=== PATIENT | male | born 1950 | race Caucasian/White ===

== ENCOUNTER 2020-07-09 13:08 | Observation (INO) | payer MEDICARE ==
[2020-07-09] MEDS ORDERED: Sodium Chloride 0.9% 10 ML Syringe FLUSH PRN (13:20)
[2020-07-09] MEDS ORDERED: Pantoprazole 40 MG in Sodium Chloride 0.9% 10 ML IV ONE (13:20)
[2020-07-09] MEDS ORDERED: Sodium Chloride 0.9% 2.5 ML Syringe FLUSH PRN (13:20)
--- NOTE | 2020-07-09 13:23 | EDM.PDOC ---
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 EMS found him wanting to refuse transport but admitting that he has lost blood per rectum and feels unsteady and like he might pass out. He wanted to get back in his truck and drive. He was told he was not going to be safe to do so and agreed to come into the emergency department to be evaluated and cleared if possible. The patient thinks his blood is from hemorrhoids. He says also it is dark and he has a history only of gastroesophageal reflux disease for which he is on no medicine. He is lightheaded and unsteady when he stands. Review of systems: As per history of present illness and below otherwise all systems reviewed and negative. Past medical history: As per history of present illness and as reviewed below otherwise noncontributory. Surgical history: As per history of present illness and as reviewed below otherwise noncontrib utory. Social history: No reported history of drug or alcohol abuse. Family history: As per history of present illness and as reviewed below otherwise noncontributory. Physical exam: Constitutional - well developed, well-nourished and in no acute distress HEENT - normocephalic, no evidence of trauma - external nose and mouth normal - no mass in neck and no JVD - mucosae moist EYES - full EOM, PERRL, no icterus - no evidence of inflammation, injection, or drainage Respiratory - no respiratory distress, equal bilateral expansion, lungs clear to auscultation and no abnormal lung sounds Cardiovascular - Regular Rhythm with S1 and S2 appreciated and no murmur, gallop or rub. GI - abdomen soft without distension or organomegaly - normal bowel sounds - no guard or rebound Musculoskeletal no gross deformity of long bones or joints - no tenderness, swelling or edema Neurologic - Alert and oriented times four - CN II-XII grossly intact - motor sensory and coordination symmetrically normal Psychiatric - appropriate mood and affect with normal thought content Hematologic - No petechiae or purpura - mucosa appropriate color and sclera not pale - normal nail bed color and refill Integument - no rash or evidence of trauma - normal turgor Diagnostics: [] Therapeutics: [] Impression: [] Plan: [] Definitive disposition and diagnosis as appropriate pending reevaluation and re view of above. - Related Data Allergies Allergy/AdvReac Type Severity Reaction Status Date / Time No Known Allergies Allergy Verified 07/09/20 13:30 Home Meds: Home Meds Omeprazole 20 mg PO DAILY 07/09/20 [History] ED ROS GENERAL - Review of Systems Review Of Systems: Comprehensive ROS is negative, except as noted in HPI. ED EXAM, GENERAL - Physical Exam Exam: See Below Free Text/Narrative:: My physical exam is in the HPI Course - Vital Signs Text/Narrative:: 1340 7 PM rectal exam the perianal soft tissues are soiled with incontinence of a few cc of melena. The rectal exam itself is normal. The melena is heme positive. Patient gets dizzy while he stands for orthostatic vital signs. His pressure drops but his pulse does not go up. 1558 hrs. blood pressure 177/99 pulse 69 patient is asymptomatic. Review of his labs and CT revealed that he has an active process-itis. Discussed with Dr. Wu who is on-call for surgery and also does endoscopy. Dr. Wu agreed to scope the patient if he needs it while he is here and will be participating in the care with Dr. Esquivel as needed or requested. Discussed again with Dr. Esquivel and she most graciously agreed to admit the patient to observation status. Last Recorded V/S: Last Vital Signs Temp 35.6 C L 07/09/20 13:25 Pulse 76 07/09/20 13:25 Resp 16 07/09/20 13:25 BP 150/80 H 07/09/20 13:25 Pulse Ox 95 07/09/20 13:25 Orthostatic Blood Pressure [ 110/75 Sitting] Orthostatic Blood Pressure [ 148/104 Supine] - Orders/Labs/Meds Orders: Active Orders 24 hr Category Date Time Status Admission Status [Patient Status] [ADT] Stat ADT 07/09/20 16:12 Ordered Cardiac Monitoring [RC] . DIRECTED Care 07/09/20 15:25 Active Cardiac Monitoring [RC] . DIRECTED Care 07/09/20 16:12 Ordered Orthostatic Vital Signs [RC] ASDIRECTED Care 07/09/20 13:21 Active CORONAVIRUS COVID-19 ARI [MOLEC] Stat Lab 07/09/20 14:51 Ordered CULTURE BLOOD [BC] Stat Lab 07/09/20 16:10 Ordered CULTURE BLOOD [BC] Stat Lab 07/09/20 16:10 Ordered Piperacillin/Tazobactam [Piperacil-Tazobact] 4.5 gm Med 07/09/20 16:10 Ordered Sodium Chloride 0.9% [Normal Saline] 100 ml IV ONETIME Sodium Chloride 0.9% [Saline Flush] Med 07/09/20 13:20 Active 10 ml FLUSH ASDIRECTED PRN Sodium Chloride 0.9% [Saline Flush] Med 07/09/20 13:20 Active 2.5 ml FLUSH ASDIRECTED PRN Sodium Chloride 0.9% with KCl [Normal Saline with 40 Med 07/09/20 14:15 Active mEq KCl] 1,000 ml IV ASDIRECTED metroNIDAZOLE/Normal Saline [Flagyl in NS 500 MG/100 ML Med 07/09/20 16:11 Ordered ] 500 mg Premix Bag 1 bag IV ONETIME Blood Culture x2 Reflex Set [OM.PC] Stat Oth 07/09/20 16:10 Ordered Saline Lock Insert [OM.PC] Stat Oth 07/09/20 13:20 Ordered Medication Orders Potassium Chloride/Sodium Chloride (Normal Saline With 40 Meq Kcl) 1,000 mls @ 250 mls/hr IV ASDIRECTED HUNG Last Admin: 07/09/20 14:18 Dose: 250 mls/hr Documented by: [id number] Piperacillin Sod/Tazobactam (Sod 4.5 gm/ Sodium Chloride) 100 mls @ 100 mls/hr IV ONETIME ONE Stop: 07/09/20 17:09 Metronidazole 500 mg/ Premix 100 mls @ 100 mls/hr IV ONETIME ONE Stop: 07/09/20 17:10 Sodium Chloride (Sodium Chloride 0.9% 10 Ml Syringe) 10 ml FLUSH ASDIRECTED PRN PRN Reason: Keep Vein Open Last Admin: 07/09/20 13:33 Dose: 10 ml Documented by: [id number] Sodium Chloride (Sodium Chloride 0.9% 2.5 Ml Syringe) 2.5 ml FLUSH ASDIRECTED PRN PRN Reason: Keep Vein Open Last Admin: 07/09/20 13:33 Dose: 2.5 ml Documented by: [id number] Labs: Laboratory Tests 07/09/20 07/09/20 Range/Units 13:26 13:26 WBC 15.19 H (4.0-11.0) K/uL RBC 4.01 L (4.50-5.90) M/uL Hgb 12.5 L (13.0-17.0) g/dL Hct 37.0 L (38.0-50.0) % MCV 92.3 (80.0-98.0) fL MCH 31.2 (27.0-32.0) pg MCHC 33.8 (31.0-37.0) g/dL RDW Std Deviation 54.5 (28.0-62.0) fl RDW Coeff of Teo 16 H (11.0-15.0) % Plt Count 375 (150-400) K/uL MPV 10.40 (7.40-12.00) fL Neut % (Auto) 75.9 (48.0-80.0) % Lymph % (Auto) 18.0 (16.0-40.0) % Jenkins % (Auto) 5.9 (0.0-15.0) % Eos % (Auto) 0.1 (0.0-7.0) % Baso % (Auto) 0.1 (0.0-1.5) % Neut # (Auto) 11.5 H (1.4-5.7) K/uL Lymph # (Auto) 2.7 H (0.6-2.4) K/uL Jenkins # (Auto) 0.9 H (0.0-0.8) K/uL Eos # (Auto) 0.0 (0.0-0.7) K/uL Baso # (Auto) 0.0 (0.0-0.1) K/uL Nucleated RBC % 0.0 /100WBC Nucleated RBCs # 0 K/uL Sodium 131 L (136-148) mmol/L Potassium 2.5 L (3.5-5.1) mmol/L Chloride 89 L (98-107) mmol/L Carbon Dioxide 29.7 (21.0-32.0) mmol/L BUN 19 H (7.0-18.0) mg/dL Creatinine 1.8 H (0.8-1.3) mg/dL Est Cr Clr Drug Dosing 47.60 mL/min Estimated GFR (MDRD) 37.8 ml/min Glucose 135 H (74-106) mg/dL Calcium 8.6 (8.5-10.1) mg/dL Total Bilirubin 1.4 H (0.2-1.0) mg/dL AST 45 H (15-37) IU/L ALT 33 (14-63) IU/L Alkaline Phosphatase 145 H (46-116) U/L Total Protein 7.1 (6.4-8.2) g/dL Albumin 3.3 L (3.4-5.0) g/dL Globulin 3.8 (2.6-4.0) g/dL Albumin/Globulin Ratio 0.9 (0.9-1.6) Lipase 56 L (73-393) U/L Meds: Medications Generic Name Dose Route Start Last Admin Trade Name Freq PRN Reason Stop Dose Admin Potassium Chloride/Sodium Chloride 1,000 mls @ 250 mls/hr 07/09/20 14:15 07/09/20 14:18 Normal Saline With 40 Meq Kcl IV 250 mls/hr ASDIRECTED HUNG Administration Piperacillin Sod/Tazobactam 100 mls @ 100 mls/hr 07/09/20 16:10 Sod 4.5 gm/ Sodium Chloride IV 07/09/20 17:09 ONETIME ONE Metronidazole 500 mg/ Premix 100 mls @ 100 mls/hr 07/09/20 16:11 IV 07/09/20 17:10 ONETIME ONE Sodium Chloride 10 ml 07/09/20 13:20 07/09/20 13:33 Sodium Chloride 0.9% 10 Ml Syringe FLUSH 10 ml ASDIRECTED PRN Administration Keep Vein Open Sodium Chloride 2.5 ml 07/09/20 13:20 07/09/20 13:33 Sodium Chloride 0.9% 2.5 Ml Syringe FLUSH 2.5 ml ASDIRECTED PRN Administration Keep Vein Open Discontinued Medications Generic Name Dose Route Start Last Admin Trade Name Freq PRN Reason Stop Dose Admin Pantoprazole Sodium 40 mg/ 10 mls @ 300 mls/hr 07/09/20 13:20 07/09/20 13:32 Sodium Chloride IV 07/09/20 13:21 300 mls/hr NOW ONE Administration Sodium Chloride 1,000 mls @ 1,000 mls/hr 07/09/20 13:49 07/09/20 14:11 Normal Saline IV 07/09/20 14:48 0 mls/hr .Bolus ONE Infusion Iopamidol 75 ml 07/09/20 15:13 07/09/20 15:14 Iopamidol 755 Mg/Ml 500 Ml Multipack Bottle IVPUSH 07/09/20 15:14 75 ml ONETIME STA Administration Departure - Departure Time of Disposition: 16:14 Disposition: Refer to Observation Condition: Good Clinical Impression: GI bleed, Proctitis, Hypokalemia, Hyponatremia, Volume depletion - Discharge Information Referrals: PCP,None [Primary Care Provider] - Forms: ED Department Discharge Sepsis Event Note (ED) - Focused Exam Vital Signs: Vital Signs Temp Pulse Resp BP Pulse Ox 07/09/20 13:25 35.6 C L 76 16 150/80 H 95 - My Orders Last 24 Hours: My Active Orders 07/09/20 13:20 Sodium Chloride 0.9% [Saline Flush] 10 ml FLUSH ASDIRECTED PRN Sodium Chloride 0.9% [Saline Flush] 2.5 ml FLUSH ASDIRECTED PRN Saline Lock Insert [OM.PC] Stat 07/09/20 13:21 Orthostatic Vital Signs [RC] ASDIRECTED 07/09/20 14:15 Sodium Chloride 0.9% with KCl [Normal Saline with 40 mEq KCl] 1,000 ml IV ASDIRECTED 07/09/20 14:51 CORONAVIRUS COVID-19 ARI [MOLEC] Stat 07/09/20 15:25 Cardiac Monitoring [RC] . DIRECTED 07/09/20 16:10 CULTURE BLOOD [BC] Stat CULTURE BLOOD [BC] Stat Piperacillin/Tazobactam [Piperacil-Tazobact] 4.5 gm Sodium Chloride 0.9% [Normal Saline] 100 ml IV ONETIME Blood Culture x2 Reflex Set [OM.PC] Stat 07/09/20 16:11 metroNIDAZOLE/Normal Saline [Flagyl in NS 500 MG/100 ML] 500 mg Premix Bag 1 b ag IV ONETIME 07/09/20 16:12 Admission Status [Patient Status] [ADT] Stat Cardiac Monitoring [RC] . DIRECTED - Assessment/Plan Last 24 Hours: My Active Orders 07/09/20 13:20 Sodium Chloride 0.9% [Saline Flush] 10 ml FLUSH ASDIRECTED PRN Sodium Chloride 0.9% [Saline Flush] 2.5 ml FLUSH ASDIRECTED PRN Saline Lock Insert [OM.PC] Stat 07/09/20 13:21 Orthostatic Vital Signs [RC] ASDIRECTED 07/09/20 14:15 Sodium Chloride 0.9% with KCl [Normal Saline with 40 mEq KCl] 1,000 ml IV ASDIRECTED 07/09/20 14:51 CORONAVIRUS COVID-19 ARI [MOLEC] Stat 07/09/20 15:25 Cardiac Monitoring [RC] . DIRECTED 07/09/20 16:10 CULTURE BLOOD [BC] Stat CULTURE BLOOD [BC] Stat Piperacillin/Tazobactam [Piperacil-Tazobact] 4.5 gm Sodium Chloride 0.9% [ Normal Saline] 100 ml IV ONETIME Blood Culture x2 Reflex Set [OM.PC] Stat 07/09/20 16:11 metroNIDAZOLE/Normal Saline [Flagyl in NS 500 MG/100 ML] 500 mg Premix Bag 1 bag IV ONETIME 07/09/20 16:12 Admission Status [Patient Status] [ADT] Stat Cardiac Monitoring [RC] . DIRECTED
[2020-07-09] MEDS ORDERED: Sodium Chloride 0.9% 1,000 ML IV ONE (13:49)
[2020-07-09 14:02] LABS: CARBON DIOXIDE,CO2 29.7 mmol/L (21.0-32.0); POTASSIUM,K 2.5 mmol/L (3.5-5.1)
[2020-07-09] MEDS ORDERED: Sodium Chloride 0.9% with KCl 1,000 ML IV SCH (14:15)
[2020-07-09] MEDS ORDERED: Iopamidol 755 MG/ML 500 ML Multipack Bottle IVPUSH STA (15:13)
--- NOTE | 2020-07-09 15:51 | CT ---
INDICATION: Melanoma, dizzy. TECHNIQUE: CT of the abdomen and pelvis without and with 75 cc Isovue 370 IV contrast including arterial and portal venous phases. Coronal and sagittal reconstructions. COMPARISON: None. FINDINGS: Few tiny low-attenuation lesions in the right hepatic lobe are too small to characterize. Hepatic and portal veins are patent. Cholelithiasis. The spleen, pancreas, and adrenal glands are negative. Symmetric enhancement of the kidneys. Moderate atrophy of the right kidney. No hydronephrosis. No obstructing urinary calculi. Mild diffuse bladder wall thickening may be related to chronic outlet obstruction. Mildly enlarged prostate gland calcifications. No bowel dilation. There is wall thickening and inflammatory fat stranding about the rectum compatible with a nonspecific proctitis (series 701, image 121). No pneumatosis or evidence of ischemia. No intraluminal blood products identified. Negative appendix. No small bowel dilation. The stomach is normal in appearance. No intraperitoneal free air or fluid. Aortoiliac vascular calcifications. The abdominal aorta is normal in caliber. The celiac and superior mesenteric arteries are patent without stenosis. The origin of the right renal artery is patent and normal in caliber, however the remainder of the right renal artery is diminutive in size. Narrowing of the proximal left renal artery atheromatous plaque. 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 No lymphadenopathy. Bilateral L5 pars interarticularis defects with mild anterolisthesis of L5 on S1. The lung bases are clear. Small pericardial effusion lying inferiorly and anteriorly. Coronary artery calcifications. Bilateral gynecomastia. IMPRESSION: 1. Wall thickening and inflammatory fat stranding about the rectum compatible with a nonspecific proctitis. No evidence of ischemia or intraluminal blood products. 2. Moderate atrophy of the right kidney with a diminutive right renal artery. 3. Narrowing of the proximal left renal artery by atheromatous plaque. 4. 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 5. Small pericardial effusion. Please note that all CT scans at this facility use dose modulation, iterative reconstruction, and/or weight-based dosing when appropriate to reduce radiation dose to as low as reasonably achievable. Dictated by Karen Bucio MD @ 07/09/2020 3:50:[address] Karen Bucio @ Jul 09 2020 3:50PM
[2020-07-09] MEDS ORDERED: Piperacillin/Tazobactam 4.5 GM in Sodium Chloride 0.9% 100 ML IV ONE (16:10)
[2020-07-09] MEDS ORDERED: metroNIDAZOLE/Normal Saline 500 MG in Premix Bag 1 BAG IV ONE (16:11)
--- NOTE | 2020-07-09 16:39 | PCM.HP.2 ---
<Anant Rodríguez - Last Filed: 07/09/20 17:09> H&P History of Present Illness - General Date of Service: 07/09/20 Admit Problem/Dx: Admission Diagnosis/Problem Admission Diagnosis/Problem GI bleed not requiring more than 4 units of blood in 24 hours, ICU, or surgery Source of Information: Patient History Limitations: Reports: No Limitations - History of Present Illness Initial Comments - Free Text/Narative: 69-year-old male with past medical history of GERD presenting to ED via EMS after having been found with unsteady gait while at a gas station and endorsing feeling unsteady and on the verge of passing out. Endorsed to EMS and ED provider significance dark stools x6 days with 2-3 bowel movements daily accompanied with melena. Denies any upper GI bleed or any other overt source of bleeding. Mentions that his bleeding is most likely from his hemorrhoids as he does have a history of hemorrhoids. Patient recently has been driving for 3 days and pulled in from [place]. ED course: Hemoccult positive. Overt melena noted at rectum. Positive orthostatic vital signs will BP drop without reflux tachycardia. Vitals 180/94. Pulse rate 78. Afebrile 96.1 O2 sat 98% room air Abdomen pelvis CT: Wall thickening and inflammatory fat stranding about the rectum compatible with nonspecific proctitis Narrowing of proximal left renal artery by atheromatous plaque. 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 Small pericardial effusion WBC 15. Hemoglobin 12.5. Sodium 131 Hypokalemia 2.5. IMELDA 1.8. T bili 1.4 Alk phos 145. Bedside: Patient endorses similar story as above. Mentions 2-3 bowel movements a day accompanied with dark stools x6 days. Denies any nausea/vomiting, history of upper GI bleed. Patient denies using excess amounts of Tylenol/Advil/aspirin. Denies any illicit drug use. Does endorse 1 to 2 pack/day tobacco abuse x40 years. - Related Data Allergies/Adverse Reactions: Allergies Allergy/AdvReac Type Severity Reaction Status Date / Time No Known Allergies Allergy Verified 07/09/20 13:30 Home Medications: Home Meds Omeprazole 20 mg PO DAILY 07/09/20 [History] Past Medical History Gastrointestinal History: Reports: GERD - Infectious Disease History Infectious Disease History: Reports: None Social & Family History - Family History Family Medical History: No Pertinent Family History - Recreational Drug Use Recreational Drug Use: No H&P Review of Systems - Review of Systems: Review Of Systems: See Below General: Reports: Weakness, Fatigue. Denies: Fever, Chills HEENT: Reports: No Symptoms Pulmonary: Reports: Cough. Denies: Shortness of Breath, Wheezing, Sputum, Hemoptysis Cardiovascular: Denies: No Symptoms Gastrointestinal: Reports: Black Stool, Melena, Nausea. Denies: Abdominal Pain, Bloody Stool, Constipation, Vomiting Genitourinary: Reports: No Symptoms Musculoskeletal: Reports: No Symptoms Psychiatric: Reports: No Symptoms Neurological: Reports: No Symptoms Exam - Exam Exam: See Below - Vital Signs Vital Signs: Last Vital Signs Temp 96.1 F L 07/09/20 13:25 Pulse 78 07/09/20 16:19 Resp 16 07/09/20 13:25 BP 180/94 H 07/09/20 16:19 Pulse Ox 98 07/09/20 16:19 Orthostatic Blood Pressure [ 110/75 Sitting] Orthostatic Blood Pressure [ 148/104 Supine] Weight: 86.183 kg - Exam Quality Assessment: No: Supplemental Oxygen General: Alert, Oriented, Cooperative HEENT: EOMI, Mucosa Moist & [place] Neck: Supple, Trachea Midline Lungs: Other (diminshed BS diffusely; no wheeze rales and or rhonchi ) Cardiovascular: Regular Rate, Regular Rhythm GI/Abdominal Exam: Soft, Non-Tender, Other (rectum: overt dark stool noted at rectal opening; good tone; +hemorrhoid ) Extremities: Normal Inspection Neurological: Normal Speech Neuro Extensive - Mental Status: Alert, Oriented x3 Psychiatric: Alert, Normal Mood - Patient Data Lab Results Last 24 hrs: Laboratory Results - last 24 hr 07/09/20 07/09/20 Range/Units 13:26 13:26 WBC 15.19 H (4.0-11.0) K/uL RBC 4.01 L (4.50-5.90) M/uL Hgb 12.5 L (13.0-17.0) g/dL Hct 37.0 L (38.0-50.0) % MCV 92.3 (80.0-98.0) fL MCH 31.2 (27.0-32.0) pg MCHC 33.8 (31.0-37.0) g/dL RDW Std Deviation 54.5 (28.0-62.0) fl RDW Coeff of Teo 16 H (11.0-15.0) % Plt Count 375 (150-400) K/uL MPV 10.40 (7.40-12.00) fL Neut % (Auto) 75.9 (48.0-80.0) % Lymph % (Auto) 18.0 (16.0-40.0) % [place] % (Auto) 5.9 (0.0-15.0) % Eos % (Auto) 0.1 (0.0-7.0) % Baso % (Auto) 0.1 (0.0-1.5) % Neut # (Auto) 11.5 H (1.4-5.7) K/uL Lymph # (Auto) 2.7 H (0.6-2.4) K/uL [place] # (Auto) 0.9 H (0.0-0.8) K/uL Eos # (Auto) 0.0 (0.0-0.7) K/uL Baso # (Auto) 0.0 (0.0-0.1) K/uL Nucleated RBC % 0.0 /100WBC Nucleated RBCs # 0 K/uL Sodium 131 L (136-148) mmol/L Potassium 2.5 L (3.5-5.1) mmol/L Chloride 89 L (98-107) mmol/L Carbon Dioxide 29.7 (21.0-32.0) mmol/L BUN 19 H (7.0-18.0) mg/dL Creatinine 1.8 H (0.8-1.3) mg/dL Est Cr Clr Drug Dosing 47.60 mL/min Estimated GFR (MDRD) 37.8 ml/min Glucose 135 H (74-106) mg/dL Calcium 8.6 (8.5-10.1) mg/dL Total Bilirubin 1.4 H (0.2-1.0) mg/dL AST 45 H (15-37) IU/L ALT 33 (14-63) IU/L Alkaline Phosphatase 145 H (46-116) U/L Total Protein 7.1 (6.4-8.2) g/dL Albumin 3.3 L (3.4-5.0) g/dL Globulin 3.8 (2.6-4.0) g/dL Albumin/Globulin Ratio 0.9 (0.9-1.6) Lipase 56 L (73-393) U/L Result Diagrams: 07/09/20 13:26 07/09/20 13:26 Sepsis Event Note - Evaluation Sepsis Screening Result: No Definite Risk - Focused Exam Vital Signs: Vital Signs Temp Pulse Resp BP Pulse Ox 07/09/20 16:19 78 180/94 H 98 07/09/20 13:25 96.1 F L 76 16 150/80 H 95 - Problem List (1) GI bleed SNOMED Code(s): 96829415 ICD Code: K92.2 - GASTROINTESTINAL HEMORRHAGE, UNSPECIFIED Status: Acute Current Visit: Yes (2) Hypokalemia SNOMED Code(s): 47280146 ICD Code: E87.6 - HYPOKALEMIA Status: Acute Current Visit: Yes (3) Hyponatremia SNOMED Code(s): 38190468 ICD Code: E87.1 - HYPO-OSMOLALITY AND HYPONATREMIA Status: Acute Current Visit: Yes (4) Proctitis SNOMED Code(s): 3155492 ICD Code: K62.89 - OTHER SPECIFIED DISEASES OF ANUS AND RECTUM Status: Acute Current Visit: Yes Problem List Initiated/Reviewed/Updated: Yes Orders Last 24hrs: Active Orders 24 hr Category Date Time Status Admission Status [Patient Status] [ADT] Stat ADT 07/09/20 16:12 Active Cardiac Monitoring [RC] . DIRECTED Care 07/09/20 15:25 Active Cardiac Monitoring [RC] . DIRECTED Care 07/09/20 16:12 Active Orthostatic Vital Signs [RC] ASDIRECTED Care 07/09/20 13:21 Active CORONAVIRUS COVID-19 ARI [MOLEC] Stat Lab 07/09/20 16:28 Received CULTURE BLOOD [BC] Stat Lab 07/09/20 16:10 Ordered CULTURE BLOOD [BC] Stat Lab 07/09/20 16:10 Ordered Piperacillin/Tazobactam [Piperacil-Tazobact] 4.5 gm Med 07/09/20 16:10 Active Sodium Chloride 0.9% [Normal Saline] 100 ml IV ONETIME Sodium Chloride 0.9% [Saline Flush] Med 07/09/20 13:20 Active 10 ml FLUSH ASDIRECTED PRN Sodium Chloride 0.9% [Saline Flush] Med 07/09/20 13:20 Active 2.5 ml FLUSH ASDIRECTED PRN Sodium Chloride 0.9% with KCl [Normal Saline with 40 Med 07/09/20 14:15 Active mEq KCl] 1,000 ml IV ASDIRECTED metroNIDAZOLE/Normal Saline [Flagyl in NS 500 MG/100 ML Med 07/09/20 16:11 Active ] 500 mg Premix Bag 1 bag IV ONETIME Blood Culture x2 Reflex Set [OM.PC] Stat Oth 07/09/20 16:10 Ordered Saline Lock Insert [OM.PC] Stat Oth 07/09/20 13:20 Ordered Medication Orders Potassium Chloride/Sodium Chloride (Normal Saline With 40 Meq Kcl) 1,000 mls @ 250 mls/hr IV ASDIRECTED HUNG Last Admin: 07/09/20 14:18 Dose: 250 mls/hr Documented by: [id number] Piperacillin Sod/Tazobactam (Sod 4.5 gm/ Sodium Chloride) 100 mls @ 100 mls/hr IV ONETIME ONE Stop: 07/09/20 17:09 Metronidazole 500 mg/ Premix 100 mls @ 100 mls/hr IV ONETIME ONE Stop: 07/09/20 17:10 Sodium Chloride (Sodium Chloride 0.9% 10 Ml Syringe) 10 ml FLUSH ASDIRECTED PRN PRN Reason: Keep Vein Open Last Admin: 07/09/20 13:33 Dose: 10 ml Documented by: [id number] Sodium Chloride (Sodium Chloride 0.9% 2.5 Ml Syringe) 2.5 ml FLUSH ASDIRECTED PRN PRN Reason: Keep Vein Open Last Admin: 07/09/20 13:33 Dose: 2.5 ml Documented by: [email or web address] Assessment/Plan Comment:: Assessment: 1. Proctitis 2. Hemoccult positive in setting of proctitis 3. Leukocytosis secondary to 1. 4. Normocytic anemia. 5. Hypokalemia 6. Hyponatremia. 7. Acute kidney injury. 8. Elevated total bilirubin 9. Past medical history: Tobacco abuse, GERD Plan Admit to observation. Full code. I's and O's per routine. Vitals per routine. Telemetry. Diet: Clear liquid diet GI prophylaxis: Pantoprazole 40 twice daily DVT prophylaxis: SCDs <Ovidio Esquivel - Last Filed: 07/09/20 18:19> H&P History of Present Illness - General Admit Problem/Dx: Admission Diagnosis/Problem Admission Diagnosis/Problem GI bleed not requiring more than 4 units of blood in 24 hours, ICU, or surgery Exam - Vital Signs Vital Signs: Last Vital Signs Temp 35.6 C L 07/09/20 13:25 Pulse 87 07/09/20 17:53 Resp 19 07/09/20 17:53 BP 174/86 H 07/09/20 17:53 Pulse Ox 98 07/09/20 17:53 Orthostatic Blood Pressure [ 110/75 Sitting] Orthostatic Blood Pressure [ 148/104 Supine] - Patient Data Lab Results Last 24 hrs: Laboratory Results - last 24 hr 07/09/20 07/09/20 07/09/20 Range/Units 13:26 13:26 16:28 WBC 15.19 H (4.0-11.0) K/uL RBC 4.01 L (4.50-5.90) M/uL Hgb 12.5 L (13.0-17.0) g/dL Hct 37.0 L (38.0-50.0) % MCV 92.3 (80.0-98.0) fL MCH 31.2 (27.0-32.0) pg MCHC 33.8 (31.0-37.0) g/dL RDW Std Deviation 54.5 (28.0-62.0) fl RDW Coeff of Teo 16 H (11.0-15.0) % Plt Count 375 (150-400) K/uL MPV 10.40 (7.40-12.00) fL Neut % (Auto) 75.9 (48.0-80.0) % Lymph % (Auto) 18.0 (16.0-40.0) % [place] % (Auto) 5.9 (0.0-15.0) % Eos % (Auto) 0.1 (0.0-7.0) % Baso % (Auto) 0.1 (0.0-1.5) % Neut # (Auto) 11.5 H (1.4-5.7) K/uL Lymph # (Auto) 2.7 H (0.6-2.4) K/uL [place] # (Auto) 0.9 H (0.0-0.8) K/uL Eos # (Auto) 0.0 (0.0-0.7) K/uL Baso # (Auto) 0.0 (0.0-0.1) K/uL Nucleated RBC % 0.0 /100WBC Nucleated RBCs # 0 K/uL Sodium 131 L (136-148) mmol/L Potassium 2.5 L (3.5-5.1) mmol/L Chloride 89 L (98-107) mmol/L Carbon Dioxide 29.7 (21.0-32.0) mmol/L BUN 19 H (7.0-18.0) mg/dL Creatinine 1.8 H (0.8-1.3) mg/dL Est Cr Clr Drug Dosing 47.60 mL/min Estimated GFR (MDRD) 37.8 ml/min Glucose 135 H (74-106) mg/dL Calcium 8.6 (8.5-10.1) mg/dL Total Bilirubin 1.4 H (0.2-1.0) mg/dL AST 45 H (15-37) IU/L ALT 33 (14-63) IU/L Alkaline Phosphatase 145 H (46-116) U/L Total Protein 7.1 (6.4-8.2) g/dL Albumin 3.3 L (3.4-5.0) g/dL Globulin 3.8 (2.6-4.0) g/dL Albumin/Globulin Ratio 0.9 (0.9-1.6) Lipase 56 L (73-393) U/L SARS-CoV-2 RNA (ARI) NEGATIVE (NEGATIVE) Result Diagrams: 07/09/20 13:26 07/09/20 13:26 Sepsis Event Note - Focused Exam Vital Signs: Vital Signs Temp Pulse Resp BP Pulse Ox 07/09/20 17:53 87 19 174/86 H 98 07/09/20 17:19 86 20 184/96 H 96 07/09/20 16:19 78 180/94 H 98 07/09/20 13:25 35.6 C L 76 16 150/80 H 95 Orders Last 24hrs: Active Orders 24 hr Category Date Time Status Admission Status [Patient Status] [ADT] Stat ADT 07/09/20 16:12 Active Antiembolic Devices [RC] PER UNIT ROUTINE Care 07/09/20 18:05 Active Cardiac Monitoring [RC] . DIRECTED Care 07/09/20 15:25 Active Cardiac Monitoring [RC] . DIRECTED Care 07/09/20 16:12 Active Orthostatic Vital Signs [RC] ASDIRECTED Care 07/09/20 13:21 Active Oxygen Therapy [RC] PRN Care 07/09/20 18:03 Active Up With Assistance [RC] ASDIRECTED Care 07/09/20 18:03 Active VTE/DVT Education [RC] PER UNIT ROUTINE Care 07/09/20 18:03 Active Vital Signs [RC] Q4H Care 07/09/20 18:03 Active PT Evaluation and Treatment [CONS] Routine Cons 07/09/20 18:03 Active Clear Liquid Diet [DIET] Diet 07/09/20 Breakfast Active C DIFFICILE AG/TOXIN W/REFLEX [RM] Routine Lab 07/09/20 18:10 Ordered CBC WITH AUTO DIFF [HEME] AM Lab 07/10/20 05:11 Ordered CBC WITH AUTO DIFF [HEME] AM Lab 07/11/20 05:11 Ordered CBC WITH AUTO DIFF [HEME] AM Lab 07/12/20 05:11 Ordered COMPREHENSIVE METABOLIC PN,CMP [CHEM] AM Lab 07/10/20 05:11 Ordered COMPREHENSIVE METABOLIC PN,CMP [CHEM] AM Lab 07/11/20 05:11 Ordered COMPREHENSIVE METABOLIC PN,CMP [CHEM] AM Lab 07/12/20 05:11 Ordered CULTURE BLOOD [BC] Stat Lab 07/09/20 16:31 Received CULTURE BLOOD [BC] Stat Lab 07/09/20 16:37 Received H PYLORI STOOL ANTIGEN [MREF] Routine Lab 07/09/20 18:10 Ordered HGB [HEMOGLOBIN] [HEME] Routine Lab 07/09/20 20:00 Ordered MAGNESIUM [CHEM] Routine Lab 07/09/20 13:26 Received PHOSPHORUS [CHEM] Routine Lab 07/09/20 13:26 Received SHIGA TOXIN 1 & 2 [MREF] Routine Lab 07/09/20 18:16 Ordered STOOL CULTURE/SHIGA TOXIN [MREF] Routine Lab 07/09/20 18:10 Ordered Bacitracin [Bacitracin Oint] Med 07/09/20 22:00 Ordered See Dose Instructions TOP TID Nicotine [Habitrol] Med 07/09/20 18:15 Ordered 21 mg TRDERM DAILY Ondansetron [Zofran ODT] Med 07/09/20 18:03 Ordered 4 mg PO Q4H PRN Pantoprazole [ProTONIX IV] 40 mg Med 07/10/20 05:00 Ordered Sodium Chloride 0.9% [Normal Saline] 10 ml IV Q24H Piperacillin/Tazobactam [Piperacil-Tazobact] 3.375 gm Med 07/09/20 18:15 Ordered Sodium Chloride 0.9% [Normal Saline] 50 ml IV Q6H Potassium Chloride [Klor-Con M20] Med 07/09/20 18:13 Once 40 meq PO ONETIME ONE Sodium Chloride 0.9% [Saline Flush] Med 07/09/20 13:20 Active 10 ml FLUSH ASDIRECTED PRN Sodium Chloride 0.9% [Saline Flush] Med 07/09/20 13:20 Active 2.5 ml FLUSH ASDIRECTED PRN Sodium Chloride 0.9% with KCl [Normal Saline with 40 Med 07/09/20 14:15 Active mEq KCl] 1,000 ml IV ASDIRECTED Blood Culture x2 Reflex Set [OM.PC] Stat Oth 07/09/20 16:10 Ordered Saline Lock Insert [OM.PC] Stat Oth 07/09/20 13:20 Ordered Sequential Compression Device [OM.PC] Per Unit Routine Oth 07/09/20 18:04 Ordered Resuscitation Status Routine Resus Stat 07/09/20 18:03 Ordered Medication Orders Bacitracin (Bacitracin Oint 28.35 Gm Tube) 0 gm TOP TID HUNG Potassium Chloride/Sodium Chloride (Normal Saline With 40 Meq Kcl) 1,000 mls @ 250 mls/hr IV ASDIRECTED HUNG Last Admin: 07/09/20 14:18 Dose: 250 mls/hr Documented by: [id number] Piperacillin Sod/Tazobactam (Sod 3.375 gm/ Sodium Chloride) 50 mls @ 100 mls/hr IV Q6H HUNG Pantoprazole Sodium 40 mg/ (Sodium Chloride) 10 mls @ 300 mls/hr IV Q24H [facility] Nicotine (Nicotine 21 Mg/24 Hr Patch) 21 mg TRDERM DAILY [facility] Ondansetron HCl (Ondansetron 4 Mg Tab.Dis) 4 mg PO Q4H PRN PRN Reason: nausea, able to take PO Potassium Chloride (Potassium Chloride 20 Meq Tab.Er) 40 meq PO ONETIME ONE Stop: 07/09/20 18:14 Sodium Chloride (Sodium Chloride 0.9% 10 Ml Syringe) 10 ml FLUSH ASDIRECTED PRN PRN Reason: Keep Vein Open Last Admin: 07/09/20 13:33 Dose: 10 ml Documented by: [id number] Sodium Chloride (Sodium Chloride 0.9% 2.5 Ml Syringe) 2.5 ml FLUSH ASDIRECTED PRN PRN Reason: Keep Vein Open Last Admin: 07/09/20 13:33 Dose: 2.5 ml Documented by: [id number] Assessment/Plan Comment:: I performed a history and physical exam of the patient and discussed management with resident. I have reviewed the residents note and agree with documented findings and plan unless otherwise specified in my note.' .
--- NOTE | 2020-07-09 17:13 | PCM.CONS ---
H&P History of Present Illness - General Date of Service: 07/09/20 Admit Problem/Dx: Admission Diagnosis/Problem Admission Diagnosis/Problem GI bleed not requiring more than 4 units of blood in 24 hours, ICU, or surgery Source of Information: Patient History Limitations: Reports: No Limitations - History of Present Illness Initial Comments - Free Text/Narative: patient is a 69-year-old male who presents to the emergency room with rectal bleeding. Rectal bleeding started 2 weeks ago. He has had 1-5 bowel movements a day that appear dark red. There were some days where they were more frequent. Recently he has been getting more weak and lightheaded. He had a colonoscopy 4-5 years ago. His father had a history of colon and prostate cancer. He has a history of prostate cancer. He is not sure if he has had polyps or not. He denies any fevers, chills, nausea or vomiting. He denies eating any food that seemed off. He had a syncopal episode today. He struck his left hand and had a skin tear. He was noted by a natural gas trader to be unsteady on his feet. EMS found him wanting to refuse transport but admitting that he has lost blood per rectum and feels unsteady and like he might pass out. He was brought into the ER. He had orthostatic hypotension. He was noted to have dark maroon colored diarrhea. He had a hgb of 12.5 His plt count was normal. His WBC was 15k. He was hypokalemic, hypochloremic and had a mildly elevated BUN and cr. A CT angiogram of the abdomen was performed. This showed renal stenosis, RIMA stenosis, and proctitis. - Related Data Allergies/Adverse Reactions: Allergies Allergy/AdvReac Type Severity Reaction Status Date / Time No Known Allergies Allergy Verified 07/09/20 13:30 Home Medications: Home Meds Omeprazole 20 mg PO DAILY 07/09/20 [History] Past Medical History Gastrointestinal History: Reports: GERD Oncologic (Cancer) History: Reports: Prostate - Infectious Disease History Infectious Disease History: Reports: None Social & Family History - Family History Family Medical History: No Pertinent Family History GI: Reports: Other (See Below) (colon cancer in dad) Oncologic: Reports: Prostate (father) - Recreational Drug Use Recreational Drug Use: No H&P Review of Systems - Review of Systems: Review Of Systems: Comprehensive ROS is negative, except as noted in HPI. Exam - Exam Exam: See Below - Vital Signs Vital Signs: Last Vital Signs Temp 35.6 C L 07/09/20 13:25 Pulse 78 07/09/20 16:19 Resp 16 07/09/20 13:25 BP 180/94 H 07/09/20 16:19 Pulse Ox 98 07/09/20 16:19 Orthostatic Blood Pressure [ 110/75 Sitting] Orthostatic Blood Pressure [ 148/104 Supine] Weight: 86.183 kg - Exam Quality Assessment: Supplemental Oxygen General: Alert, Oriented, Other (appears weak and older than stated age ) HEENT: Conjunctiva Clear, Mucosa Moist & [place], Posterior Pharynx Clear Neck: Supple, Trachea Midline Lungs: Clear to Auscultation, Normal Respiratory Effort Cardiovascular: Regular Rate, Regular Rhythm GI/Abdominal Exam: Soft, Non-Tender, No Distention, No Mass (Male) Exam: Normal Inspection Rectal (Males) Exam: Heme + Stool, Other (posterior hemorrhoid. No masses palpated in rectum ) Back Exam: Normal Inspection Extremities: Other (Skin tear on dorsum of left hand. bruising scattered along left arm ) - Patient Data Lab Results Last 24 hrs: Laboratory Results - last 24 hr 07/09/20 07/09/20 Range/Units 13:26 13:26 WBC 15.19 H (4.0-11.0) K/uL RBC 4.01 L (4.50-5.90) M/uL Hgb 12.5 L (13.0-17.0) g/dL Hct 37.0 L (38.0-50.0) % MCV 92.3 (80.0-98.0) fL MCH 31.2 (27.0-32.0) pg MCHC 33.8 (31.0-37.0) g/dL RDW Std Deviation 54.5 (28.0-62.0) fl RDW Coeff of Teo 16 H (11.0-15.0) % Plt Count 375 (150-400) K/uL MPV 10.40 (7.40-12.00) fL Neut % (Auto) 75.9 (48.0-80.0) % Lymph % (Auto) 18.0 (16.0-40.0) % [place] % (Auto) 5.9 (0.0-15.0) % Eos % (Auto) 0.1 (0.0-7.0) % Baso % (Auto) 0.1 (0.0-1.5) % Neut # (Auto) 11.5 H (1.4-5.7) K/uL Lymph # (Auto) 2.7 H (0.6-2.4) K/uL [place] # (Auto) 0.9 H (0.0-0.8) K/uL Eos # (Auto) 0.0 (0.0-0.7) K/uL Baso # (Auto) 0.0 (0.0-0.1) K/uL Nucleated RBC % 0.0 /100WBC Nucleated RBCs # 0 K/uL Sodium 131 L (136-148) mmol/L Potassium 2.5 L (3.5-5.1) mmol/L Chloride 89 L (98-107) mmol/L Carbon Dioxide 29.7 (21.0-32.0) mmol/L BUN 19 H (7.0-18.0) mg/dL Creatinine 1.8 H (0.8-1.3) mg/dL Est Cr Clr Drug Dosing 47.60 mL/min Estimated GFR (MDRD) 37.8 ml/min Glucose 135 H (74-106) mg/dL Calcium 8.6 (8.5-10.1) mg/dL Total Bilirubin 1.4 H (0.2-1.0) mg/dL AST 45 H (15-37) IU/L ALT 33 (14-63) IU/L Alkaline Phosphatase 145 H (46-116) U/L Total Protein 7.1 (6.4-8.2) g/dL Albumin 3.3 L (3.4-5.0) g/dL Globulin 3.8 (2.6-4.0) g/dL Albumin/Globulin Ratio 0.9 (0.9-1.6) Lipase 56 L (73-393) U/L Result Diagrams: 07/09/20 13:26 07/09/20 13:26 Sepsis Event Note - Evaluation Sepsis Screening Result: No Definite Risk - Focused Exam Vital Signs: Vital Signs Temp Pulse Resp BP Pulse Ox 07/09/20 16:19 78 180/94 H 98 07/09/20 13:25 35.6 C L 76 16 150/80 H 95 Consult PN Assessment/Plan Problem List Initiated/Reviewed/Updated: Yes Plan: The patient and I discusses the reasons he may have proctitis. This includes infectious or inflammatory. I discussed the possibility of endoscopy while he is in the hospital. He was under the impression he would leave tomorrow. I explained that we will discuss this more tomorrow. He will be admitted to medicine for resuscitation, electrolyte correction, and heme monitoring. I would suggest that the patient have stool cultures including H pylori. For the skin tear on his hand, apply bacitracin and a bandage daily. Continue broad spectrum antibiotics for possible infectious source. Will continue to follow patient while here in the hospital.
[2020-07-09] MEDS ORDERED: Ondansetron 4 MG Tab.DIS PO PRN (18:03)
[2020-07-09] MEDS ORDERED: Potassium Chloride 20 MEQ Tab.ER PO ONE (18:13)
[2020-07-09] MEDS ORDERED: Potassium Chloride Riders 40 MEQ in Premix Bag 1 BAG IV ONE (18:13)
[2020-07-09] MEDS: Nicotine 21 MG/24 Hr Patch TRDERM SCH (20:06)
[2020-07-09] MEDS: Bacitracin Oint 28.35 GM Tube TOP SCH (21:30)
[2020-07-09] MEDS: Piperacillin/Tazobactam 3.375 GM in Sodium Chloride 0.9% 50 ML IV SCH (21:31)
[2020-07-09] MEDS: Sodium Chloride 0.9% 1,000 ML IV SCH (21:33)
[2020-07-10] MEDS: metroNIDAZOLE/Normal Saline 500 MG in Premix Bag 1 BAG IV SCH ×4 (00:16→21:59)
[2020-07-10] MEDS: Piperacillin/Tazobactam 3.375 GM in Sodium Chloride 0.9% 50 ML IV SCH ×4 (04:19→21:06)
[2020-07-10] MEDS: Bacitracin Oint 28.35 GM Tube TOP SCH ×3 (05:21→21:08)
[2020-07-10 06:24] LABS: CARBON DIOXIDE,CO2 31.3 mmol/L (21.0-32.0)
[2020-07-10 06:36] LABS: POTASSIUM,K 2.3 mmol/L (3.5-5.1)
[2020-07-10] MEDS ORDERED: Potassium Chloride Riders 40 MEQ in Premix Bag 1 BAG IV ONE (06:41)
[2020-07-10] MEDS ORDERED: Potassium Chloride 20 MEQ Tab.ER PO ONE ×2 (06:42→12:35)
[2020-07-10] MEDS ORDERED: Sodium Chloride 0.9% with KCl 1,000 ML IV ONE (07:15)
[2020-07-10] MEDS ORDERED: Famotidine 20 MG Tab PO ONE (08:30)
[2020-07-10] MEDS: Nicotine 21 MG/24 Hr Patch TRDERM SCH (08:51)
[2020-07-10] MEDS ORDERED: Pantoprazole 40 MG in Sodium Chloride 0.9% 10 ML IV SCH (09:00)
--- NOTE | 2020-07-10 11:42 | PCM.PN ---
<Anant Rodríguez - Last Filed: 07/10/20 17:00> - General Info Date of Service: 07/10/20 Subjective Update: Bedside: endorses some heart burn and feeling hungy. Overnight some small dark stools but otherwise improving - Review of Systems General: Denies: Fatigue Cardiovascular: Reports: No Symptoms Gastrointestinal: Reports: Melena Genitourinary: Reports: No Symptoms Neurological: Reports: No Symptoms - Patient Data Vitals - Most Recent: Last Vital Signs Temp 97.8 F 07/10/20 08:00 Pulse 66 07/10/20 08:00 Resp 18 07/10/20 08:00 BP 154/80 H 07/10/20 08:00 Pulse Ox 93 L 07/10/20 08:00 Orthostatic Blood Pressure [ 110/75 Sitting] Orthostatic Blood Pressure [ 148/104 Supine] Weight - Most Recent: 69.4 kg I&O - Last 24 Hours: Intake & Output 07/09/20 07/10/20 07/10/20 22:59 06:59 14:59 Intake Total 820 Output Total 1150 Balance -330 Lab Results Last 24 Hours: Laboratory Results - last 24 hr 07/09/20 07/09/20 07/09/20 Range/Units 13:26 13:26 13:26 WBC 15.19 H (4.0-11.0) K/uL RBC 4.01 L (4.50-5.90) M/uL Hgb 12.5 L (13.0-17.0) g/dL Hct 37.0 L (38.0-50.0) % MCV 92.3 (80.0-98.0) fL MCH 31.2 (27.0-32.0) pg MCHC 33.8 (31.0-37.0) g/dL RDW Std Deviation 54.5 (28.0-62.0) fl RDW Coeff of Teo 16 H (11.0-15.0) % Plt Count 375 (150-400) K/uL MPV 10.40 (7.40-12.00) fL Neut % (Auto) 75.9 (48.0-80.0) % Lymph % (Auto) 18.0 (16.0-40.0) % Rabun % (Auto) 5.9 (0.0-15.0) % Eos % (Auto) 0.1 (0.0-7.0) % Baso % (Auto) 0.1 (0.0-1.5) % Neut # (Auto) 11.5 H (1.4-5.7) K/uL Lymph # (Auto) 2.7 H (0.6-2.4) K/uL Rabun # (Auto) 0.9 H (0.0-0.8) K/uL Eos # (Auto) 0.0 (0.0-0.7) K/uL Baso # (Auto) 0.0 (0.0-0.1) K/uL Nucleated RBC % 0.0 /100WBC Nucleated RBCs # 0 K/uL Sodium 131 L (136-148) mmol/L Potassium 2.5 L (3.5-5.1) mmol/L Chloride 89 L (98-107) mmol/L Carbon Dioxide 29.7 (21.0-32.0) mmol/L BUN 19 H (7.0-18.0) mg/dL Creatinine 1.8 H (0.8-1.3) mg/dL Est Cr Clr Drug Dosing 47.60 mL/min Estimated GFR (MDRD) 37.8 ml/min Glucose 135 H (74-106) mg/dL Calcium 8.6 (8.5-10.1) mg/dL Phosphorus 3.7 (2.6-4.7) mg/dL Magnesium 1.8 (1.8-2.4) mg/dL Total Bilirubin 1.4 H (0.2-1.0) mg/dL AST 45 H (15-37) IU/L ALT 33 (14-63) IU/L Alkaline Phosphatase 145 H (46-116) U/L Total Protein 7.1 (6.4-8.2) g/dL Albumin 3.3 L (3.4-5.0) g/dL Globulin 3.8 (2.6-4.0) g/dL Albumin/Globulin Ratio 0.9 (0.9-1.6) Lipase 56 L (73-393) U/L Urine Opiates Screen (NEGATIVE) Ur Oxycodone Screen (NEGATIVE) Urine Methadone Screen (NEGATIVE) Ur Barbiturates Screen (NEGATIVE) Ur Phencyclidine Scrn (NEGATIVE) Ur Amphetamine Screen (NEGATIVE) U Methamphetamines Scrn (NEGATIVE) U Benzodiazepines Scrn (NEGATIVE) U Cocaine Metab Screen (NEGATIVE) U Marijuana (THC) Screen (NEGATIVE) SARS-CoV-2 RNA (ARI) (NEGATIVE) 07/09/20 07/09/20 07/09/20 Range/Units 16:28 20:10 21:00 WBC (4.0-11.0) K/uL RBC (4.50-5.90) M/uL Hgb 11.2 L (13.0-17.0) g/dL Hct (38.0-50.0) % MCV (80.0-98.0) fL MCH (27.0-32.0) pg MCHC (31.0-37.0) g/dL RDW Std Deviation (28.0-62.0) fl RDW Coeff of Teo (11.0-15.0) % Plt Count (150-400) K/uL MPV (7.40-12.00) fL Neut % (Auto) (48.0-80.0) % Lymph % (Auto) (16.0-40.0) % Rabun % (Auto) (0.0-15.0) % Eos % (Auto) (0.0-7.0) % Baso % (Auto) (0.0-1.5) % Neut # (Auto) (1.4-5.7) K/uL Lymph # (Auto) (0.6-2.4) K/uL Rabun # (Auto) (0.0-0.8) K/uL Eos # (Auto) (0.0-0.7) K/uL Baso # (Auto) (0.0-0.1) K/uL Nucleated RBC % /100WBC Nucleated RBCs # K/uL Sodium (136-148) mmol/L Potassium (3.5-5.1) mmol/L Chloride (98-107) mmol/L Carbon Dioxide (21.0-32.0) mmol/L BUN (7.0-18.0) mg/dL Creatinine (0.8-1.3) mg/dL Est Cr Clr Drug Dosing mL/min Estimated GFR (MDRD) ml/min Glucose (74-106) mg/dL Calcium (8.5-10.1) mg/dL Phosphorus (2.6-4.7) mg/dL Magnesium (1.8-2.4) mg/dL Total Bilirubin (0.2-1.0) mg/dL AST (15-37) IU/L ALT (14-63) IU/L Alkaline Phosphatase (46-116) U/L Total Protein (6.4-8.2) g/dL Albumin (3.4-5.0) g/dL Globulin (2.6-4.0) g/dL Albumin/Globulin Ratio (0.9-1.6) Lipase (73-393) U/L Urine Opiates Screen NEGATIVE (NEGATIVE) Ur Oxycodone Screen NEGATIVE (NEGATIVE) Urine Methadone Screen NEGATIVE (NEGATIVE) Ur Barbiturates Screen NEGATIVE (NEGATIVE) Ur Phencyclidine Scrn NEGATIVE (NEGATIVE) Ur Amphetamine Screen NEGATIVE (NEGATIVE) U Methamphetamines Scrn NEGATIVE (NEGATIVE) U Benzodiazepines Scrn NEGATIVE (NEGATIVE) U Cocaine Metab Screen NEGATIVE (NEGATIVE) U Marijuana (THC) Screen NEGATIVE (NEGATIVE) SARS-CoV-2 RNA (ARI) NEGATIVE (NEGATIVE) 07/10/20 07/10/20 Range/Units 04:58 04:58 WBC 8.68 (4.0-11.0) K/uL RBC 3.21 L (4.50-5.90) M/uL Hgb 10.0 L (13.0-17.0) g/dL Hct 29.6 L (38.0-50.0) % MCV 92.2 (80.0-98.0) fL MCH 31.2 (27.0-32.0) pg MCHC 33.8 (31.0-37.0) g/dL RDW Std Deviation 54.5 (28.0-62.0) fl RDW Coeff of Teo 16 H (11.0-15.0) % Plt Count 269 (150-400) K/uL MPV 10.50 (7.40-12.00) fL Neut % (Auto) 58.2 (48.0-80.0) % Lymph % (Auto) 33.4 (16.0-40.0) % Rabun % (Auto) 7.1 (0.0-15.0) % Eos % (Auto) 1.0 (0.0-7.0) % Baso % (Auto) 0.3 (0.0-1.5) % Neut # (Auto) 5.0 (1.4-5.7) K/uL Lymph # (Auto) 2.9 H (0.6-2.4) K/uL Rabun # (Auto) 0.6 (0.0-0.8) K/uL Eos # (Auto) 0.1 (0.0-0.7) K/uL Baso # (Auto) 0.0 (0.0-0.1) K/uL Nucleated RBC % 0.0 /100WBC Nucleated RBCs # 0 K/uL Sodium 136 (136-148) mmol/L Potassium 2.3 L* (3.5-5.1) mmol/L Chloride 99 (98-107) mmol/L Carbon Dioxide 31.3 (21.0-32.0) mmol/L BUN 16 (7.0-18.0) mg/dL Creatinine 1.4 H (0.8-1.3) mg/dL Est Cr Clr Drug Dosing 50.26 mL/min Estimated GFR (MDRD) 50.5 ml/min Glucose 81 (74-106) mg/dL Calcium 7.4 L (8.5-10.1) mg/dL Phosphorus (2.6-4.7) mg/dL Magnesium (1.8-2.4) mg/dL Total Bilirubin 0.8 (0.2-1.0) mg/dL AST 29 (15-37) IU/L ALT 23 (14-63) IU/L Alkaline Phosphatase 108 (46-116) U/L Total Protein 5.5 L (6.4-8.2) g/dL Albumin 2.5 L (3.4-5.0) g/dL Globulin 3.0 (2.6-4.0) g/dL Albumin/Globulin Ratio 0.8 L (0.9-1.6) Lipase (73-393) U/L Urine Opiates Screen (NEGATIVE) Ur Oxycodone Screen (NEGATIVE) Urine Methadone Screen (NEGATIVE) Ur Barbiturates Screen (NEGATIVE) Ur Phencyclidine Scrn (NEGATIVE) Ur Amphetamine Screen (NEGATIVE) U Methamphetamines Scrn (NEGATIVE) U Benzodiazepines Scrn (NEGATIVE) U Cocaine Metab Screen (NEGATIVE) U Marijuana (THC) Screen (NEGATIVE) SARS-CoV-2 RNA (ARI) (NEGATIVE) [place] Results Last 24 Hours: Microbiology 07/09/20 10:00 C. difficile Antigen & Toxins A,B - Final Stool / Feces Med Orders - Current: Current Medications Bacitracin (Bacitracin Oint 28.35 Gm Tube) 0 gm TOP TID [facility] Last Admin: 07/10/20 05:21 Dose: 1 applic Documented by: Piperacillin Sod/Tazobactam (Sod 3.375 gm/ Sodium Chloride) 50 mls @ 100 mls/hr IV Q6H [facility] Last Admin: 07/10/20 10:14 Dose: 100 mls/hr Documented by: Pantoprazole Sodium 40 mg/ (Sodium Chloride) 10 mls @ 300 mls/hr IV DAILY [facility] Last Admin: 07/10/20 08:47 Dose: 300 mls/hr Documented by: Metronidazole 500 mg/ Premix 100 mls @ 100 mls/hr IV TID [facility] Last Admin: 07/10/20 05:15 Dose: 100 mls/hr Documented by: Sodium Chloride (Normal Saline) 1,000 mls @ 125 mls/hr IV ASDIRECTED [facility] Last Admin: 07/09/20 21:33 Dose: 125 mls/hr Documented by: Nicotine (Nicotine 21 Mg/24 Hr Patch) 21 mg TRDERM DAILY [facility] Last Admin: 07/10/20 08:51 Dose: 21 mg Documented by: Ondansetron HCl (Ondansetron 4 Mg Tab.Dis) 4 mg PO Q4H PRN PRN Reason: nausea, able to take PO Sodium Chloride (Sodium Chloride 0.9% 10 Ml Syringe) 10 ml FLUSH ASDIRECTED PRN PRN Reason: Keep Vein Open Last Admin: 07/09/20 13:33 Dose: 10 ml Documented by: Sodium Chloride (Sodium Chloride 0.9% 2.5 Ml Syringe) 2.5 ml FLUSH ASDIRECTED PRN PRN Reason: Keep Vein Open Last Admin: 07/09/20 13:33 Dose: 2.5 ml Documented by: Discontinued Medications Famotidine (Famotidine 20 Mg Tab) 20 mg PO ONETIME ONE Stop: 07/10/20 08:31 Last Admin: 07/10/20 08:47 Dose: 20 mg Documented by: Pantoprazole Sodium 40 mg/ (Sodium Chloride) 10 mls @ 300 mls/hr IV NOW ONE Stop: 07/09/20 13:21 Last Admin: 07/09/20 13:32 Dose: 300 mls/hr Documented by: Sodium Chloride (Normal Saline) 1,000 mls @ 1,000 mls/hr IV .Bolus ONE Stop: 07/09/20 14:48 Last Infusion: 07/09/20 14:11 Dose: 0 mls/hr Documented by: Potassium Chloride/Sodium Chloride (Normal Saline With 40 Meq Kcl) 1,000 mls @ 250 mls/hr IV ASDIRECTED [facility] Last Admin: 07/09/20 14:18 Dose: 250 mls/hr Documented by: Piperacillin Sod/Tazobactam (Sod 4.5 gm/ Sodium Chloride) 100 mls @ 100 mls/hr IV ONETIME ONE Stop: 07/09/20 17:09 Last Admin: 07/09/20 17:05 Dose: 100 mls/hr Documented by: Metronidazole 500 mg/ Premix 100 mls @ 100 mls/hr IV ONETIME ONE Stop: 07/09/20 17:10 Last Admin: 07/09/20 17:03 Dose: 100 mls/hr Documented by: Potassium Chloride 40 meq/ (Premix) 100 mls @ 25 mls/hr IV ONETIME ONE Stop: 07/09/20 22:12 Last Admin: 07/09/20 20:32 Dose: Not Given Documented by: Potassium Chloride/Sodium Chloride (Normal Saline With 40 Meq Kcl) 1,000 mls @ 250 mls/hr IV ONETIME ONE Stop: 07/10/20 11:14 Last Admin: 07/10/20 07:31 Dose: 250 mls/hr Documented by: Iopamidol (Iopamidol 755 Mg/Ml 500 Ml Multipack Bottle) 75 ml IVPUSH ONETIME STA Stop: 07/09/20 15:14 Last Admin: 07/09/20 15:14 Dose: 75 ml Documented by: Potassium Chloride (Potassium Chloride 20 Meq Tab.Er) 40 meq PO ONETIME ONE Stop: 07/09/20 18:14 Last Admin: 07/09/20 20:06 Dose: 40 meq Documented by: Potassium Chloride (Potassium Chloride 20 Meq Tab.Er) 40 meq PO ONETIME ONE Stop: 07/10/20 06:43 Last Admin: 07/10/20 06:59 Dose: 40 meq Documented by: - Exam General: Alert, Oriented Lungs: Clear to Auscultation, Normal Respiratory Effort Cardiovascular: Regular Rate, Regular Rhythm GI/Abdominal Exam: Soft, Non-Tender Skin: Warm Psy/Mental Status: Alert, Normal Affect, Normal Mood - Patient Data Lab Results Last 24 hrs: Laboratory Results - last 24 hr 07/09/20 07/09/20 07/09/20 Range/Units 13:26 13:26 13:26 WBC 15.19 H (4.0-11.0) K/uL RBC 4.01 L (4.50-5.90) M/uL Hgb 12.5 L (13.0-17.0) g/dL Hct 37.0 L (38.0-50.0) % MCV 92.3 (80.0-98.0) fL MCH 31.2 (27.0-32.0) pg MCHC 33.8 (31.0-37.0) g/dL RDW Std Deviation 54.5 (28.0-62.0) fl RDW Coeff of Teo 16 H (11.0-15.0) % Plt Count 375 (150-400) K/uL MPV 10.40 (7.40-12.00) fL Neut % (Auto) 75.9 (48.0-80.0) % Lymph % (Auto) 18.0 (16.0-40.0) % Rabun % (Auto) 5.9 (0.0-15.0) % Eos % (Auto) 0.1 (0.0-7.0) % Baso % (Auto) 0.1 (0.0-1.5) % Neut # (Auto) 11.5 H (1.4-5.7) K/uL Lymph # (Auto) 2.7 H (0.6-2.4) K/uL Rabun # (Auto) 0.9 H (0.0-0.8) K/uL Eos # (Auto) 0.0 (0.0-0.7) K/uL Baso # (Auto) 0.0 (0.0-0.1) K/uL Nucleated RBC % 0.0 /100WBC Nucleated RBCs # 0 K/uL Sodium 131 L (136-148) mmol/L Potassium 2.5 L (3.5-5.1) mmol/L Chloride 89 L (98-107) mmol/L Carbon Dioxide 29.7 (21.0-32.0) mmol/L BUN 19 H (7.0-18.0) mg/dL Creatinine 1.8 H (0.8-1.3) mg/dL Est Cr Clr Drug Dosing 47.60 mL/min Estimated GFR (MDRD) 37.8 ml/min Glucose 135 H (74-106) mg/dL Calcium 8.6 (8.5-10.1) mg/dL Phosphorus 3.7 (2.6-4.7) mg/dL Magnesium 1.8 (1.8-2.4) mg/dL Total Bilirubin 1.4 H (0.2-1.0) mg/dL AST 45 H (15-37) IU/L ALT 33 (14-63) IU/L Alkaline Phosphatase 145 H (46-116) U/L Total Protein 7.1 (6.4-8.2) g/dL Albumin 3.3 L (3.4-5.0) g/dL Globulin 3.8 (2.6-4.0) g/dL Albumin/Globulin Ratio 0.9 (0.9-1.6) Lipase 56 L (73-393) U/L Urine Opiates Screen (NEGATIVE) Ur Oxycodone Screen (NEGATIVE) Urine Methadone Screen (NEGATIVE) Ur Barbiturates Screen (NEGATIVE) Ur Phencyclidine Scrn (NEGATIVE) Ur Amphetamine Screen (NEGATIVE) U Methamphetamines Scrn (NEGATIVE) U Benzodiazepines Scrn (NEGATIVE) U Cocaine Metab Screen (NEGATIVE) U Marijuana (THC) Screen (NEGATIVE) SARS-CoV-2 RNA (ARI) (NEGATIVE) 07/09/20 07/09/20 07/09/20 Range/Units 16:28 20:10 21:00 WBC (4.0-11.0) K/uL RBC (4.50-5.90) M/uL Hgb 11.2 L (13.0-17.0) g/dL Hct (38.0-50.0) % MCV (80.0-98.0) fL MCH (27.0-32.0) pg MCHC (31.0-37.0) g/dL RDW Std Deviation (28.0-62.0) fl RDW Coeff of Teo (11.0-15.0) % Plt Count (150-400) K/uL MPV (7.40-12.00) fL Neut % (Auto) (48.0-80.0) % Lymph % (Auto) (16.0-40.0) % Rabun % (Auto) (0.0-15.0) % Eos % (Auto) (0.0-7.0) % Baso % (Auto) (0.0-1.5) % Neut # (Auto) (1.4-5.7) K/uL Lymph # (Auto) (0.6-2.4) K/uL Rabun # (Auto) (0.0-0.8) K/uL Eos # (Auto) (0.0-0.7) K/uL Baso # (Auto) (0.0-0.1) K/uL Nucleated RBC % /100WBC Nucleated RBCs # K/uL Sodium (136-148) mmol/L Potassium (3.5-5.1) mmol/L Chloride (98-107) mmol/L Carbon Dioxide (21.0-32.0) mmol/L BUN (7.0-18.0) mg/dL Creatinine (0.8-1.3) mg/dL Est Cr Clr Drug Dosing mL/min Estimated GFR (MDRD) ml/min Glucose (74-106) mg/dL Calcium (8.5-10.1) mg/dL Phosphorus (2.6-4.7) mg/dL Magnesium (1.8-2.4) mg/dL Total Bilirubin (0.2-1.0) mg/dL AST (15-37) IU/L ALT (14-63) IU/L Alkaline Phosphatase (46-116) U/L Total Protein (6.4-8.2) g/dL Albumin (3.4-5.0) g/dL Globulin (2.6-4.0) g/dL Albumin/Globulin Ratio (0.9-1.6) Lipase (73-393) U/L Urine Opiates Screen NEGATIVE (NEGATIVE) Ur Oxycodone Screen NEGATIVE (NEGATIVE) Urine Methadone Screen NEGATIVE (NEGATIVE) Ur Barbiturates Screen NEGATIVE (NEGATIVE) Ur Phencyclidine Scrn NEGATIVE (NEGATIVE) Ur Amphetamine Screen NEGATIVE (NEGATIVE) U Methamphetamines Scrn NEGATIVE (NEGATIVE) U Benzodiazepines Scrn NEGATIVE (NEGATIVE) U Cocaine Metab Screen NEGATIVE (NEGATIVE) U Marijuana (THC) Screen NEGATIVE (NEGATIVE) SARS-CoV-2 RNA (ARI) NEGATIVE (NEGATIVE) 07/10/20 07/10/20 Range/Units 04:58 04:58 WBC 8.68 (4.0-11.0) K/uL RBC 3.21 L (4.50-5.90) M/uL Hgb 10.0 L (13.0-17.0) g/dL Hct 29.6 L (38.0-50.0) % MCV 92.2 (80.0-98.0) fL MCH 31.2 (27.0-32.0) pg MCHC 33.8 (31.0-37.0) g/dL RDW Std Deviation 54.5 (28.0-62.0) fl RDW Coeff of Teo 16 H (11.0-15.0) % Plt Count 269 (150-400) K/uL MPV 10.50 (7.40-12.00) fL Neut % (Auto) 58.2 (48.0-80.0) % Lymph % (Auto) 33.4 (16.0-40.0) % Rabun % (Auto) 7.1 (0.0-15.0) % Eos % (Auto) 1.0 (0.0-7.0) % Baso % (Auto) 0.3 (0.0-1.5) % Neut # (Auto) 5.0 (1.4-5.7) K/uL Lymph # (Auto) 2.9 H (0.6-2.4) K/uL Rabun # (Auto) 0.6 (0.0-0.8) K/uL Eos # (Auto) 0.1 (0.0-0.7) K/uL Baso # (Auto) 0.0 (0.0-0.1) K/uL Nucleated RBC % 0.0 /100WBC Nucleated RBCs # 0 K/uL Sodium 136 (136-148) mmol/L Potassium 2.3 L* (3.5-5.1) mmol/L Chloride 99 (98-107) mmol/L Carbon Dioxide 31.3 (21.0-32.0) mmol/L BUN 16 (7.0-18.0) mg/dL Creatinine 1.4 H (0.8-1.3) mg/dL Est Cr Clr Drug Dosing 50.26 mL/min Estimated GFR (MDRD) 50.5 ml/min Glucose 81 (74-106) mg/dL Calcium 7.4 L (8.5-10.1) mg/dL Phosphorus (2.6-4.7) mg/dL Magnesium (1.8-2.4) mg/dL Total Bilirubin 0.8 (0.2-1.0) mg/dL AST 29 (15-37) IU/L ALT 23 (14-63) IU/L Alkaline Phosphatase 108 (46-116) U/L Total Protein 5.5 L (6.4-8.2) g/dL Albumin 2.5 L (3.4-5.0) g/dL Globulin 3.0 (2.6-4.0) g/dL Albumin/Globulin Ratio 0.8 L (0.9-1.6) Lipase (73-393) U/L Urine Opiates Screen (NEGATIVE) Ur Oxycodone Screen (NEGATIVE) Urine Methadone Screen (NEGATIVE) Ur Barbiturates Screen (NEGATIVE) Ur Phencyclidine Scrn (NEGATIVE) Ur Amphetamine Screen (NEGATIVE) U Methamphetamines Scrn (NEGATIVE) U Benzodiazepines Scrn (NEGATIVE) U Cocaine Metab Screen (NEGATIVE) U Marijuana (THC) Screen (NEGATIVE) SARS-CoV-2 RNA (ARI) (NEGATIVE) Result Diagrams: 07/10/20 04:58 07/10/20 12:01 [place] Results Last 24 hrs: Microbiology 07/09/20 10:00 C. difficile Antigen & Toxins A,B - Final Stool / Feces Sepsis Event Note - Evaluation Sepsis Screening Result: No Definite Risk - Focused Exam Vital Signs: Vital Signs Temp Temp Pulse Resp BP BP Pulse Ox 07/10/20 08:00 97.8 F 66 18 154/80 H 93 L 07/10/20 04:00 98.1 F 65 18 148/80 H 96 07/10/20 01:00 98.2 F 153/85 H 97 07/10/20 00:00 97.5 F 56 L 18 153/85 H 98 - Problem List & Annotations (1) GI bleed SNOMED Code(s): 57950147 Code(s): K92.2 - GASTROINTESTINAL HEMORRHAGE, UNSPECIFIED Status: Acute (2) Hypokalemia SNOMED Code(s): 68779857 Code(s): E87.6 - HYPOKALEMIA Status: Acute (3) Hyponatremia SNOMED Code(s): 75800630 Code(s): E87.1 - HYPO-OSMOLALITY AND HYPONATREMIA Status: Acute (4) Proctitis SNOMED Code(s): 3628086 Code(s): K62.89 - OTHER SPECIFIED DISEASES OF ANUS AND RECTUM Status: Acute - Problem List Review Problem List Initiated/Reviewed/Updated: Yes - My Orders Last 24 Hours: My Active Orders 07/09/20 18:03 Oxygen Therapy [RC] PRN Up With Assistance [RC] ASDIRECTED VTE/DVT Education [RC] PER UNIT ROUTINE Vital Signs [RC] Q4H PT Evaluation and Treatment [CONS] Routine Ondansetron [Zofran ODT] 4 mg PO Q4H PRN Resuscitation Status Routine 07/09/20 18:04 Sequential Compression Device [OM.PC] Per Unit Routine 07/09/20 18:05 Antiembolic Devices [RC] PER UNIT ROUTINE 07/09/20 18:15 Nicotine [Habitrol] 21 mg TRDERM DAILY 07/09/20 18:54 Consult to Physician [CONS] Routine 07/09/20 18:55 Notify Provider Consults [RC] ASDIRECTED 07/09/20 19:00 Sodium Chloride 0.9% [Normal Saline] 1,000 ml IV ASDIRECTED 07/09/20 22:00 Bacitracin [Bacitracin Oint] See Dose Instructions TOP TID Piperacillin/Tazobactam [Piperacil-Tazobact] 3.375 gm Sodium Chloride 0.9% [Normal Saline] 50 ml IV Q6H 07/10/20 00:01 metroNIDAZOLE/Normal Saline [Flagyl in NS 500 MG/100 ML] 500 mg Premix Bag 1 bag IV TID 07/10/20 09:00 Pantoprazole [ProTONIX IV] 40 mg Sodium Chloride 0.9% [Normal Saline] 10 ml IV DAILY 07/10/20 12:00 POTASSIUM,K [CHEM] Routine 07/11/20 05:11 CBC WITH AUTO DIFF [HEME] AM COMPREHENSIVE METABOLIC PN,CMP [CHEM] AM 07/12/20 05:11 CBC WITH AUTO DIFF [HEME] AM COMPREHENSIVE METABOLIC PN,CMP [CHEM] AM - Plan Plan:: 1. Proctitis: Hemoccult positive in setting of proctitis hemoglobin currently stable. Continues Zosyn plus Flagyl. Hemoccult positive. Recheck hemoglobin in AM ; 10.0 this AM Pantoprazole 40 daily Per surgery :will go ahead w. colonoscopy most likely on ; regular diet for now; prep tomorrow 2. Leukocytosis:Resolved Continue Zosyn/Flagyl. 3. Hypokalemia: 3.0 this afternoon; replete and recheck in AM ; continue telemetry 4. Hyponatremia: resolved 5. IMELDA: improving post-fluid resuscitation; recheck in AM 6. Past medical history of tobacco abuse: Nicotine patch ordered . <Ovidio Esquivel - Last Filed: 07/17/20 17:22> - General Info Subjective Update: I have seen and evaluated the patient. I have discussed findings and treatment plan with resident. I agree with the assessment and plan in the following note. - Patient Data Vitals - Most Recent: Last Vital Signs Temp 36.8 C 07/11/20 04:00 Pulse 78 07/11/20 04:00 Resp 20 07/11/20 04:00 BP 151/76 H 07/11/20 04:00 Pulse Ox 98 07/11/20 04:00 Orthostatic Blood Pressure [ 110/75 Sitting] Orthostatic Blood Pressure [ 148/104 Supine] Med Orders - Current: Current Medications Discontinued Medications Bacitracin (Bacitracin Oint 28.35 Gm Tube) 0 gm TOP TID [facility]G Last Admin: 07/11/20 05:42 Dose: 1 applic Documented by: [place] Butter/Phenylephrine ([place] Butter/Phenylephrine Rectal Supp) 1 each RECTAL ONETIME ONE Stop: 07/10/20 19:48 Last Admin: 07/10/20 20:43 Dose: 1 each Documented by: Famotidine (Famotidine 20 Mg Tab) 20 mg PO ONETIME ONE Stop: 07/10/20 08:31 Last Admin: 07/10/20 08:47 Dose: 20 mg Documented by: Pantoprazole Sodium 40 mg/ (Sodium Chloride) 10 mls @ 300 mls/hr IV NOW ONE Stop: 07/09/20 13:21 Last Admin: 07/09/20 13:32 Dose: 300 mls/hr Documented by: Sodium Chloride (Normal Saline) 1,000 mls @ 1,000 mls/hr IV .Bolus ONE Stop: 07/09/20 14:48 Last Infusion: 07/09/20 14:11 Dose: 0 mls/hr Documented by: Potassium Chloride/Sodium Chloride (Normal Saline With 40 Meq Kcl) 1,000 mls @ 250 mls/hr IV ASDIRECTED [facility] Last Admin: 07/09/20 14:18 Dose: 250 mls/hr Documented by: Piperacillin Sod/Tazobactam (Sod 4.5 gm/ Sodium Chloride) 100 mls @ 100 mls/hr IV ONETIME ONE Stop: 07/09/20 17:09 Last Admin: 07/09/20 17:05 Dose: 100 mls/hr Documented by: Metronidazole 500 mg/ Premix 100 mls @ 100 mls/hr IV ONETIME ONE Stop: 07/09/20 17:10 Last Admin: 07/09/20 17:03 Dose: 100 mls/hr Documented by: Piperacillin Sod/Tazobactam (Sod 3.375 gm/ Sodium Chloride) 50 mls @ 100 mls/hr IV Q6H [facility] Last Admin: 07/11/20 03:46 Dose: 100 mls/hr Documented by: Potassium Chloride 40 meq/ (Premix) 100 mls @ 25 mls/hr IV ONETIME ONE Stop: 07/09/20 22:12 Last Admin: 07/09/20 20:32 Dose: Not Given Documented by: Pantoprazole Sodium 40 mg/ (Sodium Chloride) 10 mls @ 300 mls/hr IV DAILY [facility] Last Admin: 07/10/20 08:47 Dose: 300 mls/hr Documented by: Metronidazole 500 mg/ Premix 100 mls @ 100 mls/hr IV TID [facility] Last Admin: 07/11/20 05:16 Dose: 100 mls/hr Documented by: Sodium Chloride (Normal Saline) 1,000 mls @ 125 mls/hr IV ASDIRECTED [facility] Last Admin: 07/10/20 22:14 Dose: 125 mls/hr Documented by: Potassium Chloride/Sodium Chloride (Normal Saline With 40 Meq Kcl) 1,000 mls @ 250 mls/hr IV ONETIME ONE Stop: 07/10/20 11:14 Last Admin: 07/10/20 07:31 Dose: 250 mls/hr Documented by: Magnesium Sulfate 2 gm/ Premix 50 mls @ 12.5 mls/hr IV ONETIME ONE Stop: 07/10/20 17:51 Last Admin: 07/10/20 14:25 Dose: 12.5 mls/hr Documented by: Iopamidol (Iopamidol 755 Mg/Ml 500 Ml Multipack Bottle) 75 ml IVPUSH ONETIME STA Stop: 07/09/20 15:14 Last Admin: 07/09/20 15:14 Dose: 75 ml Documented by: Labetalol HCl (Labetalol 100 Mg/20 Ml Mdv) 20 mg IVPUSH ONETIME PRN; Protocol PRN Reason: Hypertension Last Admin: 07/11/20 00:09 Dose: 20 mg Documented by: Lorazepam (Lorazepam 2 Mg/Ml Sdv) 0.5 mg IVPUSH ONETIME ONE Stop: 07/11/20 00:01 Last Admin: 07/11/20 00:10 Dose: 0.5 mg Documented by: Nicotine (Nicotine 21 Mg/24 Hr Patch) 21 mg TRDERM DAILY HUNG Last Admin: 07/10/20 08:51 Dose: 21 mg Documented by: Ondansetron HCl (Ondansetron 4 Mg Tab.Dis) 4 mg PO Q4H PRN PRN Reason: nausea, able to take PO Potassium Chloride (Potassium Chloride 20 Meq Tab.Er) 40 meq PO ONETIME ONE Stop: 07/09/20 18:14 Last Admin: 07/09/20 20:06 Dose: 40 meq Documented by: Potassium Chloride (Potassium Chloride 20 Meq Tab.Er) 40 meq PO ONETIME ONE Stop: 07/10/20 06:43 Last Admin: 07/10/20 06:59 Dose: 40 meq Documented by: Potassium Chloride (Potassium Chloride 20 Meq Tab.Er) 40 meq PO ONETIME ONE Stop: 07/10/20 12:36 Last Admin: 07/10/20 12:38 Dose: 40 meq Documented by: Sodium Chloride (Sodium Chloride 0.9% 10 Ml Syringe) 10 ml FLUSH ASDIRECTED PRN PRN Reason: Keep Vein Open Last Admin: 07/09/20 13:33 Dose: 10 ml Documented by: Sodium Chloride (Sodium Chloride 0.9% 2.5 Ml Syringe) 2.5 ml FLUSH ASDIRECTED PRN PRN Reason: Keep Vein Open Last Admin: 07/09/20 13:33 Dose: 2.5 ml Documented by: - Patient Data Result Diagrams: 07/11/20 05:32 07/11/20 05:32 - Plan Plan:: I have seen and evaluated the patient. I have discussed findings and treatment plan with resident. I agree with the assessment and plan in the following note. .
[2020-07-10] MEDS: Sodium Chloride 0.9% 1,000 ML IV SCH ×2 (12:39→22:14)
[2020-07-10] MEDS ORDERED: Magnesium Sulfate/Water 2 GM in Premix Bag 1 BAG IV ONE (13:52)
--- NOTE | 2020-07-10 15:46 | PCM.CONSN ---
- General Info Date of Service: 07/10/20 Subjective Update: Patient feeling better. Feels like his diarrhea is slowing down. Nurse reports that patient still having dark stools. Resuscitated overnight with fluids. Hgb dropped to 10. Potassium low this am at 2.3 and aggressively replaced. Now 3 this afternoon. Hypertensive. Heart rate stable. C Diff test negative. Denies abdominal pain. Denies nausea, abdominal pain, heartburn. - Review of Systems General: Reports: No Symptoms HEENT: Reports: No Symptoms Pulmonary: Reports: No Symptoms Cardiovascular: Reports: No Symptoms Gastrointestinal: Reports: No Symptoms - Patient Data Vitals - Most Recent: Last Vital Signs Temp 36.2 C 07/10/20 12:05 Pulse 67 07/10/20 12:44 Resp 18 07/10/20 12:44 BP 167/84 H 07/10/20 12:44 Pulse Ox 97 07/10/20 12:44 Orthostatic Blood Pressure [ 110/75 Sitting] Orthostatic Blood Pressure [ 148/104 Supine] Weight - Most Recent: 69.4 kg I&O - Last 24 Hours: Intake & Output 07/10/20 07/10/20 07/10/20 06:59 14:59 22:59 Intake Total 820 1000 Output Total 1150 Balance -330 1000 Lab Results Last 24 Hours: Laboratory Results - last 24 hr 07/09/20 07/09/20 07/09/20 Range/Units 13:26 16:28 20:10 WBC (4.0-11.0) K/uL RBC (4.50-5.90) M/uL Hgb 11.2 L (13.0-17.0) g/dL Hct (38.0-50.0) % MCV (80.0-98.0) fL MCH (27.0-32.0) pg MCHC (31.0-37.0) g/dL RDW Std Deviation (28.0-62.0) fl RDW Coeff of Teo (11.0-15.0) % Plt Count (150-400) K/uL MPV (7.40-12.00) fL Neut % (Auto) (48.0-80.0) % Lymph % (Auto) (16.0-40.0) % [place] % (Auto) (0.0-15.0) % Eos % (Auto) (0.0-7.0) % Baso % (Auto) (0.0-1.5) % Neut # (Auto) (1.4-5.7) K/uL Lymph # (Auto) (0.6-2.4) K/uL [place] # (Auto) (0.0-0.8) K/uL Eos # (Auto) (0.0-0.7) K/uL Baso # (Auto) (0.0-0.1) K/uL Nucleated RBC % /100WBC Nucleated RBCs # K/uL Sodium (136-148) mmol/L Potassium (3.5-5.1) mmol/L Chloride (98-107) mmol/L Carbon Dioxide (21.0-32.0) mmol/L BUN (7.0-18.0) mg/dL Creatinine (0.8-1.3) mg/dL Est Cr Clr Drug Dosing mL/min Estimated GFR (MDRD) ml/min Glucose (74-106) mg/dL Calcium (8.5-10.1) mg/dL Phosphorus 3.7 (2.6-4.7) mg/dL Magnesium 1.8 (1.8-2.4) mg/dL Total Bilirubin (0.2-1.0) mg/dL AST (15-37) IU/L ALT (14-63) IU/L Alkaline Phosphatase (46-116) U/L Total Protein (6.4-8.2) g/dL Albumin (3.4-5.0) g/dL Globulin (2.6-4.0) g/dL Albumin/Globulin Ratio (0.9-1.6) Urine Opiates Screen (NEGATIVE) Ur Oxycodone Screen (NEGATIVE) Urine Methadone Screen (NEGATIVE) Ur Barbiturates Screen (NEGATIVE) Ur Phencyclidine Scrn (NEGATIVE) Ur Amphetamine Screen (NEGATIVE) U Methamphetamines Scrn (NEGATIVE) U Benzodiazepines Scrn (NEGATIVE) U Cocaine Metab Screen (NEGATIVE) U Marijuana (THC) Screen (NEGATIVE) SARS-CoV-2 RNA (ARI) NEGATIVE (NEGATIVE) 07/09/20 07/10/20 07/10/20 Range/Units 21:00 04:58 04:58 WBC 8.68 (4.0-11.0) K/uL RBC 3.21 L (4.50-5.90) M/uL Hgb 10.0 L (13.0-17.0) g/dL Hct 29.6 L (38.0-50.0) % MCV 92.2 (80.0-98.0) fL MCH 31.2 (27.0-32.0) pg MCHC 33.8 (31.0-37.0) g/dL RDW Std Deviation 54.5 (28.0-62.0) fl RDW Coeff of Teo 16 H (11.0-15.0) % Plt Count 269 (150-400) K/uL MPV 10.50 (7.40-12.00) fL Neut % (Auto) 58.2 (48.0-80.0) % Lymph % (Auto) 33.4 (16.0-40.0) % [place] % (Auto) 7.1 (0.0-15.0) % Eos % (Auto) 1.0 (0.0-7.0) % Baso % (Auto) 0.3 (0.0-1.5) % Neut # (Auto) 5.0 (1.4-5.7) K/uL Lymph # (Auto) 2.9 H (0.6-2.4) K/uL [place] # (Auto) 0.6 (0.0-0.8) K/uL Eos # (Auto) 0.1 (0.0-0.7) K/uL Baso # (Auto) 0.0 (0.0-0.1) K/uL Nucleated RBC % 0.0 /100WBC Nucleated RBCs # 0 K/uL Sodium 136 (136-148) mmol/L Potassium 2.3 L* (3.5-5.1) mmol/L Chloride 99 (98-107) mmol/L Carbon Dioxide 31.3 (21.0-32.0) mmol/L BUN 16 (7.0-18.0) mg/dL Creatinine 1.4 H (0.8-1.3) mg/dL Est Cr Clr Drug Dosing 50.26 mL/min Estimated GFR (MDRD) 50.5 ml/min Glucose 81 (74-106) mg/dL Calcium 7.4 L (8.5-10.1) mg/dL Phosphorus (2.6-4.7) mg/dL Magnesium (1.8-2.4) mg/dL Total Bilirubin 0.8 (0.2-1.0) mg/dL AST 29 (15-37) IU/L ALT 23 (14-63) IU/L Alkaline Phosphatase 108 (46-116) U/L Total Protein 5.5 L (6.4-8.2) g/dL Albumin 2.5 L (3.4-5.0) g/dL Globulin 3.0 (2.6-4.0) g/dL Albumin/Globulin Ratio 0.8 L (0.9-1.6) Urine Opiates Screen NEGATIVE (NEGATIVE) Ur Oxycodone Screen NEGATIVE (NEGATIVE) Urine Methadone Screen NEGATIVE (NEGATIVE) Ur Barbiturates Screen NEGATIVE (NEGATIVE) Ur Phencyclidine Scrn NEGATIVE (NEGATIVE) Ur Amphetamine Screen NEGATIVE (NEGATIVE) U Methamphetamines Scrn NEGATIVE (NEGATIVE) U Benzodiazepines Scrn NEGATIVE (NEGATIVE) U Cocaine Metab Screen NEGATIVE (NEGATIVE) U Marijuana (THC) Screen NEGATIVE (NEGATIVE) SARS-CoV-2 RNA (ARI) (NEGATIVE) 07/10/20 07/10/20 Range/Units 12:01 12:01 WBC (4.0-11.0) K/uL RBC (4.50-5.90) M/uL Hgb (13.0-17.0) g/dL Hct (38.0-50.0) % MCV (80.0-98.0) fL MCH (27.0-32.0) pg MCHC (31.0-37.0) g/dL RDW Std Deviation (28.0-62.0) fl RDW Coeff of Teo (11.0-15.0) % Plt Count (150-400) K/uL MPV (7.40-12.00) fL Neut % (Auto) (48.0-80.0) % Lymph % (Auto) (16.0-40.0) % [place] % (Auto) (0.0-15.0) % Eos % (Auto) (0.0-7.0) % Baso % (Auto) (0.0-1.5) % Neut # (Auto) (1.4-5.7) K/uL Lymph # (Auto) (0.6-2.4) K/uL [place] # (Auto) (0.0-0.8) K/uL Eos # (Auto) (0.0-0.7) K/uL Baso # (Auto) (0.0-0.1) K/uL Nucleated RBC % /100WBC Nucleated RBCs # K/uL Sodium (136-148) mmol/L Potassium 3.0 L (3.5-5.1) mmol/L Chloride (98-107) mmol/L Carbon Dioxide (21.0-32.0) mmol/L BUN (7.0-18.0) mg/dL Creatinine (0.8-1.3) mg/dL Est Cr Clr Drug Dosing mL/min Estimated GFR (MDRD) ml/min Glucose (74-106) mg/dL Calcium (8.5-10.1) mg/dL Phosphorus (2.6-4.7) mg/dL Magnesium 1.8 (1.8-2.4) mg/dL Total Bilirubin (0.2-1.0) mg/dL AST (15-37) IU/L ALT (14-63) IU/L Alkaline Phosphatase (46-116) U/L Total Protein (6.4-8.2) g/dL Albumin (3.4-5.0) g/dL Globulin (2.6-4.0) g/dL Albumin/Globulin Ratio (0.9-1.6) Urine Opiates Screen (NEGATIVE) Ur Oxycodone Screen (NEGATIVE) Urine Methadone Screen (NEGATIVE) Ur Barbiturates Screen (NEGATIVE) Ur Phencyclidine Scrn (NEGATIVE) Ur Amphetamine Screen (NEGATIVE) U Methamphetamines Scrn (NEGATIVE) U Benzodiazepines Scrn (NEGATIVE) U Cocaine Metab Screen (NEGATIVE) U Marijuana (THC) Screen (NEGATIVE) SARS-CoV-2 RNA (ARI) (NEGATIVE) [place] Results Last 24 Hours: Microbiology 07/09/20 10:00 C. difficile Antigen & Toxins A,B - Final Stool / Feces Med Orders - Current: Current Medications Bacitracin (Bacitracin Oint 28.35 Gm Tube) 0 gm TOP TID [facility] Last Admin: 07/10/20 14:29 Dose: 1 applic Documented by: Piperacillin Sod/Tazobactam (Sod 3.375 gm/ Sodium Chloride) 50 mls @ 100 mls/hr IV Q6H [facility] Last Admin: 07/10/20 10:14 Dose: 100 mls/hr Documented by: Pantoprazole Sodium 40 mg/ (Sodium Chloride) 10 mls @ 300 mls/hr IV DAILY [facility] Last Admin: 07/10/20 08:47 Dose: 300 mls/hr Documented by: Metronidazole 500 mg/ Premix 100 mls @ 100 mls/hr IV TID [facility] Last Admin: 07/10/20 14:20 Dose: 100 mls/hr Documented by: Sodium Chloride (Normal Saline) 1,000 mls @ 125 mls/hr IV ASDIRECTED [facility] Last Admin: 07/10/20 12:39 Dose: 125 mls/hr Documented by: Magnesium Sulfate 2 gm/ Premix 50 mls @ 12.5 mls/hr IV ONETIME ONE Stop: 07/10/20 17:51 Last Admin: 07/10/20 14:25 Dose: 12.5 mls/hr Documented by: Nicotine (Nicotine 21 Mg/24 Hr Patch) 21 mg TRDERM DAILY [facility] Last Admin: 07/10/20 08:51 Dose: 21 mg Documented by: Ondansetron HCl (Ondansetron 4 Mg Tab.Dis) 4 mg PO Q4H PRN PRN Reason: nausea, able to take PO Sodium Chloride (Sodium Chloride 0.9% 10 Ml Syringe) 10 ml FLUSH ASDIRECTED PRN PRN Reason: Keep Vein Open Last Admin: 07/09/20 13:33 Dose: 10 ml Documented by: Sodium Chloride (Sodium Chloride 0.9% 2.5 Ml Syringe) 2.5 ml FLUSH ASDIRECTED PRN PRN Reason: Keep Vein Open Last Admin: 07/09/20 13:33 Dose: 2.5 ml Documented by: Discontinued Medications Famotidine (Famotidine 20 Mg Tab) 20 mg PO ONETIME ONE Stop: 07/10/20 08:31 Last Admin: 07/10/20 08:47 Dose: 20 mg Documented by: Pantoprazole Sodium 40 mg/ (Sodium Chloride) 10 mls @ 300 mls/hr IV NOW ONE Stop: 07/09/20 13:21 Last Admin: 07/09/20 13:32 Dose: 300 mls/hr Documented by: Sodium Chloride (Normal Saline) 1,000 mls @ 1,000 mls/hr IV .Bolus ONE Stop: 07/09/20 14:48 Last Infusion: 07/09/20 14:11 Dose: 0 mls/hr Documented by: Potassium Chloride/Sodium Chloride (Normal Saline With 40 Meq Kcl) 1,000 mls @ 250 mls/hr IV ASDIRECTED [facility] Last Admin: 07/09/20 14:18 Dose: 250 mls/hr Documented by: Piperacillin Sod/Tazobactam (Sod 4.5 gm/ Sodium Chloride) 100 mls @ 100 mls/hr IV ONETIME ONE Stop: 07/09/20 17:09 Last Admin: 07/09/20 17:05 Dose: 100 mls/hr Documented by: Metronidazole 500 mg/ Premix 100 mls @ 100 mls/hr IV ONETIME ONE Stop: 07/09/20 17:10 Last Admin: 07/09/20 17:03 Dose: 100 mls/hr Documented by: Potassium Chloride 40 meq/ (Premix) 100 mls @ 25 mls/hr IV ONETIME ONE Stop: 07/09/20 22:12 Last Admin: 07/09/20 20:32 Dose: Not Given Documented by: Potassium Chloride/Sodium Chloride (Normal Saline With 40 Meq Kcl) 1,000 mls @ 250 mls/hr IV ONETIME ONE Stop: 07/10/20 11:14 Last Admin: 07/10/20 07:31 Dose: 250 mls/hr Documented by: Iopamidol (Iopamidol 755 Mg/Ml 500 Ml Multipack Bottle) 75 ml IVPUSH ONETIME STA Stop: 07/09/20 15:14 Last Admin: 07/09/20 15:14 Dose: 75 ml Documented by: Potassium Chloride (Potassium Chloride 20 Meq Tab.Er) 40 meq PO ONETIME ONE Stop: 07/09/20 18:14 Last Admin: 07/09/20 20:06 Dose: 40 meq Documented by: Potassium Chloride (Potassium Chloride 20 Meq Tab.Er) 40 meq PO ONETIME ONE Stop: 07/10/20 06:43 Last Admin: 07/10/20 06:59 Dose: 40 meq Documented by: Potassium Chloride (Potassium Chloride 20 Meq Tab.Er) 40 meq PO ONETIME ONE Stop: 07/10/20 12:36 Last Admin: 07/10/20 12:38 Dose: 40 meq Documented by: - Exam Quality Assessment: Supplemental Oxygen General: Alert, Oriented, Cooperative HEENT: Pupils Equal, Pupils Reactive Lungs: Clear to Auscultation, Normal Respiratory Effort Cardiovascular: Regular Rate, Regular Rhythm GI/Abdominal Exam: Soft, Non-Tender, No Distention, No Mass Back Exam: Normal Inspection, Full Range of Motion Extremities: Normal Inspection, Normal Range of Motion, Non-Tender Skin: Warm, Dry, Intact Sepsis Event Note - Evaluation Sepsis Screening Result: No Definite Risk - Focused Exam Vital Signs: Vital Signs Temp Pulse Resp BP Pulse Ox 07/10/20 12:44 67 18 167/84 H 97 07/10/20 12:05 36.2 C 68 16 172/85 H 96 07/10/20 08:00 36.6 C 66 18 154/80 H 93 L 07/10/20 04:00 36.7 C 65 18 148/80 H 96 Consult PN Assessment/Plan Problem List Initiated/Reviewed/Updated: Yes Plan: Patient and I discussed the need for a diagnostic colonoscopy. We discussed the procedure, expected perioperative course and the risks including bleeding, infection, or damage to surrounding structures. Should he have polyps I will remove these. I will likely be performing biopsies. Given his ongoing electrolyte abnormalities, we will hold off on a prep today. Will start tomorrow. He is ok to have a regular diet today. The patient verbalized understanding and wishes to proceed. Clear liquid diet after midnight. Will place prep orders in am.
[2020-07-10] MEDS ORDERED: Cocoa Butter/Phenylephrine Rectal Supp RECTAL ONE (19:47)
[2020-07-10] MEDS ORDERED: Labetalol 100 MG/20 ML MDV IVPUSH PRN (19:47)
[2020-07-11] MEDS ORDERED: LORazepam 2 MG/ML SDV IVPUSH ONE
--- NOTE | 2020-07-11 01:37 | PCM.CONSN ---
- Patient Data Vitals - Most Recent: Last Vital Signs Temp 36.7 C 07/11/20 00:00 Pulse 64 07/11/20 00:00 Resp 19 07/11/20 00:00 BP 151/68 H 07/11/20 00:50 Pulse Ox 97 07/11/20 00:00 Orthostatic Blood Pressure [ 110/75 Sitting] Orthostatic Blood Pressure [ 148/104 Supine] Weight - Most Recent: 69.4 kg I&O - Last 24 Hours: Intake & Output 07/10/20 07/10/20 07/11/20 14:59 22:59 06:59 Intake Total 1000 1659 Output Total 1080 Balance 1000 579 Lab Results Last 24 Hours: Laboratory Results - last 24 hr 07/10/20 07/10/20 07/10/20 Range/Units 04:58 04:58 12:01 WBC 8.68 (4.0-11.0) K/uL RBC 3.21 L (4.50-5.90) M/uL Hgb 10.0 L (13.0-17.0) g/dL Hct 29.6 L (38.0-50.0) % MCV 92.2 (80.0-98.0) fL MCH 31.2 (27.0-32.0) pg MCHC 33.8 (31.0-37.0) g/dL RDW Std Deviation 54.5 (28.0-62.0) fl RDW Coeff of Eto 16 H (11.0-15.0) % Plt Count 269 (150-400) K/uL MPV 10.50 (7.40-12.00) fL Neut % (Auto) 58.2 (48.0-80.0) % Lymph % (Auto) 33.4 (16.0-40.0) % [place] % (Auto) 7.1 (0.0-15.0) % Eos % (Auto) 1.0 (0.0-7.0) % Baso % (Auto) 0.3 (0.0-1.5) % Neut # (Auto) 5.0 (1.4-5.7) K/uL Lymph # (Auto) 2.9 H (0.6-2.4) K/uL Bee # (Auto) 0.6 (0.0-0.8) K/uL Eos # (Auto) 0.1 (0.0-0.7) K/uL Baso # (Auto) 0.0 (0.0-0.1) K/uL Nucleated RBC % 0.0 /100WBC Nucleated RBCs # 0 K/uL Sodium 136 (136-148) mmol/L Potassium 2.3 L* 3.0 L (3.5-5.1) mmol/L Chloride 99 (98-107) mmol/L Carbon Dioxide 31.3 (21.0-32.0) mmol/L BUN 16 (7.0-18.0) mg/dL Creatinine 1.4 H (0.8-1.3) mg/dL Est Cr Clr Drug Dosing 50.26 mL/min Estimated GFR (MDRD) 50.5 ml/min Glucose 81 (74-106) mg/dL Calcium 7.4 L (8.5-10.1) mg/dL Magnesium (1.8-2.4) mg/dL Total Bilirubin 0.8 (0.2-1.0) mg/dL AST 29 (15-37) IU/L ALT 23 (14-63) IU/L Alkaline Phosphatase 108 (46-116) U/L Total Protein 5.5 L (6.4-8.2) g/dL Albumin 2.5 L (3.4-5.0) g/dL Globulin 3.0 (2.6-4.0) g/dL Albumin/Globulin Ratio 0.8 L (0.9-1.6) 05/25/21 Range/Units 12:01 WBC (4.0-11.0) K/uL RBC (4.50-5.90) M/uL Hgb (13.0-17.0) g/dL Hct (38.0-50.0) % MCV (80.0-98.0) fL MCH (27.0-32.0) pg MCHC (31.0-37.0) g/dL RDW Std Deviation (28.0-62.0) fl RDW Coeff of Teo (11.0-15.0) % Plt Count (150-400) K/uL MPV (7.40-12.00) fL Neut % (Auto) (48.0-80.0) % Lymph % (Auto) (16.0-40.0) % Bee % (Auto) (0.0-15.0) % Eos % (Auto) (0.0-7.0) % Baso % (Auto) (0.0-1.5) % Neut # (Auto) (1.4-5.7) K/uL Lymph # (Auto) (0.6-2.4) K/uL Bee # (Auto) (0.0-0.8) K/uL Eos # (Auto) (0.0-0.7) K/uL Baso # (Auto) (0.0-0.1) K/uL Nucleated RBC % /100WBC Nucleated RBCs # K/uL Sodium (136-148) mmol/L Potassium (3.5-5.1) mmol/L Chloride (98-107) mmol/L Carbon Dioxide (21.0-32.0) mmol/L BUN (7.0-18.0) mg/dL Creatinine (0.8-1.3) mg/dL Est Cr Clr Drug Dosing mL/min Estimated GFR (MDRD) ml/min Glucose (74-106) mg/dL Calcium (8.5-10.1) mg/dL Magnesium 1.8 (1.8-2.4) mg/dL Total Bilirubin (0.2-1.0) mg/dL AST (15-37) IU/L ALT (14-63) IU/L Alkaline Phosphatase (46-116) U/L Total Protein (6.4-8.2) g/dL Albumin (3.4-5.0) g/dL Globulin (2.6-4.0) g/dL Albumin/Globulin Ratio (0.9-1.6) [place] Results Last 24 Hours: Microbiology 07/09/20 16:37 Aerobic Blood Culture - Preliminary Blood - Venous - Lab Draw NO GROWTH AFTER 1 DAY Anaerobic Blood Culture - Preliminary NO GROWTH AFTER 1 DAY 07/09/20 16:31 Aerobic Blood Culture - Preliminary Blood - Venous NO GROWTH AFTER 1 DAY Anaerobic Blood Culture - Preliminary NO GROWTH AFTER 1 DAY 07/09/20 10:00 C. difficile Antigen & Toxins A,B - Final Stool / Feces Med Orders - Current: Current Medications Bacitracin (Bacitracin Oint 28.35 Gm Tube) 0 gm TOP TID [facility] Last Admin: 07/10/20 21:08 Dose: 1 applic Documented by: Piperacillin Sod/Tazobactam (Sod 3.375 gm/ Sodium Chloride) 50 mls @ 100 mls/hr IV Q6H [facility] Last Admin: 07/10/20 21:06 Dose: 100 mls/hr Documented by: Pantoprazole Sodium 40 mg/ (Sodium Chloride) 10 mls @ 300 mls/hr IV DAILY [facility] Last Admin: 07/10/20 08:47 Dose: 300 mls/hr Documented by: Metronidazole 500 mg/ Premix 100 mls @ 100 mls/hr IV TID [facility] Last Admin: 07/10/20 21:59 Dose: 100 mls/hr Documented by: Sodium Chloride (Normal Saline) 1,000 mls @ 125 mls/hr IV ASDIRECTED [facility] Last Admin: 07/10/20 22:14 Dose: 125 mls/hr Documented by: Labetalol HCl (Labetalol 100 Mg/20 Ml Mdv) 20 mg IVPUSH ONETIME PRN; Protocol PRN Reason: Hypertension Last Admin: 07/11/20 00:09 Dose: 20 mg Documented by: Nicotine (Nicotine 21 Mg/24 Hr Patch) 21 mg TRDERM DAILY [facility] Last Admin: 07/10/20 08:51 Dose: 21 mg Documented by: Ondansetron HCl (Ondansetron 4 Mg Tab.Dis) 4 mg PO Q4H PRN PRN Reason: nausea, able to take PO Sodium Chloride (Sodium Chloride 0.9% 10 Ml Syringe) 10 ml FLUSH ASDIRECTED PRN PRN Reason: Keep Vein Open Last Admin: 07/09/20 13:33 Dose: 10 ml Documented by: Sodium Chloride (Sodium Chloride 0.9% 2.5 Ml Syringe) 2.5 ml FLUSH ASDIRECTED PRN PRN Reason: Keep Vein Open Last Admin: 07/09/20 13:33 Dose: 2.5 ml Documented by: Discontinued Medications [place] Butter/Phenylephrine ([place] Butter/Phenylephrine Rectal Supp) 1 each RECTAL ONETIME ONE Stop: 07/10/20 19:48 Last Admin: 07/10/20 20:43 Dose: 1 each Documented by: Famotidine (Famotidine 20 Mg Tab) 20 mg PO ONETIME ONE Stop: 07/10/20 08:31 Last Admin: 07/10/20 08:47 Dose: 20 mg Documented by: Pantoprazole Sodium 40 mg/ (Sodium Chloride) 10 mls @ 300 mls/hr IV NOW ONE Stop: 07/09/20 13:21 Last Admin: 07/09/20 13:32 Dose: 300 mls/hr Documented by: Sodium Chloride (Normal Saline) 1,000 mls @ 1,000 mls/hr IV .Bolus ONE Stop: 07/09/20 14:48 Last Infusion: 07/09/20 14:11 Dose: 0 mls/hr Documented by: Potassium Chloride/Sodium Chloride (Normal Saline With 40 Meq Kcl) 1,000 mls @ 250 mls/hr IV ASDIRECTED [facility] Last Admin: 07/09/20 14:18 Dose: 250 mls/hr Documented by: Piperacillin Sod/Tazobactam (Sod 4.5 gm/ Sodium Chloride) 100 mls @ 100 mls/hr IV ONETIME ONE Stop: 07/09/20 17:09 Last Admin: 07/09/20 17:05 Dose: 100 mls/hr Documented by: Metronidazole 500 mg/ Premix 100 mls @ 100 mls/hr IV ONETIME ONE Stop: 07/09/20 17:10 Last Admin: 07/09/20 17:03 Dose: 100 mls/hr Documented by: Potassium Chloride 40 meq/ (Premix) 100 mls @ 25 mls/hr IV ONETIME ONE Stop: 07/09/20 22:12 Last Admin: 07/09/20 20:32 Dose: Not Given Documented by: Potassium Chloride/Sodium Chloride (Normal Saline With 40 Meq Kcl) 1,000 mls @ 250 mls/hr IV ONETIME ONE Stop: 07/10/20 11:14 Last Admin: 07/10/20 07:31 Dose: 250 mls/hr Documented by: Magnesium Sulfate 2 gm/ Premix 50 mls @ 12.5 mls/hr IV ONETIME ONE Stop: 07/10/20 17:51 Last Admin: 07/10/20 14:25 Dose: 12.5 mls/hr Documented by: Iopamidol (Iopamidol 755 Mg/Ml 500 Ml Multipack Bottle) 75 ml IVPUSH ONETIME STA Stop: 07/09/20 15:14 Last Admin: 07/09/20 15:14 Dose: 75 ml Documented by: Lorazepam (Lorazepam 2 Mg/Ml Sdv) 0.5 mg IVPUSH ONETIME ONE Stop: 07/11/20 00:01 Last Admin: 07/11/20 00:10 Dose: 0.5 mg Documented by: Potassium Chloride (Potassium Chloride 20 Meq Tab.Er) 40 meq PO ONETIME ONE Stop: 07/09/20 18:14 Last Admin: 07/09/20 20:06 Dose: 40 meq Documented by: Potassium Chloride (Potassium Chloride 20 Meq Tab.Er) 40 meq PO ONETIME ONE Stop: 07/10/20 06:43 Last Admin: 07/10/20 06:59 Dose: 40 meq Documented by: Potassium Chloride (Potassium Chloride 20 Meq Tab.Er) 40 meq PO ONETIME ONE Stop: 07/10/20 12:36 Last Admin: 07/10/20 12:38 Dose: 40 meq Documented by: Sepsis Event Note - Evaluation Sepsis Screening Result: No Definite Risk - Focused Exam Vital Signs: Vital Signs Temp Pulse Resp BP Pulse Ox Pulse Ox 07/11/20 00:50 151/68 H 07/11/20 00:00 36.7 C 64 19 185/94 H 97 07/10/20 20:00 36.8 C 86 18 174/90 H 98 95 07/10/20 16:58 170/85 H 07/10/20 16:26 36.3 C 84 18 97 Consult PN Assessment/Plan My Orders Last 24 Hours: My Active Orders 07/10/20 Dinner Regular Diet [DIET] Plan: Ok to start bowel prep: 1) Take two 5 mg dulcolax tablets at 10am. Follow with two 5mg dulcolax tablets at 12 pm. 2) Starting at 1pm, mix 119gm miralax with 32 oz of sports drink. Sports drink cannot be red or purple. Drink over the course of the next 4 hours. 3) Starting at 5pm, mix 119gm miralax with 32 oz of sports drink. Sports drink cannot be red or purple. Drink over the course of the next 4 hours. 4) Clear liquid diet throughout the day. Npo after midnight
[2020-07-11] MEDS: Piperacillin/Tazobactam 3.375 GM in Sodium Chloride 0.9% 50 ML IV SCH (03:46)
[2020-07-11] MEDS: metroNIDAZOLE/Normal Saline 500 MG in Premix Bag 1 BAG IV SCH (05:16)
[2020-07-11] MEDS: Bacitracin Oint 28.35 GM Tube TOP SCH (05:42)
[2020-07-11 06:04] LABS: CARBON DIOXIDE,CO2 30.7 mmol/L (21.0-32.0); POTASSIUM,K 2.6 mmol/L (3.5-5.1)
--- NOTE | 2020-07-11 08:44 | PCM.DCSUM1 ---
<Anant Rodríguez - Last Filed: 07/11/20 12:33> Discharge Summary - Hospital Course Free Text/Narrative:: 69-year-old male with past medical history of GERD presenting to ED via EMS after having been found with unsteady gait while at a gas station and endorsing feeling unsteady and on the verge of passing out. Endorsed to EMS and ED provider significance dark stools x6 days with 2-3 bowel movements daily accompanied with melena. Denies any upper GI bleed or any other overt source of bleeding. Mentions that his bleeding is most likely from his hemorrhoids as he does have a history of hemorrhoids. Patient recently has been driving for 3 days and pulled in from [place]. ED course: Hemoccult positive. Overt melena noted at rectum. Positive orthostatic vital signs will BP drop without reflux tachycardia. Vitals 180/94. Pulse rate 78. Afebrile 96.1 O2 sat 98% room air Abdomen pelvis CT: Wall thickening and inflammatory fat stranding about the rectum compatible with nonspecific proctitis Narrowing of proximal left renal artery by atheromatous plaque. 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 Small pericardial effusion WBC 15. Hemoglobin 12.5. Sodium 131 Hypokalemia 2.5. IMELDA 1.8. T bili 1.4 Alk phos 145. Hospital course: 69-year-old male with past medical history of GERD admitted to the general medical floor for proctitis, melena per rectum and ambulatory dysfunction secondary to mild dehydration in light of his melena. Patient was started on Zosyn plus Flagyl for proctitis and electrolytes were repleted as needed. General surgery was consulted and Dr. Qureshi recommended possible inpatient colonoscopy once electrolytes and hemoglobin was noted to be stable. Patient not require any blood transfusion and vitals otherwise were maintained throughout stay. Patient initially was on clear liquid diet but was advanced on July 10, 2020 to regular diet anticipation for following day bowel prep. Hypokalemia noted and patient was continuously repleted with 40 mEq IV/40 mg p.o.: July 11, 2020: Patient at bedside endorsed wanting to go home and leaving. Patient had left AMA with IV still in place. Patient was off hospital premises with IV. Display Department Manager had called law enforcement to help escort patient back to the ED for removal of his IV. Patient had his IV removed and AMA form was signed. Patient was in stable condition Morning prior to patient leaving AMA. Vital signs 151/68. Pulse rate 78. Afebrile 98.1. 98% room air Labs Hemoglobin 9.5 Potassium 2.6. 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 - Discharge Data Discharge Date: 07/11/20 Discharge Disposition: Against Medical Advice 07 Condition: Good - Referral to Home Health Primary Care Physician: PCP None - Discharge Diagnosis/Problem(s) (1) GI bleed SNOMED Code(s): 12275218 ICD Code: K92.2 - GASTROINTESTINAL HEMORRHAGE, UNSPECIFIED Status: Acute (2) Hypokalemia SNOMED Code(s): 98870867 ICD Code: E87.6 - HYPOKALEMIA Status: Acute (3) Hyponatremia SNOMED Code(s): 61828777 ICD Code: E87.1 - HYPO-OSMOLALITY AND HYPONATREMIA Status: Acute (4) Proctitis SNOMED Code(s): 3745197 ICD Code: K62.89 - OTHER SPECIFIED DISEASES OF ANUS AND RECTUM Status: Acute - Patient Summary/Data Consults: Consultations 07/09/20 18:03 PT Evaluation and Treatment [CONS] Routine 07/09/20 18:54 Consult to Physician [CONS] Routine - Discharge Plan *PRESCRIPTION DRUG MONITORING PROGRAM REVIEWED*: No *COPY OF PRESCRIPTION DRUG MONITORING REPORT IN PATIENT DEEP: No Home Medications: Home Meds Omeprazole 40 mg PO DAILY 07/09/20 [History] Gabapentin [Neurontin] 1,200 mg PO TID 07/11/20 [History] Metoprolol Tartrate 50 mg PO BID 07/11/20 [History] Forms: ED Department Discharge Referrals: PCP,None [Primary Care Provider] - - Discharge Summary/Plan Comment DC Time >30 min.: No - Patient Data Vitals - Most Recent: Last Vital Signs Temp 98.2 F 07/11/20 04:00 Pulse 78 07/11/20 04:00 Resp 20 07/11/20 04:00 BP 151/76 H 07/11/20 04:00 Pulse Ox 98 07/11/20 04:00 Orthostatic Blood Pressure [ 110/75 Sitting] Orthostatic Blood Pressure [ 148/104 Supine] Weight - Most Recent: 69.4 kg I&O - Last 24 hours: Intake & Output 07/10/20 07/11/20 07/11/20 22:59 06:59 14:59 Intake Total 1659 680 Output Total 1080 980 Balance 579 -300 Lab Results - Last 24 hrs: Laboratory Results - last 24 hr 07/10/20 07/10/20 07/11/20 Range/Units 12:01 12:01 05:32 WBC 8.59 (4.0-11.0) K/uL RBC 3.05 L (4.50-5.90) M/uL Hgb 9.5 L (13.0-17.0) g/dL Hct 28.4 L (38.0-50.0) % MCV 93.1 (80.0-98.0) fL MCH 31.1 (27.0-32.0) pg MCHC 33.5 (31.0-37.0) g/dL RDW Std Deviation 56.1 (28.0-62.0) fl RDW Coeff of Teo 16 H (11.0-15.0) % Plt Count 262 (150-400) K/uL MPV 10.10 (7.40-12.00) fL Neut % (Auto) 62.6 (48.0-80.0) % Lymph % (Auto) 30.8 (16.0-40.0) % [place] % (Auto) 4.5 (0.0-15.0) % Eos % (Auto) 1.6 (0.0-7.0) % Baso % (Auto) 0.5 (0.0-1.5) % Neut # (Auto) 5.4 (1.4-5.7) K/uL Lymph # (Auto) 2.7 H (0.6-2.4) K/uL [place] # (Auto) 0.4 (0.0-0.8) K/uL Eos # (Auto) 0.1 (0.0-0.7) K/uL Baso # (Auto) 0.0 (0.0-0.1) K/uL Nucleated RBC % 0.0 /100WBC Nucleated RBCs # 0 K/uL INR Sodium (136-148) mmol/L Potassium 3.0 L (3.5-5.1) mmol/L Chloride (98-107) mmol/L Carbon Dioxide (21.0-32.0) mmol/L BUN (7.0-18.0) mg/dL Creatinine (0.8-1.3) mg/dL Est Cr Clr Drug Dosing mL/min Estimated GFR (MDRD) ml/min Glucose (74-106) mg/dL Calcium (8.5-10.1) mg/dL Magnesium 1.8 (1.8-2.4) mg/dL Total Bilirubin (0.2-1.0) mg/dL AST (15-37) IU/L ALT (14-63) IU/L Alkaline Phosphatase (46-116) U/L Total Protein (6.4-8.2) g/dL Albumin (3.4-5.0) g/dL Globulin (2.6-4.0) g/dL Albumin/Globulin Ratio (0.9-1.6) Blood Type Antibody Screen 07/11/20 07/11/20 07/11/20 Range/Units 05:32 05:32 05:32 WBC (4.0-11.0) K/uL RBC (4.50-5.90) M/uL Hgb (13.0-17.0) g/dL Hct (38.0-50.0) % MCV (80.0-98.0) fL MCH (27.0-32.0) pg MCHC (31.0-37.0) g/dL RDW Std Deviation (28.0-62.0) fl RDW Coeff of Teo (11.0-15.0) % Plt Count (150-400) K/uL MPV (7.40-12.00) fL Neut % (Auto) (48.0-80.0) % Lymph % (Auto) (16.0-40.0) % [place] % (Auto) (0.0-15.0) % Eos % (Auto) (0.0-7.0) % Baso % (Auto) (0.0-1.5) % Neut # (Auto) (1.4-5.7) K/uL Lymph # (Auto) (0.6-2.4) K/uL [place] # (Auto) (0.0-0.8) K/uL Eos # (Auto) (0.0-0.7) K/uL Baso # (Auto) (0.0-0.1) K/uL Nucleated RBC % /100WBC Nucleated RBCs # K/uL INR 1.02 Sodium 137 (136-148) mmol/L Potassium 2.6 L (3.5-5.1) mmol/L Chloride 100 (98-107) mmol/L Carbon Dioxide 30.7 (21.0-32.0) mmol/L BUN 9 (7.0-18.0) mg/dL Creatinine 1.5 H (0.8-1.3) mg/dL Est Cr Clr Drug Dosing 46.91 mL/min Estimated GFR (MDRD) 46.7 ml/min Glucose 136 H (74-106) mg/dL Calcium 7.4 L (8.5-10.1) mg/dL Magnesium (1.8-2.4) mg/dL Total Bilirubin 0.7 (0.2-1.0) mg/dL AST 21 (15-37) IU/L ALT 20 (14-63) IU/L Alkaline Phosphatase 104 (46-116) U/L Total Protein 5.6 L (6.4-8.2) g/dL Albumin 2.7 L (3.4-5.0) g/dL Globulin 2.9 (2.6-4.0) g/dL Albumin/Globulin Ratio 0.9 (0.9-1.6) Blood Type O POSITIVE Antibody Screen NEGATIVE RIAN Results - Last 24 hrs: Microbiology 07/09/20 16:37 Aerobic Blood Culture - Preliminary Blood - Venous - Lab Draw NO GROWTH AFTER 1 DAY Anaerobic Blood Culture - Preliminary NO GROWTH AFTER 1 DAY 07/09/20 16:31 Aerobic Blood Culture - Preliminary Blood - Venous NO GROWTH AFTER 1 DAY Anaerobic Blood Culture - Preliminary NO GROWTH AFTER 1 DAY 07/09/20 10:00 C. difficile Antigen & Toxins A,B - Final Stool / Feces Med Orders - Current: Current Medications Bacitracin (Bacitracin Oint 28.35 Gm Tube) 0 gm TOP TID [facility] Last Admin: 07/11/20 05:42 Dose: 1 applic Documented by: Piperacillin Sod/Tazobactam (Sod 3.375 gm/ Sodium Chloride) 50 mls @ 100 mls/hr IV Q6H [facility] Last Admin: 07/11/20 03:46 Dose: 100 mls/hr Documented by: Pantoprazole Sodium 40 mg/ (Sodium Chloride) 10 mls @ 300 mls/hr IV DAILY [facility] Last Admin: 07/10/20 08:47 Dose: 300 mls/hr Documented by: Metronidazole 500 mg/ Premix 100 mls @ 100 mls/hr IV TID [facility] Last Admin: 07/11/20 05:16 Dose: 100 mls/hr Documented by: Sodium Chloride (Normal Saline) 1,000 mls @ 125 mls/hr IV ASDIRECTED [facility] Last Admin: 07/10/20 22:14 Dose: 125 mls/hr Documented by: Labetalol HCl (Labetalol 100 Mg/20 Ml Mdv) 20 mg IVPUSH ONETIME PRN; Protocol PRN Reason: Hypertension Last Admin: 07/11/20 00:09 Dose: 20 mg Documented by: Nicotine (Nicotine 21 Mg/24 Hr Patch) 21 mg TRDERM DAILY [facility] Last Admin: 07/10/20 08:51 Dose: 21 mg Documented by: Ondansetron HCl (Ondansetron 4 Mg Tab.Dis) 4 mg PO Q4H PRN PRN Reason: nausea, able to take PO Sodium Chloride (Sodium Chloride 0.9% 10 Ml Syringe) 10 ml FLUSH ASDIRECTED PRN PRN Reason: Keep Vein Open Last Admin: 07/09/20 13:33 Dose: 10 ml Documented by: Sodium Chloride (Sodium Chloride 0.9% 2.5 Ml Syringe) 2.5 ml FLUSH ASDIRECTED PRN PRN Reason: Keep Vein Open Last Admin: 07/09/20 13:33 Dose: 2.5 ml Documented by: Discontinued Medications [place] Butter/Phenylephrine ([place] Butter/Phenylephrine Rectal Supp) 1 each RECTAL ONETIME ONE Stop: 07/10/20 19:48 Last Admin: 07/10/20 20:43 Dose: 1 each Documented by: Famotidine (Famotidine 20 Mg Tab) 20 mg PO ONETIME ONE Stop: 07/10/20 08:31 Last Admin: 07/10/20 08:47 Dose: 20 mg Documented by: Pantoprazole Sodium 40 mg/ (Sodium Chloride) 10 mls @ 300 mls/hr IV NOW ONE Stop: 07/09/20 13:21 Last Admin: 07/09/20 13:32 Dose: 300 mls/hr Documented by: Sodium Chloride (Normal Saline) 1,000 mls @ 1,000 mls/hr IV .Bolus ONE Stop: 07/09/20 14:48 Last Infusion: 07/09/20 14:11 Dose: 0 mls/hr Documented by: Potassium Chloride/Sodium Chloride (Normal Saline With 40 Meq Kcl) 1,000 mls @ 250 mls/hr IV ASDIRECTED [facility] Last Admin: 07/09/20 14:18 Dose: 250 mls/hr Documented by: Piperacillin Sod/Tazobactam (Sod 4.5 gm/ Sodium Chloride) 100 mls @ 100 mls/hr IV ONETIME ONE Stop: 07/09/20 17:09 Last Admin: 07/09/20 17:05 Dose: 100 mls/hr Documented by: Metronidazole 500 mg/ Premix 100 mls @ 100 mls/hr IV ONETIME ONE Stop: 07/09/20 17:10 Last Admin: 07/09/20 17:03 Dose: 100 mls/hr Documented by: Potassium Chloride 40 meq/ (Premix) 100 mls @ 25 mls/hr IV ONETIME ONE Stop: 07/09/20 22:12 Last Admin: 07/09/20 20:32 Dose: Not Given Documented by: Potassium Chloride/Sodium Chloride (Normal Saline With 40 Meq Kcl) 1,000 mls @ 250 mls/hr IV ONETIME ONE Stop: 07/10/20 11:14 Last Admin: 07/10/20 07:31 Dose: 250 mls/hr Documented by: Magnesium Sulfate 2 gm/ Premix 50 mls @ 12.5 mls/hr IV ONETIME ONE Stop: 07/10/20 17:51 Last Admin: 07/10/20 14:25 Dose: 12.5 mls/hr Documented by: Iopamidol (Iopamidol 755 Mg/Ml 500 Ml Multipack Bottle) 75 ml IVPUSH ONETIME STA Stop: 07/09/20 15:14 Last Admin: 07/09/20 15:14 Dose: 75 ml Documented by: Lorazepam (Lorazepam 2 Mg/Ml Sdv) 0.5 mg IVPUSH ONETIME ONE Stop: 07/11/20 00:01 Last Admin: 07/11/20 00:10 Dose: 0.5 mg Documented by: Potassium Chloride (Potassium Chloride 20 Meq Tab.Er) 40 meq PO ONETIME ONE Stop: 07/09/20 18:14 Last Admin: 07/09/20 20:06 Dose: 40 meq Documented by: Potassium Chloride (Potassium Chloride 20 Meq Tab.Er) 40 meq PO ONETIME ONE Stop: 07/10/20 06:43 Last Admin: 07/10/20 06:59 Dose: 40 meq Documented by: Potassium Chloride (Potassium Chloride 20 Meq Tab.Er) 40 meq PO ONETIME ONE Stop: 07/10/20 12:36 Last Admin: 07/10/20 12:38 Dose: 40 meq Documented by: <Ovidio Esquivel - Last Filed: 07/17/20 17:02> Discharge Summary - Hospital Course Free Text/Narrative:: I have seen and evaluated the patient. I have discussed findings and treatment plan with resident. I agree with the assessment and plan in the following note. I have seen and evaluated the patient. I have discussed findings and treatment plan with resident. I agree with the assessment and plan in the following note. - Referral to Home Health Primary Care Physician: PCP None - Patient Summary/Data Consults: Consultations 07/09/20 18:03 PT Evaluation and Treatment [CONS] Routine 07/09/20 18:54 Consult to Physician [CONS] Routine - Patient Data Vitals - Most Recent: Last Vital Signs Temp 36.8 C 07/11/20 04:00 Pulse 78 07/11/20 04:00 Resp 20 07/11/20 04:00 BP 151/76 H 07/11/20 04:00 Pulse Ox 98 07/11/20 04:00 Orthostatic Blood Pressure [ 110/75 Sitting] Orthostatic Blood Pressure [ 148/104 Supine] Med Orders - Current: Current Medications Discontinued Medications Bacitracin (Bacitracin Oint 28.35 Gm Tube) 0 gm TOP TID [facility] Last Admin: 07/11/20 05:42 Dose: 1 applic Documented by: [place] Butter/Phenylephrine ([place] Butter/Phenylephrine Rectal Supp) 1 each RECTAL ONETIME ONE Stop: 07/10/20 19:48 Last Admin: 07/10/20 20:43 Dose: 1 each Documented by: Famotidine (Famotidine 20 Mg Tab) 20 mg PO ONETIME ONE Stop: 07/10/20 08:31 Last Admin: 07/10/20 08:47 Dose: 20 mg Documented by: Pantoprazole Sodium 40 mg/ (Sodium Chloride) 10 mls @ 300 mls/hr IV NOW ONE Stop: 07/09/20 13:21 Last Admin: 07/09/20 13:32 Dose: 300 mls/hr Documented by: Sodium Chloride (Normal Saline) 1,000 mls @ 1,000 mls/hr IV .Bolus ONE Stop: 07/09/20 14:48 Last Infusion: 07/09/20 14:11 Dose: 0 mls/hr Documented by: Potassium Chloride/Sodium Chloride (Normal Saline With 40 Meq Kcl) 1,000 mls @ 250 mls/hr IV ASDIRECTED [facility] Last Admin: 07/09/20 14:18 Dose: 250 mls/hr Documented by: Piperacillin Sod/Tazobactam (Sod 4.5 gm/ Sodium Chloride) 100 mls @ 100 mls/hr IV ONETIME ONE Stop: 07/09/20 17:09 Last Admin: 07/09/20 17:05 Dose: 100 mls/hr Documented by: Metronidazole 500 mg/ Premix 100 mls @ 100 mls/hr IV ONETIME ONE Stop: 07/09/20 17:10 Last Admin: 07/09/20 17:03 Dose: 100 mls/hr Documented by: Piperacillin Sod/Tazobactam (Sod 3.375 gm/ Sodium Chloride) 50 mls @ 100 mls/hr IV Q6H [facility] Last Admin: 07/11/20 03:46 Dose: 100 mls/hr Documented by: Potassium Chloride 40 meq/ (Premix) 100 mls @ 25 mls/hr IV ONETIME ONE Stop: 07/09/20 22:12 Last Admin: 07/09/20 20:32 Dose: Not Given Documented by: Pantoprazole Sodium 40 mg/ (Sodium Chloride) 10 mls @ 300 mls/hr IV DAILY [facility] Last Admin: 07/10/20 08:47 Dose: 300 mls/hr Documented by: Metronidazole 500 mg/ Premix 100 mls @ 100 mls/hr IV TID [facility] Last Admin: 07/11/20 05:16 Dose: 100 mls/hr Documented by: Sodium Chloride (Normal Saline) 1,000 mls @ 125 mls/hr IV ASDIRECTED [facility] Last Admin: 07/10/20 22:14 Dose: 125 mls/hr Documented by: Potassium Chloride/Sodium Chloride (Normal Saline With 40 Meq Kcl) 1,000 mls @ 250 mls/hr IV ONETIME ONE Stop: 07/10/20 11:14 Last Admin: 07/10/20 07:31 Dose: 250 mls/hr Documented by: Magnesium Sulfate 2 gm/ Premix 50 mls @ 12.5 mls/hr IV ONETIME ONE Stop: 07/10/20 17:51 Last Admin: 07/10/20 14:25 Dose: 12.5 mls/hr Documented by: Iopamidol (Iopamidol 755 Mg/Ml 500 Ml Multipack Bottle) 75 ml IVPUSH ONETIME STA Stop: 07/09/20 15:14 Last Admin: 07/09/20 15:14 Dose: 75 ml Documented by: Labetalol HCl (Labetalol 100 Mg/20 Ml Mdv) 20 mg IVPUSH ONETIME PRN; Protocol PRN Reason: Hypertension Last Admin: 07/11/20 00:09 Dose: 20 mg Documented by: Lorazepam (Lorazepam 2 Mg/Ml Sdv) 0.5 mg IVPUSH ONETIME ONE Stop: 07/11/20 00:01 Last Admin: 07/11/20 00:10 Dose: 0.5 mg Documented by: Nicotine (Nicotine 21 Mg/24 Hr Patch) 21 mg TRDERM DAILY [facility] Last Admin: 07/10/20 08:51 Dose: 21 mg Documented by: Ondansetron HCl (Ondansetron 4 Mg Tab.Dis) 4 mg PO Q4H PRN PRN Reason: nausea, able to take PO Potassium Chloride (Potassium Chloride 20 Meq Tab.Er) 40 meq PO ONETIME ONE Stop: 07/09/20 18:14 Last Admin: 07/09/20 20:06 Dose: 40 meq Documented by: Potassium Chloride (Potassium Chloride 20 Meq Tab.Er) 40 meq PO ONETIME ONE Stop: 07/10/20 06:43 Last Admin: 07/10/20 06:59 Dose: 40 meq Documented by: Potassium Chloride (Potassium Chloride 20 Meq Tab.Er) 40 meq PO ONETIME ONE Stop: 07/10/20 12:36 Last Admin: 07/10/20 12:38 Dose: 40 meq Documented by: Sodium Chloride (Sodium Chloride 0.9% 10 Ml Syringe) 10 ml FLUSH ASDIRECTED PRN PRN Reason: Keep Vein Open Last Admin: 07/09/20 13:33 Dose: 10 ml Documented by: Sodium Chloride (Sodium Chloride 0.9% 2.5 Ml Syringe) 2.5 ml FLUSH ASDIRECTED PRN PRN Reason: Keep Vein Open Last Admin: 07/09/20 13:33 Dose: 2.5 ml Documented by:
== END 2020-07-11 07:45 | disposition left against medical advice (07) ==
LOC: MW.ED 13:08 → MW.ICU 17:59
PROVIDERS: ADMIT Student in an Organized Health Care Education/Training Program; ATTEND Student in an Organized Health Care Education/Training Program
DX: K62.89 Other specified diseases of anus and rectum (principal); K92.2 Gastrointestinal hemorrhage, unspecified; D64.9 Anemia, unspecified; D72.829 Elevated white blood cell count, unspecified; E87.6 Hypokalemia; N17.9 Acute kidney failure, unspecified; E87.1 Hypo-osmolality and hyponatremia; K21.9 Gastro-esophageal reflux disease without esophagitis; Z79.899 Other long term (current) drug therapy; Z87.891 Personal history of nicotine dependence; Z20.822 Contact with and (suspected) exposure to COVID-19
CPT/HCPCS: 36415; 74178; 80053; 80305; 83690; 83735; 84100; 84132; 85018; 85025; 85610; 86850; 86900; 86901; 87040; 87045; 87046; 87324; 87338; 87449; 87899; 96365; 96374; 96375; 99285; A9270; C9113; J2060; J2543; J3475; J3480; J3490; J7030; Q9967; U0002; 96366; 96368; 96376; 99284; G0378

== ENCOUNTER 2020-07-11 12:26 | Observation (INO) | payer MEDICARE ==
[2020-07-11] MEDS ORDERED: Sodium Chloride 0.9% 10 ML Syringe FLUSH PRN (13:25)
[2020-07-11] MEDS ORDERED: Sodium Chloride 0.9% 2.5 ML Syringe FLUSH PRN (13:25)
--- NOTE | 2020-07-11 13:25 | EDM.PDOC ---
ED HPI GENERAL MEDICAL PROBLEM - General Chief Complaint: General Stated Complaint: EVALUATION Time Seen by Provider: 07/11/20 12:29 Source of Information: Reports: Patient History Limitations: Reports: No Limitations - History of Present Illness INITIAL COMMENTS - FREE TEXT/NARRATIVE: HISTORY AND PHYSICAL: History of present illness: Patient is a 69-year-old male who presents to the emergency room after recently signing out AGAINST MEDICAL ADVICE from the [facility] [place]. Patient was admitted to the hospital on 07/09/2020 for rectal bleeding and proctitis, hypokalemia, hyponatremia and acute kidney injury.. He had Hemoccult positive stool. He was having 1-5 melena stools daily over the past week. During his hospital stay he had a surgical consult with Dr. Wu for colonoscopy to be completed tomorrow. Patient was on IV Zosyn and Flagyl, treating for infectious versus inflammatory process. Patient states he left the hospital this morning because he was wanting to return home to [place], shortly after leaving the facility he started to feel unwell and fatigued. States he hasn't had a bloody stool in the past 24 hours. Patient denies any fever, chills, headache, change in vision, syncope or near syncope. Denies any chest pain, back pain, shortness of breath or cough. Denies any abdominal pain, nausea, vomiting, diarrhea, constipation or dysuria. Has not noted any blood in urine or stool. Patient has been eating and drinking appropriately. Review of systems: As per history of present illness and below otherwise all systems reviewed and negative. Past medical history: As per history of present illness and as reviewed below otherwise noncontributory. Surgical history: As per history of present illness and as reviewed below otherwise noncontribu tory. Social history: See social history for further information Family history: As per history of present illness and as reviewed below otherwise noncontributory. Physical exam: General: Well developed and well nourished. Alert and orientated x 3. Nontoxic in appearance and in no acute distress. Vital signs are stable and have been reviewed by me. Nursing notes were reviewed. HEENT: Atraumatic, normocephalic, pupils equal and reactive bilaterally, negative for conjunctival pallor or scleral icterus, mucous membranes moist, TMs normal bilaterally, throat clear, neck supple, nontender, trachea midline. No drooling or trismus noted. No meningeal signs. No hot potato voice noted. Lungs: Clear to auscultation bilaterally. No wheezes, rales, or rhonchi. Chest nontender. Normal work of breathing, no accessory muscles used. Heart: S1S2, regular rate and rhythm without overt murmur, gallops, or rubs. No JVD. No peripheral edema Abdomen: Soft, nondistended, nontender. Normoactive bowel sounds. Negative for masses or costovertebral tenderness. Pelvis: Stable nontender. Genitourinary/Rectal: Was able to obtain a stool sample, Hemoccult negative. Skin: Intact, warm, dry. No lesions or rashes noted. Hematologic: No petechiae or purpra. Mucosa appropriate color and normal nail bed color and refill. Extremities: Atraumatic, moves all extremities per self without difficulty or deficits, negative for cords or calf pain. Neurovascular unremarkable. Neuro: Awake, alert, oriented. Cranial nerves II through XII unremarkable. Cerebellum unremarkable. Motor and sensory unremarkable throughout. Exam nonfocal. Psychiatric: Mood and affect are appropriate. Normal thought process. Answering questions appropriately. Notes: *This patient was seen and evaluated during the 2019 SARS-CoV-2 novel coronavirus pandemic period. Community viral transmission is ongoing at time of this encounter and the emergency department is operating under pandemic response procedures. Patient presents to the emergency room after recently leaving AGAINST MEDICAL ADVICE requesting to "go back to my room". He does want to be "readmitted" as he feels unwell and not healthy enough to drive back to [place]. He is complaining of generalized weakness and fatigue. I did call the [facility] floor to verify that patient would need to be reevaluated. Patient is aware and agreeable of repeat labs needing to be done before being accepted for admission. Upon arrival the patient's blood pressure is elevated, stating he has not taken his medications yet today. Patient's hemoglobin has improved from this morning. Continues to be hypokalemic at 2.8. He did leave a stool sample which was negative for Hemoccult. I have talked with the patient about today's findings, in addition to providing specific details for plan of care. Reassessment at the time of disposition demonstrates that the patient is in no acute distress. Dr. Reynoso, hospitalist on-call, was consulted on this patient. She is agreeable to keeping him for observation for the hypokalemia. Patient was made aware that since he left AGAINST MEDICAL ADVICE he will likely need to reschedule his colonoscopy, he is aware and agreeable. Diagnostics: CBC, CMP, Mag, EKG, Hemoccult Therapeutics: NS with 40meQ K Impression: Hypokalemia Weakness Plan: Observation admission to Med/Surg with Telemetry Definitive disposition and diagnosis as appropriate pending reevaluation and review of above. - Related Data Allergies Allergy/AdvReac Type Severity Reaction Status Date / Time No Known Allergies Allergy Verified 07/11/20 13:26 Home Meds: Home Meds Omeprazole 40 mg PO DAILY 07/09/20 [History] Gabapentin [Neurontin] 1,200 mg PO TID 07/11/20 [History] Metoprolol Tartrate 50 mg PO BID 07/11/20 [History] Past Medical History Gastrointestinal History: Reports: GERD Genitourinary History: Reports: BPH Oncologic (Cancer) History: Reports: Prostate - Infectious Disease History Infectious Disease History: Reports: None Social & Family History - Family History Family Medical History: No Pertinent Family History GI: Reports: Other (See Below) Oncologic: Reports: Prostate - Caffeine Use Caffeine Use: Reports: Coffee, Energy Drinks, Soda, Tea ED ROS GENERAL - Review of Systems Review Of Systems: Comprehensive ROS is negative, except as noted in HPI. ED EXAM, GENERAL - Physical Exam Exam: See Below (See dictation) Course - Vital Signs Last Recorded V/S: Last Vital Signs Temp 96.3 F L 07/11/20 13:23 Pulse 70 07/11/20 13:23 Resp 18 07/11/20 13:23 BP 198/108 H 07/11/20 13:23 Pulse Ox 98 07/11/20 13:23 - Orders/Labs/Meds Orders: Active Orders 24 hr Category Date Time Status Admission Status [Patient Status] [ADT] Stat ADT 07/11/20 15:05 Active EKG Documentation Completion [RC] STAT Care 07/11/20 14:32 Active Potassium Chloride Riders [KCL in Water 40 MEQ/100 ML] Med 07/11/20 15:06 Active 40 meq Premix Bag 1 bag IV ONETIME Sodium Chloride 0.9% [Normal Saline] 1,000 ml Med 07/11/20 15:07 Active IV STAT Sodium Chloride 0.9% [Saline Flush] Med 07/11/20 13:25 Active 10 ml FLUSH ASDIRECTED PRN Sodium Chloride 0.9% [Saline Flush] Med 07/11/20 13:25 Active 2.5 ml FLUSH ASDIRECTED PRN Saline Lock Insert [OM.PC] Stat Oth 07/11/20 13:25 Ordered Medication Orders Potassium Chloride 40 meq/ (Premix) 100 mls @ 25 mls/hr IV ONETIME ONE Stop: 07/11/20 19:05 Sodium Chloride (Normal Saline) 1,000 mls @ 100 mls/hr IV STAT ONE Stop: 07/12/20 01:06 Pantoprazole Sodium 40 mg/ (Sodium Chloride) 10 mls @ 300 mls/hr IV Q24H HUNG Ciprofloxacin/Dextrose 400 mg/ (Premix) 200 mls @ 200 mls/hr IV Q12H HUNG Metronidazole 500 mg/ Premix 100 mls @ 100 mls/hr IV TID HUNG Metoprolol Tartrate (Metoprolol Tartrate 50 Mg Tab) 50 mg PO BID HUNG Non-Formulary Medication (Gabapentin) 1,200 mg PO TID HUNG Ondansetron HCl (Ondansetron 4 Mg/2 Ml Sdv) 4 mg IVPUSH Q4H PRN PRN Reason: Nausea Sodium Chloride (Sodium Chloride 0.9% 10 Ml Syringe) 10 ml FLUSH ASDIRECTED PRN PRN Reason: Keep Vein Open Sodium Chloride (Sodium Chloride 0.9% 2.5 Ml Syringe) 2.5 ml FLUSH ASDIRECTED PRN PRN Reason: Keep Vein Open Labs: Laboratory Tests 07/11/20 07/11/20 07/11/20 Range/Units 13:17 13:17 13:40 WBC 10.77 (4.0-11.0) K/uL RBC 3.73 L (4.50-5.90) M/uL Hgb 11.6 L (13.0-17.0) g/dL Hct 35.1 L (38.0-50.0) % MCV 94.1 (80.0-98.0) fL MCH 31.1 (27.0-32.0) pg MCHC 33.0 (31.0-37.0) g/dL RDW Std Deviation 57.0 (28.0-62.0) fl RDW Coeff of Teo 16 H (11.0-15.0) % Plt Count 348 (150-400) K/uL MPV 10.20 (7.40-12.00) fL Neut % (Auto) 62.9 (48.0-80.0) % Lymph % (Auto) 30.0 (16.0-40.0) % [place] % (Auto) 5.1 (0.0-15.0) % Eos % (Auto) 1.5 (0.0-7.0) % Baso % (Auto) 0.5 (0.0-1.5) % Neut # (Auto) 6.8 H (1.4-5.7) K/uL Lymph # (Auto) 3.2 H (0.6-2.4) K/uL [place] # (Auto) 0.6 (0.0-0.8) K/uL Eos # (Auto) 0.2 (0.0-0.7) K/uL Baso # (Auto) 0.1 (0.0-0.1) K/uL Nucleated RBC % 0.0 /100WBC Nucleated RBCs # 0 K/uL Sodium 137 (136-148) mmol/L Potassium 2.6 L (3.5-5.1) mmol/L Chloride 98 (98-107) mmol/L Carbon Dioxide 29.1 (21.0-32.0) mmol/L BUN 9 (7.0-18.0) mg/dL Creatinine 1.3 (0.8-1.3) mg/dL Est Cr Clr Drug Dosing 63.68 mL/min Estimated GFR (MDRD) 55.1 ml/min Glucose 134 H (74-106) mg/dL Calcium 8.2 L (8.5-10.1) mg/dL Magnesium 2.0 (1.8-2.4) mg/dL Total Bilirubin 0.7 (0.2-1.0) mg/dL AST 21 (15-37) IU/L ALT 23 (14-63) IU/L Alkaline Phosphatase 125 H (46-116) U/L Total Protein 7.1 (6.4-8.2) g/dL Albumin 3.4 (3.4-5.0) g/dL Globulin 3.7 (2.6-4.0) g/dL Albumin/Globulin Ratio 0.9 (0.9-1.6) Urine Color YELLOW Urine Appearance SLT CLOUDY Urine pH 6.5 (5.0-8.0) Ur Specific [place] 1.010 (1.001-1.035) Urine Protein NEGATIVE (NEGATIVE) mg/dL Urine Glucose (UA) 100 H (NEGATIVE) mg/dL Urine Ketones NEGATIVE (NEGATIVE) mg/dL Urine Occult Blood TRACE-INTACT H (NEGATIVE) Urine Nitrite NEGATIVE (NEGATIVE) Urine Bilirubin NEGATIVE (NEGATIVE) Urine Urobilinogen 0.2 (<2.0) EU/dL Ur Leukocyte Esterase NEGATIVE (NEGATIVE) Urine RBC 0-1 (0-2/HPF) Urine WBC 2-3 (0-5/HPF) Ur Epithelial Cells RARE (NONE-FEW) Amorphous Sediment RARE (NEGATIVE) Urine Bacteria RARE (NEGATIVE) Urine Mucus RARE (NONE-MOD) Meds: Medications Generic Name Dose Route Start Last Admin Trade Name Freq PRN Reason Stop Dose Admin Potassium Chloride 40 meq/ 100 mls @ 25 mls/hr 07/11/20 15:06 Premix IV 07/11/20 19:05 ONETIME ONE Sodium Chloride 1,000 mls @ 100 mls/hr 07/11/20 15:07 Normal Saline IV 07/12/20 01:06 STAT ONE Pantoprazole Sodium 40 mg/ 10 mls @ 300 mls/hr 07/12/20 05:00 Sodium Chloride IV Q24H HUNG Ciprofloxacin/Dextrose 400 mg/ 200 mls @ 200 mls/hr 07/11/20 15:45 Premix IV Q12H HUNG Metronidazole 500 mg/ Premix 100 mls @ 100 mls/hr 07/11/20 22:00 IV TID HUNG Metoprolol Tartrate 50 mg 07/11/20 21:00 Metoprolol Tartrate 50 Mg Tab PO BID HUNG Non-Formulary Medication 1,200 mg 07/11/20 22:00 Gabapentin PO TID HUNG Ondansetron HCl 4 mg 07/11/20 15:30 Ondansetron 4 Mg/2 Ml Sdv IVPUSH Q4H PRN Nausea Sodium Chloride 10 ml 07/11/20 13:25 Sodium Chloride 0.9% 10 Ml Syringe FLUSH ASDIRECTED PRN Keep Vein Open Sodium Chloride 2.5 ml 07/11/20 13:25 Sodium Chloride 0.9% 2.5 Ml Syringe FLUSH ASDIRECTED PRN Keep Vein Open Discontinued Medications Generic Name Dose Route Start Last Admin Trade Name Freq PRN Reason Stop Dose Admin Metoprolol Tartrate 50 mg 07/11/20 14:56 Metoprolol Tartrate 50 Mg Tab PO 07/11/20 14:57 ONETIME ONE Omeprazole 40 mg 07/11/20 14:56 Omeprazole 20 Mg Cap.Cr PO 07/11/20 14:57 ONETIME ONE Departure - Departure Time of Disposition: 15:50 Disposition: Refer to Observation Clinical Impression: Hypokalemia, Weakness - Discharge Information Sepsis Event Note (ED) - Focused Exam Vital Signs: Vital Signs Temp Pulse Resp BP Pulse Ox 07/11/20 13:23 96.3 F L 70 18 198/108 H 98 - My Orders Last 24 Hours: My Active Orders 07/11/20 13:25 Sodium Chloride 0.9% [Saline Flush] 10 ml FLUSH ASDIRECTED PRN Sodium Chloride 0.9% [Saline Flush] 2.5 ml FLUSH ASDIRECTED PRN Saline Lock Insert [OM.PC] Stat 07/11/20 14:32 EKG Documentation Completion [RC] STAT 07/11/20 15:05 Admission Status [Patient Status] [ADT] Stat 07/11/20 15:06 Potassium Chloride Riders [KCL in Water 40 MEQ/100 ML] 40 meq Premix Bag 1 bag IV ONETIME 07/11/20 15:07 Sodium Chloride 0.9% [Normal Saline] 1,000 ml IV STAT - Assessment/Plan Last 24 Hours: My Active Orders 07/11/20 13:25 Sodium Chloride 0.9% [Saline Flush] 10 ml FLUSH ASDIRECTED PRN Sodium Chloride 0.9% [Saline Flush] 2.5 ml FLUSH ASDIRECTED PRN Saline Lock Insert [OM.PC] Stat 07/11/20 14:32 EKG Documentation Completion [RC] STAT 07/11/20 15:05 Admission Status [Patient Status] [ADT] Stat 07/11/20 15:06 Potassium Chloride Riders [KCL in Water 40 MEQ/100 ML] 40 meq Premix Bag 1 bag IV ONETIME 07/11/20 15:07 Sodium Chloride 0.9% [Normal Saline] 1,000 ml IV STAT
[2020-07-11 14:52] LABS: CARBON DIOXIDE,CO2 29.1 mmol/L (21.0-32.0); POTASSIUM,K 2.6 mmol/L (3.5-5.1)
[2020-07-11] MEDS ORDERED: Metoprolol Tartrate 50 MG Tab PO ONE ×2 (14:56→16:15)
[2020-07-11] MEDS ORDERED: Omeprazole 20 MG Cap.CR PO ONE (14:56)
[2020-07-11] MEDS ORDERED: Potassium Chloride Riders 40 MEQ in Premix Bag 1 BAG IV ONE ×2 (15:06→19:55)
[2020-07-11] MEDS ORDERED: Sodium Chloride 0.9% 1,000 ML IV ONE (15:07)
--- NOTE | 2020-07-11 15:08 | PCM.EKG ---
#1 Interpretation EKG Date: 07/11/20 Time: 14:46 Rhythm: NSR Rate (Beats/Min): 73 [place]: Normal P-Wave: Present QRS: Other (LVH) ST-T: Other (T inversions in inferolateral leads) QT: Normal
[2020-07-11] MEDS ORDERED: Ondansetron 4 MG/2 ML SDV IVPUSH PRN (15:30)
--- NOTE | 2020-07-11 15:38 | PCM.HP.2 ---
H&P History of Present Illness - General Date of Service: 07/11/20 Admit Problem/Dx: Admission Diagnosis/Problem Admission Diagnosis/Problem Hypokalemia Source of Information: Patient History Limitations: Reports: No Limitations - History of Present Illness Initial Comments - Free Text/Narative: 69-year-old male with past medical history of GERD, proctitis, hypertension, tobacco abuse; presenting today for readmission after absconding earlier this morning. Patient was admitted to the medical floor on 07/09/2020 for near syncopal episode and ambulatory dysfunction in the setting of melena per rectum x6 days. Patient was admitted for electrolyte disturbances including hy pokalemia/hypomagnesemia and was scheduled for a inpatient colonoscopy w. general surgery. Patient however on July 11, 2020 left AGAINST MEDICAL ADVICE with his IV still in place. Law Enforcement had to escort patient back to the ER to have his IV removed and patient left AGAINST MEDICAL ADVICE after signing form. Pt returned thereafter explaining not feeling well. ED course: Patient endorsed to ED provider not feeling well and would like to be put back in the room that he had been in. Vitals 151/76. Pulse rate 78. Temperature 98.2. O2 sat 98% room air. Labs: Hemoglobin 11.6. Potassium 2.6 Glucose 134. UA negative. EKG: Normal sinus rhythm. T inversion in inferolateral leads. Metoprolol 50 mg tartrate given once. Potassium 40 mEq IV. 1 L IV NS given as well. Admitted to general medical floor Bedside: Endorses since he could not get a woprk release after leaving AMA and feeling tired ; returned back to the ED Mentions having a history of prostate CA s/p chemo in 2013. This piece of information was not relayed on initial admission Previous Admission Notes: notes from recent admission prior to pts absconding AMA Hospital course: 69-year-old male with past medical history of GERD admitted to the general medical floor for proctitis, melena per rectum and ambulatory dysfunction secondary to mild dehydration in light of his melena. Patient was started on Zosyn plus Flagyl for proctitis and electrolytes were repleted as needed. General surgery was consulted and Dr. Qureshi recommended possible inpatient colonoscopy once electrolytes and hemoglobin was noted to be stable. Patient not require any blood transfusion and vitals otherwise were maintained throughout stay. Patient initially was on clear liquid diet but was advanced on July 10, 2020 to regular diet anticipation for following day bowel prep. Hypokalemia noted and patient was continuously repleted with 40 mEq IV/40 mg p.o.: July 11, 2020: Patient at bedside endorsed wanting to go home and leaving. Patient had left AMA with IV still in place. Patient was off hospital premises with IV. Costing Manager had called law enforcement to help escort patient back to the ED for removal of his IV. Patient had his IV removed and AMA form was signed. Patient was in stable condition Morning prior to patient leaving AMA. Vital signs 151/68. Pulse rate 78. Afebrile 98.1. 98% room air Labs Hemoglobin 9.5 Potassium 2.6. 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 - Related Data Allergies/Adverse Reactions: Allergies Allergy/AdvReac Type Severity Reaction Status Date / Time No Known Allergies Allergy Verified 07/11/20 13:26 Home Medications: Home Meds Omeprazole 40 mg PO DAILY 07/09/20 [History] Gabapentin [Neurontin] 1,200 mg PO TID 07/11/20 [History] Metoprolol Tartrate 50 mg PO BID 07/11/20 [History] Past Medical History Gastrointestinal History: Reports: GERD Genitourinary History: Reports: BPH Oncologic (Cancer) History: Reports: Prostate - Infectious Disease History Infectious Disease History: Reports: None Social & Family History - Family History Family Medical History: No Pertinent Family History GI: Reports: Other (See Below) Oncologic: Reports: Prostate - Tobacco Use Tobacco Use Status *Q: Unknown Ever Used Tobacco - Caffeine Use Caffeine Use: Reports: Coffee, Energy Drinks, Soda, Tea H&P Review of Systems - Review of Systems: Review Of Systems: See Below Exam - Exam Exam: See Below - Vital Signs Vital Signs: Last Vital Signs Temp 96.3 F L 07/11/20 13:23 Pulse 70 07/11/20 13:23 Resp 18 07/11/20 13:23 BP 198/108 H 07/11/20 13:23 Pulse Ox 98 07/11/20 13:23 Weight: 81.647 kg - Exam Quality Assessment: No: Supplemental Oxygen - Patient Data Lab Results Last 24 hrs: Laboratory Results - last 24 hr 07/11/20 07/11/20 07/11/20 Range/Units 13:17 13:17 13:40 WBC 10.77 (4.0-11.0) K/uL RBC 3.73 L (4.50-5.90) M/uL Hgb 11.6 L (13.0-17.0) g/dL Hct 35.1 L (38.0-50.0) % MCV 94.1 (80.0-98.0) fL MCH 31.1 (27.0-32.0) pg MCHC 33.0 (31.0-37.0) g/dL RDW Std Deviation 57.0 (28.0-62.0) fl RDW Coeff of Teo 16 H (11.0-15.0) % Plt Count 348 (150-400) K/uL MPV 10.20 (7.40-12.00) fL Neut % (Auto) 62.9 (48.0-80.0) % Lymph % (Auto) 30.0 (16.0-40.0) % [place] % (Auto) 5.1 (0.0-15.0) % Eos % (Auto) 1.5 (0.0-7.0) % Baso % (Auto) 0.5 (0.0-1.5) % Neut # (Auto) 6.8 H (1.4-5.7) K/uL Lymph # (Auto) 3.2 H (0.6-2.4) K/uL [place] # (Auto) 0.6 (0.0-0.8) K/uL Eos # (Auto) 0.2 (0.0-0.7) K/uL Baso # (Auto) 0.1 (0.0-0.1) K/uL Nucleated RBC % 0.0 /100WBC Nucleated RBCs # 0 K/uL Sodium 137 (136-148) mmol/L Potassium 2.6 L (3.5-5.1) mmol/L Chloride 98 (98-107) mmol/L Carbon Dioxide 29.1 (21.0-32.0) mmol/L BUN 9 (7.0-18.0) mg/dL Creatinine 1.3 (0.8-1.3) mg/dL Est Cr Clr Drug Dosing 63.68 mL/min Estimated GFR (MDRD) 55.1 ml/min Glucose 134 H (74-106) mg/dL Calcium 8.2 L (8.5-10.1) mg/dL Magnesium 2.0 (1.8-2.4) mg/dL Total Bilirubin 0.7 (0.2-1.0) mg/dL AST 21 (15-37) IU/L ALT 23 (14-63) IU/L Alkaline Phosphatase 125 H (46-116) U/L Total Protein 7.1 (6.4-8.2) g/dL Albumin 3.4 (3.4-5.0) g/dL Globulin 3.7 (2.6-4.0) g/dL Albumin/Globulin Ratio 0.9 (0.9-1.6) Urine Color YELLOW Urine Appearance SLT CLOUDY Urine pH 6.5 (5.0-8.0) Ur Specific [place] 1.010 (1.001-1.035) Urine Protein NEGATIVE (NEGATIVE) mg/dL Urine Glucose (UA) 100 H (NEGATIVE) mg/dL Urine Ketones NEGATIVE (NEGATIVE) mg/dL Urine Occult Blood TRACE-INTACT H (NEGATIVE) Urine Nitrite NEGATIVE (NEGATIVE) Urine Bilirubin NEGATIVE (NEGATIVE) Urine Urobilinogen 0.2 (<2.0) EU/dL Ur Leukocyte Esterase NEGATIVE (NEGATIVE) Urine RBC 0-1 (0-2/HPF) Urine WBC 2-3 (0-5/HPF) Ur Epithelial Cells RARE (NONE-FEW) Amorphous Sediment RARE (NEGATIVE) Urine Bacteria RARE (NEGATIVE) Urine Mucus RARE (NONE-MOD) Result Diagrams: 07/11/20 13:17 07/11/20 13:17 Sepsis Event Note - Evaluation Sepsis Screening Result: No Definite Risk - Focused Exam Vital Signs: Vital Signs Temp Pulse Resp BP Pulse Ox 07/11/20 13:23 96.3 F L 70 18 198/108 H 98 - Problem List (1) GI bleed SNOMED Code(s): 08326666 ICD Code: K92.2 - GASTROINTESTINAL HEMORRHAGE, UNSPECIFIED Status: Acute Current Visit: No (2) Hypokalemia SNOMED Code(s): 27088606 ICD Code: E87.6 - HYPOKALEMIA Status: Acute Current Visit: Yes (3) Proctitis SNOMED Code(s): 2942231 ICD Code: K62.89 - OTHER SPECIFIED DISEASES OF ANUS AND RECTUM Status: Acute Current Visit: No (4) Volume depletion SNOMED Code(s): 839586676 ICD Code: E86.9 - VOLUME DEPLETION, UNSPECIFIED Status: Acute Current Visit: No Problem List Initiated/Reviewed/Updated: Yes Orders Last 24hrs: Active Orders 24 hr Category Date Time Status Admission Status [Patient Status] [ADT] Stat ADT 07/11/20 15:05 Active Antiembolic Devices [RC] PER UNIT ROUTINE Care 07/11/20 15:31 Ordered EKG Documentation Completion [RC] STAT Care 07/11/20 14:32 Active Oxygen Therapy [RC] PRN Care 07/11/20 15:30 Ordered Up With Assistance [RC] ASDIRECTED Care 07/11/20 15:30 Ordered VTE/DVT Education [RC] PER UNIT ROUTINE Care 07/11/20 15:30 Ordered Vital Signs [RC] Q4H Care 07/11/20 15:30 Ordered Regular Diet [DIET] Diet 07/11/20 Dinner Ordered CBC WITH AUTO DIFF [HEME] AM Lab 07/12/20 05:11 Ordered CBC WITH AUTO DIFF [HEME] AM Lab 07/13/20 05:11 Ordered CBC WITH AUTO DIFF [HEME] AM Lab 07/14/20 05:11 Ordered COMPREHENSIVE METABOLIC PN,CMP [CHEM] AM Lab 07/12/20 05:11 Ordered COMPREHENSIVE METABOLIC PN,CMP [CHEM] AM Lab 07/13/20 05:11 Ordered COMPREHENSIVE METABOLIC PN,CMP [CHEM] AM Lab 07/14/20 05:11 Ordered CREATININE,URINE RAND [URCHEM] Routine Lab 07/11/20 15:32 Ordered MAGNESIUM [CHEM] AM Lab 07/12/20 05:11 Ordered MAGNESIUM [CHEM] AM Lab 07/13/20 05:11 Ordered MAGNESIUM [CHEM] AM Lab 07/14/20 05:11 Ordered OSMOLALITY - SERUM [REF] Routine Lab 07/11/20 15:32 Ordered OSMOLALITY - URINE Routine Lab 07/11/20 15:32 Ordered POTASSIUM,URINE RANDOM [URCHEM] Routine Lab 07/11/20 15:32 Ordered SODIUM,URINE RANDOM [URCHEM] Routine Lab 07/11/20 15:32 Ordered Gabapentin Med 07/11/20 22:00 Ordered 1,200 mg PO TID Metoprolol Tartrate [Lopressor] Med 07/11/20 21:00 Ordered 50 mg PO BID Ondansetron [Zofran] Med 07/11/20 15:30 Ordered 4 mg IVPUSH Q4H PRN Potassium Chloride Riders [KCL in Water 40 MEQ/100 ML] Med 07/11/20 15:06 Active 40 meq Premix Bag 1 bag IV ONETIME Sodium Chloride 0.9% [Normal Saline] 1,000 ml Med 07/11/20 15:07 Active IV STAT Sodium Chloride 0.9% [Saline Flush] Med 07/11/20 13:25 Active 10 ml FLUSH ASDIRECTED PRN Sodium Chloride 0.9% [Saline Flush] Med 07/11/20 13:25 Active 2.5 ml FLUSH ASDIRECTED PRN Saline Lock Insert [OM.PC] Stat Oth 07/11/20 13:25 Ordered Sequential Compression Device [OM.PC] Per Unit Routine Oth 07/11/20 15:31 Ordered Resuscitation Status Routine Resus Stat 07/11/20 15:30 Ordered Medication Orders Potassium Chloride 40 meq/ (Premix) 100 mls @ 25 mls/hr IV ONETIME ONE Stop: 07/11/20 19:05 Sodium Chloride (Normal Saline) 1,000 mls @ 100 mls/hr IV STAT ONE Stop: 07/12/20 01:06 Metoprolol Tartrate (Metoprolol Tartrate 50 Mg Tab) 50 mg PO BID HUNG Non-Formulary Medication (Gabapentin) 1,200 mg PO TID HUNG Ondansetron HCl (Ondansetron 4 Mg/2 Ml Sdv) 4 mg IVPUSH Q4H PRN PRN Reason: Nausea Sodium Chloride (Sodium Chloride 0.9% 10 Ml Syringe) 10 ml FLUSH ASDIRECTED PRN PRN Reason: Keep Vein Open Sodium Chloride (Sodium Chloride 0.9% 2.5 Ml Syringe) 2.5 ml FLUSH ASDIRECTED PRN PRN Reason: Keep Vein Open Assessment/Plan Comment:: Assessment: 1. Proctitis 2. Hypokalemia of unknown etiology 3. Normocytic anemia 4. PMH: tobacco abuse , HTN , prostate CA Plan Admit to inpatient Full code I/O's per routine Vitals per routine DVT: SCD GI: pantoprazole Regular diet Up with assistance 1.Proctitis: Hemoccult positive in setting of proctitis: hemoglobin currently stable. Patient was initially scheduled for a colonoscopy for GIB per surgery on 07-12-2020; this has been cancelled as pt. left AMA and will not complete bowel prep in time. Hgb currently stable. Will continue to monitor for need of transfusion vs urgent scope. For proctitis: will switch to Cipro/flagyl and monitor for efficacy Prep-H for pain relief PRN 2. Hypokalemia: 40 mEq started in ED. Significant hypokalemia despite multiple rounds of potassium repletion IV/PO; unsure oif etiology: Urine studies ordered to evaluate for other causes e.g: potassium-wasting dx, renal dx/ aldosteronism etc Studies do far suggest other etiologies including transcellular potassium shifts, gastrointestinal losses, or poor dietary intake ; will continue to monitor Stenosis noted on previous admission may suggest renal etiology but this will need to be followed most likely in outpatient setting Continue to replete PRN and check and replete other electrolytes as needed Continue telemetry as well EKG at this time unremarkable for acute findings HTN: continue Metoprolol BID dosing 3. Past medical history of tobacco abuse: Nicotine patch ordered
[2020-07-11] MEDS ORDERED: Cocoa Butter/Phenylephrine Rectal Supp RECTAL PRN (16:10)
[2020-07-11] MEDS ORDERED: Famotidine 20 MG Tab PO PRN (16:10)
[2020-07-11] MEDS ORDERED: Acetaminophen 500 MG Tab PO PRN (16:11)
[2020-07-11] MEDS ORDERED: Potassium Chloride 20 MEQ Tab.ER PO ONE (16:12)
[2020-07-11] MEDS: Ciprofloxacin in D5W 400 MG in Premix Bag 1 BAG IV SCH ×2 (16:46)
[2020-07-11] MEDS: metroNIDAZOLE/Normal Saline 500 MG in Premix Bag 1 BAG IV SCH (18:35)
[2020-07-11] MEDS ORDERED: Labetalol 100 MG/20 ML MDV IVPUSH ONE (19:53)
[2020-07-11] MEDS: Metoprolol Tartrate 50 MG Tab PO SCH (20:44)
[2020-07-11] MEDS: Spironolactone 25 MG Tab PO SCH (20:45)
[2020-07-11] MEDS: Bacitracin Oint 28.35 GM Tube TOP SCH (20:51)
[2020-07-11] MEDS ORDERED: Labetalol 100 MG/20 ML MDV IVPUSH PRN (21:37)
[2020-07-11] MEDS: Gabapentin 300 MG Cap PO SCH (22:33)
--- NOTE | 2020-07-11 23:59 | PCM.SN.2 ---
- Free Text/Narrative Note: Patient does not want to take his hypertensive meds states that they do not work for him and make him feel weird. Patient was informed that his pressure is high and it would be in his best interest to take the medications but he is not interested. Patient was started on IV labetalol as needed for high blood pressure and was counseled thoroughly about underlying antihypertensive meds.
[2020-07-12] MEDS: metroNIDAZOLE/Normal Saline 500 MG in Premix Bag 1 BAG IV SCH ×3 (00:16→16:30)
[2020-07-12] MEDS: Nicotine 14 MG/24 Hr Patch TRDERM SCH ×2 (00:17→08:16)
[2020-07-12] MEDS: Ciprofloxacin in D5W 400 MG in Premix Bag 1 BAG IV SCH ×4 (02:55→15:19)
[2020-07-12] MEDS ORDERED: Pantoprazole 40 MG in Sodium Chloride 0.9% 10 ML IV SCH (05:00)
[2020-07-12] MEDS: Gabapentin 300 MG Cap PO SCH ×2 (05:44→14:06)
[2020-07-12 06:02] LABS: BLOOD UREA NITROGEN,BUN 6 mg/dL (7.0-18.0); CARBON DIOXIDE,CO2 26.7 mmol/L (21.0-32.0); CHLORIDE,CL 101 mmol/L (98-107); GLUCOSE RANDOM 105 mg/dL (74-106); POTASSIUM,K 2.9 mmol/L (3.5-5.1); SODIUM,NA 136 mmol/L (136-148)
[2020-07-12] MEDS: Metoprolol Tartrate 50 MG Tab PO SCH ×2 (08:14→20:13)
[2020-07-12] MEDS: Spironolactone 25 MG Tab PO SCH (08:14)
[2020-07-12] MEDS ORDERED: Magnesium Sulfate/Water 4 GM in Premix Bag 1 BAG IV ONE (08:20)
[2020-07-12] MEDS ORDERED: Potassium Chloride Riders 40 MEQ in Premix Bag 1 BAG IV ONE ×3 (08:21→14:00)
[2020-07-12] MEDS ORDERED: Potassium Chloride 20 MEQ Tab.ER PO ONE ×4 (08:24→19:22)
[2020-07-12] MEDS: Bacitracin Oint 28.35 GM Tube TOP SCH ×2 (08:43→20:16)
--- NOTE | 2020-07-12 12:05 | PCM.PN ---
- General Info Date of Service: 07/12/20 Subjective Update: Bedside: no acute distress. Mentions feeling well. had 1 dark BM last night but denies any overt blood - Review of Systems General: Reports: No Symptoms Cardiovascular: Reports: No Symptoms Gastrointestinal: Denies: Constipation, Decreased Appetite, Diarrhea, Hematochezia, Nausea, Vomiting Genitourinary: Reports: No Symptoms Musculoskeletal: Reports: No Symptoms Neurological: Reports: No Symptoms Psychiatric: Reports: No Symptoms - Patient Data Vitals - Most Recent: Last Vital Signs Temp 96.5 F L 07/12/20 11:44 Pulse 62 07/12/20 11:44 Resp 20 07/12/20 11:44 BP 155/81 H 07/12/20 11:44 Pulse Ox 99 07/12/20 11:44 Weight - Most Recent: 73.21 kg I&O - Last 24 Hours: Intake & Output 07/11/20 07/12/20 07/12/20 22:59 06:59 14:59 Intake Total 650 Output Total 1150 Balance -500 Lab Results Last 24 Hours: Laboratory Results - last 24 hr 07/11/20 07/11/20 07/11/20 Range/Units 13:17 13:17 13:40 WBC 10.77 (4.0-11.0) K/uL RBC 3.73 L (4.50-5.90) M/uL Hgb 11.6 L (13.0-17.0) g/dL Hct 35.1 L (38.0-50.0) % MCV 94.1 (80.0-98.0) fL MCH 31.1 (27.0-32.0) pg MCHC 33.0 (31.0-37.0) g/dL RDW Std Deviation 57.0 (28.0-62.0) fl RDW Coeff of Teo 16 H (11.0-15.0) % Plt Count 348 (150-400) K/uL MPV 10.20 (7.40-12.00) fL Neut % (Auto) 62.9 (48.0-80.0) % Lymph % (Auto) 30.0 (16.0-40.0) % [place] % (Auto) 5.1 (0.0-15.0) % Eos % (Auto) 1.5 (0.0-7.0) % Baso % (Auto) 0.5 (0.0-1.5) % Neut # (Auto) 6.8 H (1.4-5.7) K/uL Lymph # (Auto) 3.2 H (0.6-2.4) K/uL [place] # (Auto) 0.6 (0.0-0.8) K/uL Eos # (Auto) 0.2 (0.0-0.7) K/uL Baso # (Auto) 0.1 (0.0-0.1) K/uL Nucleated RBC % 0.0 /100WBC Nucleated RBCs # 0 K/uL Sodium 137 (136-148) mmol/L Potassium 2.6 L (3.5-5.1) mmol/L Chloride 98 (98-107) mmol/L Carbon Dioxide 29.1 (21.0-32.0) mmol/L BUN 9 (7.0-18.0) mg/dL Creatinine 1.3 (0.8-1.3) mg/dL Est Cr Clr Drug Dosing 63.68 mL/min Estimated GFR (MDRD) 55.1 ml/min Glucose 134 H (74-106) mg/dL Calcium 8.2 L (8.5-10.1) mg/dL Magnesium 2.0 (1.8-2.4) mg/dL Total Bilirubin 0.7 (0.2-1.0) mg/dL AST 21 (15-37) IU/L ALT 23 (14-63) IU/L Alkaline Phosphatase 125 H (46-116) U/L Total Protein 7.1 (6.4-8.2) g/dL Albumin 3.4 (3.4-5.0) g/dL Globulin 3.7 (2.6-4.0) g/dL Albumin/Globulin Ratio 0.9 (0.9-1.6) Urine Color YELLOW Urine Appearance SLT CLOUDY Urine pH 6.5 (5.0-8.0) Ur Specific [place] 1.010 (1.001-1.035) Urine Protein NEGATIVE (NEGATIVE) mg/dL Urine Glucose (UA) 100 H (NEGATIVE) mg/dL Urine Ketones NEGATIVE (NEGATIVE) mg/dL Urine Occult Blood TRACE-INTACT H (NEGATIVE) Urine Nitrite NEGATIVE (NEGATIVE) Urine Bilirubin NEGATIVE (NEGATIVE) Urine Urobilinogen 0.2 (<2.0) EU/dL Ur Leukocyte Esterase NEGATIVE (NEGATIVE) Urine RBC 0-1 (0-2/HPF) Urine WBC 2-3 (0-5/HPF) Ur Epithelial Cells RARE (NONE-FEW) Amorphous Sediment RARE (NEGATIVE) Urine Bacteria RARE (NEGATIVE) Urine Mucus RARE (NONE-MOD) Ur Random Creatinine mg/dL Ur Random Sodium (40.0-220.0) mmol/L Ur Random Potassium mmol/L 07/11/20 07/12/20 07/12/20 Range/Units 13:40 05:05 05:05 WBC 8.31 (4.0-11.0) K/uL RBC 2.89 L (4.50-5.90) M/uL Hgb 9.1 L (13.0-17.0) g/dL Hct 27.1 L (38.0-50.0) % MCV 93.8 (80.0-98.0) fL MCH 31.5 (27.0-32.0) pg MCHC 33.6 (31.0-37.0) g/dL RDW Std Deviation 56.7 (28.0-62.0) fl RDW Coeff of Teo 16 H (11.0-15.0) % Plt Count 253 (150-400) K/uL MPV 10.30 (7.40-12.00) fL Neut % (Auto) 50.2 (48.0-80.0) % Lymph % (Auto) 40.3 H (16.0-40.0) % [place] % (Auto) 6.5 (0.0-15.0) % Eos % (Auto) 2.6 (0.0-7.0) % Baso % (Auto) 0.4 (0.0-1.5) % Neut # (Auto) 4.2 (1.4-5.7) K/uL Lymph # (Auto) 3.4 H (0.6-2.4) K/uL [place] # (Auto) 0.5 (0.0-0.8) K/uL Eos # (Auto) 0.2 (0.0-0.7) K/uL Baso # (Auto) 0.0 (0.0-0.1) K/uL Nucleated RBC % 0.0 /100WBC Nucleated RBCs # 0 K/uL Sodium 136 (136-148) mmol/L Potassium 2.9 L (3.5-5.1) mmol/L Chloride 101 (98-107) mmol/L Carbon Dioxide 26.7 (21.0-32.0) mmol/L BUN 6 L (7.0-18.0) mg/dL Creatinine 1.1 (0.8-1.3) mg/dL Est Cr Clr Drug Dosing 67.48 mL/min Estimated GFR (MDRD) > 60.0 ml/min Glucose 105 (74-106) mg/dL Calcium 7.6 L (8.5-10.1) mg/dL Magnesium 1.6 L (1.8-2.4) mg/dL Total Bilirubin 0.4 (0.2-1.0) mg/dL AST 14 L (15-37) IU/L ALT 15 (14-63) IU/L Alkaline Phosphatase 89 (46-116) U/L Total Protein 5.3 L (6.4-8.2) g/dL Albumin 2.5 L (3.4-5.0) g/dL Globulin 2.8 (2.6-4.0) g/dL Albumin/Globulin Ratio 0.9 (0.9-1.6) Urine Color Urine Appearance Urine pH (5.0-8.0) Ur Specific [place] (1.001-1.035) Urine Protein (NEGATIVE) mg/dL Urine Glucose (UA) (NEGATIVE) mg/dL Urine Ketones (NEGATIVE) mg/dL Urine Occult Blood (NEGATIVE) Urine Nitrite (NEGATIVE) Urine Bilirubin (NEGATIVE) Urine Urobilinogen (<2.0) EU/dL Ur Leukocyte Esterase (NEGATIVE) Urine RBC (0-2/HPF) Urine WBC (0-5/HPF) Ur Epithelial Cells (NONE-FEW) Amorphous Sediment (NEGATIVE) Urine Bacteria (NEGATIVE) Urine Mucus (NONE-MOD) Ur Random Creatinine 29.9 mg/dL Ur Random Sodium 50.0 (40.0-220.0) mmol/L Ur Random Potassium 15.9 mmol/L Med Orders - Current: Current Medications Acetaminophen (Acetaminophen 500 Mg Tab) 500 mg PO Q6H PRN PRN Reason: Pain Bacitracin (Bacitracin Oint 28.35 Gm Tube) 1 gm TOP BID [facility] Last Admin: 07/12/20 08:43 Dose: 1 applic Documented by: [place] Butter/Phenylephrine ([place] Butter/Phenylephrine Rectal Supp) 1 each RECTAL ONETIME PRN PRN Reason: Pain Famotidine (Famotidine 20 Mg Tab) 20 mg PO DAILY PRN PRN Reason: Abdominal Pain Gabapentin (Gabapentin 300 Mg Cap) 1,200 mg PO TID [facility] Last Admin: 07/12/20 05:44 Dose: Not Given Documented by: Pantoprazole Sodium 40 mg/ (Sodium Chloride) 10 mls @ 300 mls/hr IV Q24H [facility] Last Admin: 07/12/20 05:34 Dose: 300 mls/hr Documented by: Ciprofloxacin/Dextrose 400 mg/ (Premix) 200 mls @ 200 mls/hr IV Q12H [facility] Last Admin: 07/12/20 02:55 Dose: 200 mls/hr Documented by: Metronidazole 500 mg/ Premix 100 mls @ 100 mls/hr IV Q8H [facility] Last Admin: 07/12/20 08:16 Dose: 100 mls/hr Documented by: Magnesium Sulfate 4 gm/ Premix 100 mls @ 25 mls/hr IV ONETIME ONE Stop: 07/12/20 12:19 Last Admin: 07/12/20 09:47 Dose: 25 mls/hr Documented by: Potassium Chloride 40 meq/ (Premix) 100 mls @ 25 mls/hr IV ONETIME ONE Stop: 07/12/20 12:20 Last Admin: 07/12/20 09:48 Dose: 25 mls/hr Documented by: Potassium Chloride 40 meq/ (Premix) 100 mls @ 25 mls/hr IV ONETIME ONE Stop: 07/12/20 17:59 Labetalol HCl (Labetalol 100 Mg/20 Ml Mdv) 20 mg IVPUSH Q4H PRN; Protocol PRN Reason: Hypertension Metoprolol Tartrate (Metoprolol Tartrate 50 Mg Tab) 50 mg PO BID [facility] Last Admin: 07/12/20 08:14 Dose: 50 mg Documented by: Nicotine (Nicotine 14 Mg/24 Hr Patch) 14 mg TRDERM DAILY [facility] Last Admin: 07/12/20 08:16 Dose: 14 mg Documented by: Ondansetron HCl (Ondansetron 4 Mg/2 Ml Sdv) 4 mg IVPUSH Q4H PRN PRN Reason: Nausea Potassium Chloride (Potassium Chloride 20 Meq Tab.Er) 40 meq PO ONETIME ONE Stop: 07/12/20 15:01 Sodium Chloride (Sodium Chloride 0.9% 10 Ml Syringe) 10 ml FLUSH ASDIRECTED PRN PRN Reason: Keep Vein Open Sodium Chloride (Sodium Chloride 0.9% 2.5 Ml Syringe) 2.5 ml FLUSH ASDIRECTED PRN PRN Reason: Keep Vein Open Spironolactone (Spironolactone 25 Mg Tab) 12.5 mg PO DAILY [facility] Last Admin: 07/12/20 08:14 Dose: 12.5 mg Documented by: Discontinued Medications Potassium Chloride 40 meq/ (Premix) 100 mls @ 25 mls/hr IV ONETIME ONE Stop: 07/11/20 19:05 Last Admin: 07/11/20 16:34 Dose: 25 mls/hr Documented by: Sodium Chloride (Normal Saline) 1,000 mls @ 100 mls/hr IV STAT ONE Stop: 07/12/20 01:06 Last Admin: 07/11/20 16:34 Dose: 100 mls/hr Documented by: Potassium Chloride 40 meq/ (Premix) 100 mls @ 25 mls/hr IV ONETIME ONE Stop: 07/11/20 23:54 Last Admin: 07/11/20 21:15 Dose: 25 mls/hr Documented by: Labetalol HCl (Labetalol 100 Mg/20 Ml Mdv) 20 mg IVPUSH ONETIME ONE; Protocol Stop: 07/11/20 19:54 Last Admin: 07/11/20 20:44 Dose: 20 mg Documented by: Metoprolol Tartrate (Metoprolol Tartrate 50 Mg Tab) 50 mg PO ONETIME ONE Stop: 07/11/20 14:57 Last Admin: 07/11/20 16:41 Dose: Not Given Documented by: Metoprolol Tartrate (Metoprolol Tartrate 50 Mg Tab) 50 mg PO ONETIME ONE Stop: 07/11/20 16:16 Last Admin: 07/11/20 16:30 Dose: 50 mg Documented by: Omeprazole (Omeprazole 20 Mg Cap.Cr) 40 mg PO ONETIME ONE Stop: 07/11/20 14:57 Last Admin: 07/11/20 16:30 Dose: 40 mg Documented by: Potassium Chloride (Potassium Chloride 20 Meq Tab.Er) 40 meq PO ONETIME ONE Stop: 07/11/20 16:13 Last Admin: 07/11/20 16:33 Dose: 40 meq Documented by: Potassium Chloride (Potassium Chloride 20 Meq Tab.Er) 20 meq PO ONETIME ONE Stop: 07/12/20 08:25 Last Admin: 07/12/20 08:43 Dose: 20 meq Documented by: Potassium Chloride (Potassium Chloride 20 Meq Tab.Er) 40 meq PO ONETIME ONE Stop: 07/12/20 11:17 Last Admin: 07/12/20 11:30 Dose: Not Given Documented by: - Exam General: Alert, Oriented HEENT: EOMI Neck: Supple Lungs: Clear to Auscultation, Normal Respiratory Effort Cardiovascular: Regular Rate, Regular Rhythm GI/Abdominal Exam: Soft, Non-Tender Neurological: No New Focal Deficit Psy/Mental Status: Alert, Normal Mood - Patient Data Lab Results Last 24 hrs: Laboratory Results - last 24 hr 07/11/20 07/11/20 07/11/20 Range/Units 13:17 13:17 13:40 WBC 10.77 (4.0-11.0) K/uL RBC 3.73 L (4.50-5.90) M/uL Hgb 11.6 L (13.0-17.0) g/dL Hct 35.1 L (38.0-50.0) % MCV 94.1 (80.0-98.0) fL MCH 31.1 (27.0-32.0) pg MCHC 33.0 (31.0-37.0) g/dL RDW Std Deviation 57.0 (28.0-62.0) fl RDW Coeff of Teo 16 H (11.0-15.0) % Plt Count 348 (150-400) K/uL MPV 10.20 (7.40-12.00) fL Neut % (Auto) 62.9 (48.0-80.0) % Lymph % (Auto) 30.0 (16.0-40.0) % [place] % (Auto) 5.1 (0.0-15.0) % Eos % (Auto) 1.5 (0.0-7.0) % Baso % (Auto) 0.5 (0.0-1.5) % Neut # (Auto) 6.8 H (1.4-5.7) K/uL Lymph # (Auto) 3.2 H (0.6-2.4) K/uL [place] # (Auto) 0.6 (0.0-0.8) K/uL Eos # (Auto) 0.2 (0.0-0.7) K/uL Baso # (Auto) 0.1 (0.0-0.1) K/uL Nucleated RBC % 0.0 /100WBC Nucleated RBCs # 0 K/uL Sodium 137 (136-148) mmol/L Potassium 2.6 L (3.5-5.1) mmol/L Chloride 98 (98-107) mmol/L Carbon Dioxide 29.1 (21.0-32.0) mmol/L BUN 9 (7.0-18.0) mg/dL Creatinine 1.3 (0.8-1.3) mg/dL Est Cr Clr Drug Dosing 63.68 mL/min Estimated GFR (MDRD) 55.1 ml/min Glucose 134 H (74-106) mg/dL Calcium 8.2 L (8.5-10.1) mg/dL Magnesium 2.0 (1.8-2.4) mg/dL Total Bilirubin 0.7 (0.2-1.0) mg/dL AST 21 (15-37) IU/L ALT 23 (14-63) IU/L Alkaline Phosphatase 125 H (46-116) U/L Total Protein 7.1 (6.4-8.2) g/dL Albumin 3.4 (3.4-5.0) g/dL Globulin 3.7 (2.6-4.0) g/dL Albumin/Globulin Ratio 0.9 (0.9-1.6) Urine Color YELLOW Urine Appearance SLT CLOUDY Urine pH 6.5 (5.0-8.0) Ur Specific [place] 1.010 (1.001-1.035) Urine Protein NEGATIVE (NEGATIVE) mg/dL Urine Glucose (UA) 100 H (NEGATIVE) mg/dL Urine Ketones NEGATIVE (NEGATIVE) mg/dL Urine Occult Blood TRACE-INTACT H (NEGATIVE) Urine Nitrite NEGATIVE (NEGATIVE) Urine Bilirubin NEGATIVE (NEGATIVE) Urine Urobilinogen 0.2 (<2.0) EU/dL Ur Leukocyte Esterase NEGATIVE (NEGATIVE) Urine RBC 0-1 (0-2/HPF) Urine WBC 2-3 (0-5/HPF) Ur Epithelial Cells RARE (NONE-FEW) Amorphous Sediment RARE (NEGATIVE) Urine Bacteria RARE (NEGATIVE) Urine Mucus RARE (NONE-MOD) Ur Random Creatinine mg/dL Ur Random Sodium (40.0-220.0) mmol/L Ur Random Potassium mmol/L 07/11/20 07/12/20 07/12/20 Range/Units 13:40 05:05 05:05 WBC 8.31 (4.0-11.0) K/uL RBC 2.89 L (4.50-5.90) M/uL Hgb 9.1 L (13.0-17.0) g/dL Hct 27.1 L (38.0-50.0) % MCV 93.8 (80.0-98.0) fL MCH 31.5 (27.0-32.0) pg MCHC 33.6 (31.0-37.0) g/dL RDW Std Deviation 56.7 (28.0-62.0) fl RDW Coeff of Teo 16 H (11.0-15.0) % Plt Count 253 (150-400) K/uL MPV 10.30 (7.40-12.00) fL Neut % (Auto) 50.2 (48.0-80.0) % Lymph % (Auto) 40.3 H (16.0-40.0) % [place] % (Auto) 6.5 (0.0-15.0) % Eos % (Auto) 2.6 (0.0-7.0) % Baso % (Auto) 0.4 (0.0-1.5) % Neut # (Auto) 4.2 (1.4-5.7) K/uL Lymph # (Auto) 3.4 H (0.6-2.4) K/uL [place] # (Auto) 0.5 (0.0-0.8) K/uL Eos # (Auto) 0.2 (0.0-0.7) K/uL Baso # (Auto) 0.0 (0.0-0.1) K/uL Nucleated RBC % 0.0 /100WBC Nucleated RBCs # 0 K/uL Sodium 136 (136-148) mmol/L Potassium 2.9 L (3.5-5.1) mmol/L Chloride 101 (98-107) mmol/L Carbon Dioxide 26.7 (21.0-32.0) mmol/L BUN 6 L (7.0-18.0) mg/dL Creatinine 1.1 (0.8-1.3) mg/dL Est Cr Clr Drug Dosing 67.48 mL/min Estimated GFR (MDRD) > 60.0 ml/min Glucose 105 (74-106) mg/dL Calcium 7.6 L (8.5-10.1) mg/dL Magnesium 1.6 L (1.8-2.4) mg/dL Total Bilirubin 0.4 (0.2-1.0) mg/dL AST 14 L (15-37) IU/L ALT 15 (14-63) IU/L Alkaline Phosphatase 89 (46-116) U/L Total Protein 5.3 L (6.4-8.2) g/dL Albumin 2.5 L (3.4-5.0) g/dL Globulin 2.8 (2.6-4.0) g/dL Albumin/Globulin Ratio 0.9 (0.9-1.6) Urine Color Urine Appearance Urine pH (5.0-8.0) Ur Specific [place] (1.001-1.035) Urine Protein (NEGATIVE) mg/dL Urine Glucose (UA) (NEGATIVE) mg/dL Urine Ketones (NEGATIVE) mg/dL Urine Occult Blood (NEGATIVE) Urine Nitrite (NEGATIVE) Urine Bilirubin (NEGATIVE) Urine Urobilinogen (<2.0) EU/dL Ur Leukocyte Esterase (NEGATIVE) Urine RBC (0-2/HPF) Urine WBC (0-5/HPF) Ur Epithelial Cells (NONE-FEW) Amorphous Sediment (NEGATIVE) Urine Bacteria (NEGATIVE) Urine Mucus (NONE-MOD) Ur Random Creatinine 29.9 mg/dL Ur Random Sodium 50.0 (40.0-220.0) mmol/L Ur Random Potassium 15.9 mmol/L Result Diagrams: 07/12/20 05:05 07/12/20 05:05 Sepsis Event Note - Evaluation Sepsis Screening Result: No Definite Risk - Focused Exam Vital Signs: Vital Signs Temp Pulse Pulse Resp BP BP Pulse Ox 07/12/20 11:44 96.5 F L 62 20 155/81 H 99 07/12/20 08:14 66 167/75 H 07/12/20 07:34 97.7 F 66 20 167/75 H 97 07/12/20 04:00 98.2 F 68 18 162/75 H 97 07/12/20 00:00 98.1 F 72 18 158/65 H 98 - Problem List & Annotations (1) GI bleed SNOMED Code(s): 82547740 Code(s): K92.2 - GASTROINTESTINAL HEMORRHAGE, UNSPECIFIED Status: Acute Current Visit: No (2) Hypokalemia SNOMED Code(s): 56413204 Code(s): E87.6 - HYPOKALEMIA Status: Acute Current Visit: Yes (3) Proctitis SNOMED Code(s): 4534430 Code(s): K62.89 - OTHER SPECIFIED DISEASES OF ANUS AND RECTUM Status: Acute Current Visit: No (4) Volume depletion SNOMED Code(s): 583176214 Code(s): E86.9 - VOLUME DEPLETION, UNSPECIFIED Status: Acute Current Visit: No - Problem List Review Problem List Initiated/Reviewed/Updated: Yes - My Orders Last 24 Hours: My Active Orders 07/11/20 13:40 OSMOLALITY - URINE Routine 07/11/20 13:53 OSMOLALITY - SERUM [REF] Routine 07/11/20 15:03 Telemetry Monitoring [Cardiac Monitoring] [RC] Q8H 07/11/20 15:30 Oxygen Therapy [RC] PRN Up With Assistance [RC] ASDIRECTED VTE/DVT Education [RC] PER UNIT ROUTINE Vital Signs [RC] Q4H Ondansetron [Zofran] 4 mg IVPUSH Q4H PRN Resuscitation Status Routine 07/11/20 15:31 Antiembolic Devices [RC] PER UNIT ROUTINE Sequential Compression Device [OM.PC] Per Unit Routine 07/11/20 15:45 Ciprofloxacin in D5W [Cipro in D5W 400 MG/200 ML] 400 mg Premix Bag 1 bag IV Q12H 07/11/20 Dinner Regular Diet [DIET] 07/11/20 16:10 [place] Butter/Phenylephrine [Preparation H Supp] 1 each RECTAL ONETIME PRN Famotidine [Pepcid] 20 mg PO DAILY PRN 07/11/20 16:11 Acetaminophen [Tylenol Extra Strength] 500 mg PO Q6H PRN 07/11/20 17:00 metroNIDAZOLE/Normal Saline [Flagyl in NS 500 MG/100 ML] 500 mg Premix Bag 1 bag IV Q8H 07/11/20 20:00 Spironolactone [Aldactone] 12.5 mg PO DAILY 07/11/20 21:00 Bacitracin [Bacitracin Oint] 1 gm TOP BID Metoprolol Tartrate [Lopressor] 50 mg PO BID 07/11/20 22:00 Gabapentin [Neurontin] 1,200 mg PO TID 07/12/20 05:00 Pantoprazole [ProTONIX IV] 40 mg Sodium Chloride 0.9% [Normal Saline] 10 ml IV Q24H 07/12/20 08:20 Magnesium Sulfate/Water [Magnesium Sulfate in Water 4 GM/100 ML] 4 gm Premix Bag 1 bag IV ONETIME 07/12/20 08:21 Potassium Chloride Riders [KCL in Water 40 MEQ/100 ML] 40 meq Premix Bag 1 bag IV ONETIME 07/12/20 16:00 HEMOGLOBIN/HEMATOCRIT,HH [HEME] Routine 07/13/20 05:11 CBC WITH AUTO DIFF [HEME] AM COMPREHENSIVE METABOLIC PN,CMP [CHEM] AM MAGNESIUM [CHEM] AM 07/14/20 05:11 CBC WITH AUTO DIFF [HEME] AM COMPREHENSIVE METABOLIC PN,CMP [CHEM] AM MAGNESIUM [CHEM] AM - Plan Plan:: Assessment: 1. Proctitis 2. Hypokalemia of unknown etiology 3. Normocytic anemia 4. PMH: tobacco abuse , HTN , prostate CA 5. Hypomagnesemia Plan 1.Proctitis: Hemoccult positive in setting of proctitis: hemoglobin currently stable. Hgb stable: recheck this PM to monitor for any drops or need for PRBC transfusion For proctitis: continue Cipro/flagyl and monitor for efficacy Prep-H for pain relief PRN 2. Hypokalemia: 40 mEq started in ED. Replete accordingly; recheck this PM for response ; most likely renal despite urine studies not diagnostic (based off of imaging and response) Recheck this PM and treat accordingly Hypomagnesemia: replete w. 4 gms ; recheck in AM HTN: cont Metoprolol+ IV labetalol PRN 3. Past medical history of tobacco abuse: Nicotine patch ordered
[2020-07-12] MEDS ORDERED: Sodium Chloride 0.9% 500 ML IV SCH (17:30)
[2020-07-12] MEDS ORDERED: Labetalol 100 MG/20 ML MDV IVPUSH PRN (17:59)
--- NOTE | 2020-07-12 18:03 | PCM.SN.2 ---
- Free Text/Narrative Note: Pt at approx 5 pm noted to have small amount of BRP per rectum ; noted on undergarment and in toilet. RANJIT suggested some BRB and posterior hemorrhoid. Moderate tenderness Spoke to surgery regarding findings suggesting this is most likely the proctitis and not fissure/hemorrhoid; Hgb stable at 9.9 (up from previous draw) ; BP elevated but pt had refused his HTN meds earlier ; PRN labetalol given w. 500 cc NS bolus; responded well w. SBP recheck at 150;s pt clinically stable and in no acute distress. Denies pain, fever, chills, CP,SOB
[2020-07-12] MEDS ORDERED: Tranexamic Acid 1,000 MG in Sodium Chloride 0.9% 100 ML IV ONE (19:40)
[2020-07-12] MEDS ORDERED: Lactated Ringers 1,000 ML IV ONE ×2 (20:17→21:58)
[2020-07-12] MEDS ORDERED: Hydrocortisone 2.5% Crm 30 GM Tube TOP SCH (21:00)
--- NOTE | 2020-07-12 21:18 | PCM.SN.2 ---
- Free Text/Narrative Note: Patient continues to have Bright red blood per rectum, patients BP did drop from before and he feels dizzy, cold and clammy, no tachycardia, repeat Hb has dropped as well significantly from 9.9 to 7.8, patient has 2 large bore IV, blood transfusion and FFP transfusion initiated,getting IV fluids bolus, patient will be transferred to [facility] for higher level of care for active GI bleeding which isnt available here at our facility.
[2020-07-12] MEDS ORDERED: Pantoprazole 40 MG in Sodium Chloride 0.9% 10 ML IV ONE (21:21)
--- NOTE | 2020-07-12 21:34 | PCM.DCSUM1 ---
Discharge Summary - Hospital Course Free Text/Narrative:: 69-year-old male with past medical history of GERD, proctitis, hypertension, tobacco abuse; presenting today for readmission after absconding earlier that morning. Patient was earlier admitted to the medical floor on 07/09/2020 for near syncopal episode and ambulatory dysfunction in the setting of melena per rectum x6 days. Patient was admitted for electrolyte disturbances including hypokalemia/hypomagnesemia and proctitis as found on CTA abdomen, patient was scheduled for a inpatient diagnostic colonoscopy w. general surgery. Patient however on July 11, 2020 left AGAINST MEDICAL ADVICE with his IV still in place. Law Enforcement had to escort patient back to the ER to have his IV removed and patient left AGAINST MEDICAL ADVICE after signing form. Patient came back to the ER requesting admission as he wasn't feeling well, Patient was found to have severe hypokalemia with high blood pressure, received aggressive IV potassium and IV magnesium repletion, he was being worked up for possible primary hyperaldosteronism. Patient was also started on IV Flagyl and ciprofloxacin for proctitis, patients had no bleeding on day of admission but following day he started having bright red blood in the evening, Dr Cordova (surgery) recommended to watch his hemodynamics and continue treating him for proctitis for now unless bleeding gets worse, Over next few hours patients blood pressure was softer, he was passing more blood clots, patient was transfused blood, and aggressive IV fluids resuscitation was started, and patient was emergently transferred to [facility] for higher level of care, - Discharge Data Discharge Date: 07/12/20 Discharge Disposition: DC/Tfer to Other 70 Condition: Stable - Referral to Home Health Primary Care Physician: PCP None - Discharge Plan Home Medications: Home Meds Omeprazole 40 mg PO DAILY 07/09/20 [History] Gabapentin [Neurontin] 1,200 mg PO TID 07/11/20 [History] Metoprolol Tartrate 50 mg PO BID 07/11/20 [History] Forms: ED Department Discharge Referrals: PCP,None [Primary Care Provider] - - Patient Data Vitals - Most Recent: Last Vital Signs Temp 36.8 C 07/12/20 19:25 Pulse 63 07/12/20 20:13 Resp 16 07/12/20 19:25 BP 115/67 07/12/20 20:13 Pulse Ox 98 07/12/20 19:25 Weight - Most Recent: 73.21 kg I&O - Last 24 hours: Intake & Output 07/12/20 07/12/20 07/12/20 06:59 14:59 22:59 Intake Total 650 1300 Output Total 1150 600 Balance -500 700 Lab Results - Last 24 hrs: Laboratory Results - last 24 hr 07/12/20 07/12/20 07/12/20 Range/Units 05:05 05:05 16:20 WBC 8.31 (4.0-11.0) K/uL RBC 2.89 L (4.50-5.90) M/uL Hgb 9.1 L (13.0-17.0) g/dL Hct 27.1 L (38.0-50.0) % MCV 93.8 (80.0-98.0) fL MCH 31.5 (27.0-32.0) pg MCHC 33.6 (31.0-37.0) g/dL RDW Std Deviation 56.7 (28.0-62.0) fl RDW Coeff of Teo 16 H (11.0-15.0) % Plt Count 253 (150-400) K/uL MPV 10.30 (7.40-12.00) fL Neut % (Auto) 50.2 (48.0-80.0) % Lymph % (Auto) 40.3 H (16.0-40.0) % Weber % (Auto) 6.5 (0.0-15.0) % Eos % (Auto) 2.6 (0.0-7.0) % Baso % (Auto) 0.4 (0.0-1.5) % Neut # (Auto) 4.2 (1.4-5.7) K/uL Lymph # (Auto) 3.4 H (0.6-2.4) K/uL Weber # (Auto) 0.5 (0.0-0.8) K/uL Eos # (Auto) 0.2 (0.0-0.7) K/uL Baso # (Auto) 0.0 (0.0-0.1) K/uL Nucleated RBC % 0.0 /100WBC Nucleated RBCs # 0 K/uL INR APTT (18.6-31.3) SEC Sodium 136 (136-148) mmol/L Potassium 2.9 L 3.4 L (3.5-5.1) mmol/L Chloride 101 (98-107) mmol/L Carbon Dioxide 26.7 (21.0-32.0) mmol/L BUN 6 L (7.0-18.0) mg/dL Creatinine 1.1 (0.8-1.3) mg/dL Est Cr Clr Drug Dosing 67.48 mL/min Estimated GFR (MDRD) > 60.0 ml/min Glucose 105 (74-106) mg/dL Calcium 7.6 L (8.5-10.1) mg/dL Magnesium 1.6 L (1.8-2.4) mg/dL Total Bilirubin 0.4 (0.2-1.0) mg/dL AST 14 L (15-37) IU/L ALT 15 (14-63) IU/L Alkaline Phosphatase 89 (46-116) U/L Total Protein 5.3 L (6.4-8.2) g/dL Albumin 2.5 L (3.4-5.0) g/dL Globulin 2.8 (2.6-4.0) g/dL Albumin/Globulin Ratio 0.9 (0.9-1.6) 07/12/20 07/12/20 07/12/20 Range/Units 16:20 20:50 20:50 WBC (4.0-11.0) K/uL RBC (4.50-5.90) M/uL Hgb 9.9 L (13.0-17.0) g/dL Hct 29.6 L (38.0-50.0) % MCV (80.0-98.0) fL MCH (27.0-32.0) pg MCHC (31.0-37.0) g/dL RDW Std Deviation (28.0-62.0) fl RDW Coeff of Teo (11.0-15.0) % Plt Count (150-400) K/uL MPV (7.40-12.00) fL Neut % (Auto) (48.0-80.0) % Lymph % (Auto) (16.0-40.0) % Weber % (Auto) (0.0-15.0) % Eos % (Auto) (0.0-7.0) % Baso % (Auto) (0.0-1.5) % Neut # (Auto) (1.4-5.7) K/uL Lymph # (Auto) (0.6-2.4) K/uL Weber # (Auto) (0.0-0.8) K/uL Eos # (Auto) (0.0-0.7) K/uL Baso # (Auto) (0.0-0.1) K/uL Nucleated RBC % /100WBC Nucleated RBCs # K/uL INR 1.10 APTT 25.9 (18.6-31.3) SEC Sodium (136-148) mmol/L Potassium (3.5-5.1) mmol/L Chloride (98-107) mmol/L Carbon Dioxide (21.0-32.0) mmol/L BUN (7.0-18.0) mg/dL Creatinine (0.8-1.3) mg/dL Est Cr Clr Drug Dosing mL/min Estimated GFR (MDRD) ml/min Glucose (74-106) mg/dL Calcium (8.5-10.1) mg/dL Magnesium (1.8-2.4) mg/dL Total Bilirubin (0.2-1.0) mg/dL AST (15-37) IU/L ALT (14-63) IU/L Alkaline Phosphatase (46-116) U/L Total Protein (6.4-8.2) g/dL Albumin (3.4-5.0) g/dL Globulin (2.6-4.0) g/dL Albumin/Globulin Ratio (0.9-1.6) // Range/Units 20:50 WBC (4.0-11.0) K/uL RBC (4.50-5.90) M/uL Hgb 7.8 L (13.0-17.0) g/dL Hct 23.5 L (38.0-50.0) % MCV (80.0-98.0) fL MCH (27.0-32.0) pg MCHC (31.0-37.0) g/dL RDW Std Deviation (28.0-62.0) fl RDW Coeff of Teo (11.0-15.0) % Plt Count (150-400) K/uL MPV (7.40-12.00) fL Neut % (Auto) (48.0-80.0) % Lymph % (Auto) (16.0-40.0) % Weber % (Auto) (0.0-15.0) % Eos % (Auto) (0.0-7.0) % Baso % (Auto) (0.0-1.5) % Neut # (Auto) (1.4-5.7) K/uL Lymph # (Auto) (0.6-2.4) K/uL Weber # (Auto) (0.0-0.8) K/uL Eos # (Auto) (0.0-0.7) K/uL Baso # (Auto) (0.0-0.1) K/uL Nucleated RBC % /100WBC Nucleated RBCs # K/uL INR APTT (18.6-31.3) SEC Sodium (136-148) mmol/L Potassium (3.5-5.1) mmol/L Chloride (98-107) mmol/L Carbon Dioxide (21.0-32.0) mmol/L BUN (7.0-18.0) mg/dL Creatinine (0.8-1.3) mg/dL Est Cr Clr Drug Dosing mL/min Estimated GFR (MDRD) ml/min Glucose (74-106) mg/dL Calcium (8.5-10.1) mg/dL Magnesium (1.8-2.4) mg/dL Total Bilirubin (0.2-1.0) mg/dL AST (15-37) IU/L ALT (14-63) IU/L Alkaline Phosphatase (46-116) U/L Total Protein (6.4-8.2) g/dL Albumin (3.4-5.0) g/dL Globulin (2.6-4.0) g/dL Albumin/Globulin Ratio (0.9-1.6) Med Orders - Current: Current Medications Acetaminophen (Acetaminophen 500 Mg Tab) 500 mg PO Q6H PRN PRN Reason: Pain Bacitracin (Bacitracin Oint 28.35 Gm Tube) 1 gm TOP BID HUNG Last Admin: 07/12/20 20:16 Dose: 1 applic Documented by: Fletcher Butter/Phenylephrine (Fletcher Butter/Phenylephrine Rectal Supp) 1 each RECTAL ONETIME PRN PRN Reason: Pain Famotidine (Famotidine 20 Mg Tab) 20 mg PO DAILY PRN PRN Reason: Abdominal Pain Gabapentin (Gabapentin 300 Mg Cap) 1,200 mg PO TID [facility] Last Admin: 07/12/20 14:06 Dose: Not Given Documented by: Hydrocortisone (Hydrocortisone 2.5% Crm 30 Gm Tube) 0 gm TOP BID [facility] Pantoprazole Sodium 40 mg/ (Sodium Chloride) 10 mls @ 300 mls/hr IV Q24H [facility] Last Admin: 07/12/20 05:34 Dose: 300 mls/hr Documented by: Ciprofloxacin/Dextrose 400 mg/ (Premix) 200 mls @ 200 mls/hr IV Q12H [facility] Last Admin: 07/12/20 15:19 Dose: 200 mls/hr Documented by: Metronidazole 500 mg/ Premix 100 mls @ 100 mls/hr IV Q8H [facility] Last Admin: 07/12/20 16:30 Dose: 100 mls/hr Documented by: Sodium Chloride (Normal Saline) 500 mls @ 999 mls/hr IV STAT [facility] Last Admin: 07/12/20 17:41 Dose: 999 mls/hr Documented by: Nicotine (Nicotine 14 Mg/24 Hr Patch) 14 mg TRDERM DAILY [facility] Last Admin: 07/12/20 08:16 Dose: 14 mg Documented by: Ondansetron HCl (Ondansetron 4 Mg/2 Ml Sdv) 4 mg IVPUSH Q4H PRN PRN Reason: Nausea Sodium Chloride (Sodium Chloride 0.9% 10 Ml Syringe) 10 ml FLUSH ASDIRECTED PRN PRN Reason: Keep Vein Open Sodium Chloride (Sodium Chloride 0.9% 2.5 Ml Syringe) 2.5 ml FLUSH ASDIRECTED PRN PRN Reason: Keep Vein Open Discontinued Medications Potassium Chloride 40 meq/ (Premix) 100 mls @ 25 mls/hr IV ONETIME ONE Stop: 07/11/20 19:05 Last Admin: 07/11/20 16:34 Dose: 25 mls/hr Documented by: Sodium Chloride (Normal Saline) 1,000 mls @ 100 mls/hr IV STAT ONE Stop: 07/12/20 01:06 Last Admin: 07/11/20 16:34 Dose: 100 mls/hr Documented by: Potassium Chloride 40 meq/ (Premix) 100 mls @ 25 mls/hr IV ONETIME ONE Stop: 07/11/20 23:54 Last Admin: 07/11/20 21:15 Dose: 25 mls/hr Documented by: Magnesium Sulfate 4 gm/ Premix 100 mls @ 25 mls/hr IV ONETIME ONE Stop: 07/12/20 12:19 Last Admin: 07/12/20 09:47 Dose: 25 mls/hr Documented by: Potassium Chloride 40 meq/ (Premix) 100 mls @ 25 mls/hr IV ONETIME ONE Stop: 07/12/20 12:20 Last Admin: 07/12/20 09:48 Dose: 25 mls/hr Documented by: Potassium Chloride 40 meq/ (Premix) 100 mls @ 25 mls/hr IV ONETIME ONE Stop: 07/12/20 17:59 Last Admin: 07/12/20 14:06 Dose: 25 mls/hr Documented by: Tranexamic Acid 1,000 mg/ (Sodium Chloride) 110 mls @ 600 mls/hr IV ONETIME ONE Stop: 07/12/20 19:50 Last Admin: 07/12/20 20:54 Dose: 600 mls/hr Documented by: Lactated Ringer's (Ringers, Lactated) 1,000 mls @ 999 mls/hr IV .BOLUS ONE Stop: 07/12/20 21:17 Last Admin: 07/12/20 20:29 Dose: 999 mls/hr Documented by: Pantoprazole Sodium 40 mg/ (Sodium Chloride) 10 mls @ 300 mls/hr IV NOW ONE Stop: 07/12/20 21:22 Labetalol HCl (Labetalol 100 Mg/20 Ml Mdv) 20 mg IVPUSH ONETIME ONE; Protocol Stop: 07/11/20 19:54 Last Admin: 07/11/20 20:44 Dose: 20 mg Documented by: Labetalol HCl (Labetalol 100 Mg/20 Ml Mdv) 20 mg IVPUSH Q4H PRN; Protocol PRN Reason: Hypertension Last Admin: 07/12/20 17:21 Dose: 20 mg Documented by: Labetalol HCl (Labetalol 100 Mg/20 Ml Mdv) 20 mg IVPUSH Q3H PRN; Protocol PRN Reason: Hypertension Metoprolol Tartrate (Metoprolol Tartrate 50 Mg Tab) 50 mg PO ONETIME ONE Stop: 07/11/20 14:57 Last Admin: 07/11/20 16:41 Dose: Not Given Documented by: Metoprolol Tartrate (Metoprolol Tartrate 50 Mg Tab) 50 mg PO BID [facility] Last Admin: 07/12/20 20:13 Dose: 50 mg Documented by: Metoprolol Tartrate (Metoprolol Tartrate 50 Mg Tab) 50 mg PO ONETIME ONE Stop: 07/11/20 16:16 Last Admin: 07/11/20 16:30 Dose: 50 mg Documented by: Omeprazole (Omeprazole 20 Mg Cap.Cr) 40 mg PO ONETIME ONE Stop: 07/11/20 14:57 Last Admin: 07/11/20 16:30 Dose: 40 mg Documented by: Potassium Chloride (Potassium Chloride 20 Meq Tab.Er) 40 meq PO ONETIME ONE Stop: 07/11/20 16:13 Last Admin: 07/11/20 16:33 Dose: 40 meq Documented by: Potassium Chloride (Potassium Chloride 20 Meq Tab.Er) 20 meq PO ONETIME ONE Stop: 07/12/20 08:25 Last Admin: 07/12/20 08:43 Dose: 20 meq Documented by: Potassium Chloride (Potassium Chloride 20 Meq Tab.Er) 40 meq PO ONETIME ONE Stop: 07/12/20 11:17 Last Admin: 07/12/20 11:30 Dose: Not Given Documented by: Potassium Chloride (Potassium Chloride 20 Meq Tab.Er) 40 meq PO ONETIME ONE Stop: 07/12/20 15:01 Last Admin: 07/12/20 14:05 Dose: 40 meq Documented by: Potassium Chloride (Potassium Chloride 20 Meq Tab.Er) 40 meq PO ONETIME ONE Stop: 07/12/20 19:23 Last Admin: 07/12/20 20:14 Dose: 40 meq Documented by: Spironolactone (Spironolactone 25 Mg Tab) 12.5 mg PO DAILY [facility] Last Admin: 07/12/20 08:14 Dose: 12.5 mg Documented by:
[2020-07-13] MEDS: Gabapentin 300 MG Cap PO SCH (05:05)
== END 2020-07-12 22:20 | disposition other institution (70) ==
LOC: MW.ED 12:26 → MW.MS 15:05 → UNDOADMOB 15:14
PROVIDERS: ADMIT Student in an Organized Health Care Education/Training Program; ATTEND Student in an Organized Health Care Education/Training Program
DX: K62.89 Other specified diseases of anus and rectum (principal); E87.6 Hypokalemia; D64.9 Anemia, unspecified; I10 Essential (primary) hypertension; Z79.899 Other long term (current) drug therapy; Z87.891 Personal history of nicotine dependence; E83.42 Hypomagnesemia
CPT/HCPCS: 36415; 36430; 80053; 81001; 82088; 82570; 82947; 83735; 83930; 83935; 84132; 84133; 84244; 84300; 85014; 85018; 85025; 85610; 85730; 86850; 86900; 86901; 86920; 86921; 86922; 99285; A9270; C9113; J0744; J3475; J3480; J3490; J7030; J7040; J7120; P9016; 96365; 96367; 96368; 96375; 96376; 99284; G0378